=== PATIENT | female | born 1960 ===

== ENCOUNTER 2017-03-27 09:38 | Emergency (ER) | payer MEDICARE, OTHER ==
[2017-03-27 09:43] VITALS: O2SAT 97; BMI 31.3
[2017-03-27] MEDS ORDERED: oxyCODONE 5 mg Immediate Release Tab PO STA (10:56)
[2017-03-27] MEDS ORDERED: oxyCODONE 5 mg Immediate Release Tab ONE (11:08)
[2017-03-27] MEDS ORDERED: Bacitracin 500 Units/gm Oint Foilpak UD ONE (11:16)
--- NOTE | 2017-03-27 12:34 | RAD ---
PROCEDURE: Radiographs of the Right Shoulder HISTORY: r/o fx COMPARISON: No prior. FINDINGS: BONES: No definitive evidence of acute displaced fracture nor dislocation. If symptoms persist or occult fracture suspected clinically, recommend followup CT scan or MRI. . JOINTS: Mild degenerative changes both acromioclavicular and glenohumeral joints. . SOFT TISSUES: Normal. OTHER FINDINGS: None. IMPRESSION: No definitive evidence of acute displaced fracture nor dislocation. If symptoms persist or occult fracture suspected clinically, recommend followup CT scan or MRI Mild degenerative changes both acromioclavicular and glenohumeral joints. .
--- NOTE | 2017-03-27 12:36 | RAD ---
PROCEDURE: Right elbow dated 03/27/2017 HISTORY: r/o fx COMPARISON: Comparison made with concurrent radiographs of the right forearm. TECHNIQUE: Frontal and lateral views obtained. FINDINGS: BONES: No fracture or destructive lesion. JOINT SPACES: Mild degenerative changes with what appears represent spurring along the medial aspect of the coronoid process OTHER FINDINGS: No posterior nor significant anterior joint effusion identified. IMPRESSION: No evidence of acute displaced fracture nor dislocation. Mild DJD.
--- NOTE | 2017-03-27 12:36 | C.PDOC ---
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 Patient states she was holding her grand daughter in her left hand and broke her fall with outstretch right hand. Patient reports pain to the bilateral knees, right wrist and right shoulder. Denies LOC, head injury, symptoms prior to the fall, back pain, weakness or numbness. 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) Past Medical History Reviewed: Historical Data, Nursing Documentation, Vital Signs Vital Signs: Last Vital Signs Temp 98.7 F 03/27/17 13:47 Pulse 61 03/27/17 13:47 Resp 20 03/27/17 13:47 BP 103/61 03/27/17 13:47 Pulse Ox 97 03/27/17 16:03 - Medical History PMH: Arthritis, Asthma, CAD, Colonic Polyps (6 YRS AGO), COPD, Depression, Emphysema, Gall Bladder Disease (s/p Cholecystectomy 1998), HTN, Hypercholesterolemia, Hyperthyroidism, Hypothyroidism, Osteoporosis, Pancreatitis Surgical History: Back Surgery (cervical), Cholecystectomy (1998) - [facility] Procedures DORSAL & DORSOLUMBAR FUSION OF POSTERIOR COL/TECHNIQUE (04/04/15) ENDOSC POLYPECTOMY OF LG INTEST (01/05/15) ESOPHAGOGASTRODUODENOSCOPY [EGD] W/CLOSED BIOPSY (07/17/14) EXCISION INTERVERT DISC (02/22/14) EXCISION OF DUODENUM, ENDO, DIAGN (03/10/16) EXCISION OF STOMACH, ENDO, DIAGN (03/10/16) FLUOROSCOPY OF BILE DUCTS USING OTHER CONTRAST (03/10/16) FUSION/REFUS OF 2-3 VERTEBRAE (04/04/15) GAIT TRAINING/FUNCTIONAL AMBULATION TREATMENT (11/19/15) HOME MANAGEMENT TREATMENT (11/19/15) INSERTION OF INFUSION DEV INTO SUP VENA CAVA, PERC APPROACH (03/10/16) INSERTION OF INTERBODY SPINAL FUSION DEVICE (02/22/14) INSPECTION OF HEPATOBILIARY DUCT, ENDO (03/10/16) LEFT HEART CARDIAC CATH (02/14/14) LT HEART ANGIOCARDIOGRAM (02/14/14) NEBULIZER THERAPY (04/06/15) OCCUPATIONAL THERAPY (04/06/15) OTH CERVICAL FUSION OF ANTERIOR COLUMN, ANTERIOR TECHNIQUE (02/22/14) PHYSICAL THERAPY NEC (04/06/15) RECREATIONAL THERAPY (04/06/15) RELEASE LUMBAR VERTEBRA, OPEN APPROACH (11/14/15) REMOVAL OF INFUSION DEV FROM GREAT VESSEL, LUMP INSPECTOR APPROACH (03/10/16) ULTRASONOGRAPHY OF SUPERIOR VENA CAVA, GUIDANCE (03/10/16) Family History: States: No Known Family Hx - Social History Hx Alcohol Use: No Hx Substance Use: No - Immunization History Hx Tetanus Toxoid Vaccination: No Hx Influenza Vaccination: No Hx Pneumococcal Vaccination: No Review Of Systems Except As Marked, All Systems Reviewed And Found Negative. Musculoskeletal: Positive for: Shoulder Pain (Right Shoulder.), Arm Pain (Right Arm. ), Other ((+) Bilateral knee pain. Right wrist pain. ). Negative for: Back Pain Neurological: Negative for: Weakness, Numbness Physical Exam - Physical Exam Appears: Well, Non-toxic, In Acute Distress (Moderate distress secondary to pain. ) Skin: Warm, Dry, No Rash, Other (Right Arm - No lacerations. No abrasions. Bilateral Knees - Abrasions to the anterior aspect. ) Head: Atraumatic, Normacephalic, No Swelling, No Abrasion, No Laceration Neck: Normal, Normal ROM, Supple Chest: Symmetrical, No Tenderness Cardiovascular: Rhythm Regular, No Murmur Respiratory: Normal Breath Sounds, No Rales, No Rhonchi, No Stridor, No Wheezing Extremity: Tenderness (Diffuse tenderness to the right arm.), Capillary Refill ( <2 ), No Deformity Pulses: Left Radial: Normal, Right Radial: Normal, Left Dorsalis Pedis: Normal, Right Dorsalis Pedis: Normal Neurological/Psych: Oriented x3, Normal Speech, Normal Motor ED Course And Treatment O2 Sat by Pulse Oximetry: 97 - Other Rad X-Ray - Right Shoulder X-Ray: Viewed By Me, Read By Radiologist Interpretation: PROCEDURE: Radiographs of the Right Shoulder. HISTORY: r/o fx. COMPARISON: No prior. FINDINGS: BONES: No definitive evidence of acute displaced fracture nor dislocation. If symptoms persist or occult fracture suspected clinically, recommend followup CT scan or MRI. . JOINTS: Mild degenerative changes both acromioclavicular and glenohumeral joints. . SOFT TISSUES: Normal. OTHER FINDINGS: None. IMPRESSION: No definitive evidence of acute displaced fracture nor dislocation. If symptoms persist or occult fracture suspected clinically, recommend followup CT scan or MRI. Mild degenerative changes both acromioclavicular and glenohumeral joints. X-Ray - Right Forearm X-Ray: Viewed By Me, Read By Radiologist Interpretation: ADDENDUM: Typographical error in the procedure section of the report of which reads as follows: "Right elbow dated 03/27/2017.". This should read as follows: Right forearm dated 03/27/2017." . [ Addendum Report Added by Gavino Wilson MD at 03/27/2017 12:42:08 ]. PROCEDURE: Right elbow dated 03/27/2017. HISTORY: r/o fx. COMPARISON: Comparison made with concurrent radiographs of the right forearm. TECHNIQUE: Frontal and lateral views obtained. FINDINGS: BONES: No fracture or destructive lesion. JOINT SPACES: Mild degenerative changes with what appears represent spurring along the medial aspect of the coronoid process. OTHER FINDINGS: No posterior nor significant anterior joint effusion identified. IMPRESSION: No evidence of acute displaced fracture nor dislocation. Mild DJD. X-Ray - Right Elbow X-Ray: Viewed By Me, Read By Radiologist Interpretation: PROCEDURE: Right elbow dated 03/27/2017. HISTORY: r/o fx. COMPARISON: Correlation made with concurrent radiographs of the right elbow. FINDINGS: BONES: Normal. No fracture. JOINTS: Mild DJD with small osteophyte seen projecting along the medial aspect of the olecranon process. SOFT TISSUES: Normal. JOINT EFFUSION: No posterior nor significant anterior joint effusion. OTHER FINDINGS: None. IMPRESSION: No acute fractures. Mild DJD. X-Ray - Bilateral Knees X-Ray: Viewed By Me, Read By Radiologist Interpretation: PROCEDURE: Bilateral knees. AP lateral and tunnel views of the knees performed. HISTORY: Dated 03/27/2017 rule out fracture. COMPARISON : No prior. FINDINGS: Current study reveals no evidence of acute displaced fracture nor dislocation. The osseous structures appear intact. Joint spaces are relatively preserved. . There appears to be a small small bilateral suprapatellar joint effusions right slightly larger than left. . If symptoms persist or occult fracture suspected clinically recommend repeat radiographs in 5-10 days as most fractures should become radiographically evident in this timeframe. Impression: No fracture. There appears be small suprapatellar joint effusions right slightly larger than left . If symptoms persist or occult fracture suspected clinically recommend followup CT scan. Medical Decision Making Medical Decision Making: PLAN: * X-Ray - Bilateral Knees, Right Elbow, Right Forearm, Right Shoulder, Right Wrist * Flexeril PO * Motrin PO * Percocet PO * Tetanus IM Disposition - Disposition Referrals: [facility] Kemi Ge, [Non-Staff] - Disposition: HOME/ ROUTINE Disposition Time: 13:30 Condition: IMPROVED Additional Instructions: Thank you for letting us take care of you today. Your provider was Dr. Freeman. You were treated for multiple contusions. The emergency medical care you received today was directed at your acute symptoms. If you were prescribed any medication, please fill it and take as directed. It may take several days for your symptoms to resolve. Return to the Emergency Department if your symptoms worsen, do not improve, or if you have any other problems. Please contact your doctor or call one of the physicians/clinics you have been referred to that are listed on the Patient Visit Information form that is included in your discharge packet. Bring any paperwork you were given at discharge with you along with any medications you are taking to your follow up visit. Our treatment cannot replace ongoing medical care by a primary care provider (PCP) outside of the emergency department. Thank you for allowing the [facility] team to be part of your care today. Follow up with your doctor in 3-4 days for re-evaluation. Keep your abrasions clean and dry at all times. Prescriptions: Cyclobenzaprine [Cyclobenzaprine HCl] 10 mg PO Q8 PRN #20 tab PRN Reason: Muscle Spasm Ibuprofen [Motrin] 600 mg PO Q6 PRN #20 tab PRN Reason: Pain, Moderate (4-7) Instructions: Acute Wound Care (ED) Forms: Gen Discharge Inst Khmer Print Language: BANGLADESHI - Clinical Impression Clinical Impression: Contusion, Arm pain - Scribe Statement The provider has reviewed the documentation as recorded by the Shayna Carrasco Provider Attestation: All medical record entries made by the Ellenibernestine were at my direction and personally dictated by me. I have reviewed the chart and agree that the record accurately reflects my personal performance of the history, physical exam, medical decision making, and the department course for this patient. I have also personally directed, reviewed, and agree with the discharge instructions and disposition.
--- NOTE | 2017-03-27 12:41 | RAD ---
PROCEDURE: Right elbow dated 03/27/2017. HISTORY: r/o fx COMPARISON: Correlation made with concurrent radiographs of the right elbow FINDINGS: BONES: Normal. No fracture. JOINTS: Mild DJD with small osteophyte seen projecting along the medial aspect of the olecranon process SOFT TISSUES: Normal. JOINT EFFUSION: No posterior nor significant anterior joint effusion. OTHER FINDINGS: None. IMPRESSION: No acute fractures. Mild DJD.
[2017-03-27 13:47] VITALS: BP 103/61; PULSE 61; RESP 20; TEMP 98.7
--- NOTE | 2017-03-27 14:01 | RAD ---
PROCEDURE: Bilateral knees AP lateral and tunnel views of the knees performed. HISTORY: Dated 03/27/2017 rule out fracture. COMPARISON: No prior FINDINGS: Current study reveals no evidence of acute displaced fracture nor dislocation. The osseous structures appear intact. Joint spaces are relatively preserved. . There appears to be a small small bilateral suprapatellar joint effusions right slightly larger than left. . If symptoms persist or occult fracture suspected clinically recommend repeat radiographs in 5-10 days as most fractures should become radiographically evident in this timeframe. Impression: No fracture. There appears be small suprapatellar joint effusions right slightly larger than left . If symptoms persist or occult fracture suspected clinically recommend followup CT scan.
--- NOTE | 2017-03-27 14:45 | RAD ---
PROCEDURE: Right wrist dated 03/27/2017 HISTORY: r/o fx COMPARISON: None. FINDINGS: BONES: No evidence of acute displaced fracture nor dislocation. . The osseous structures appear grossly intact. No obvious cortical destructive changes. If symptoms persist or occult fracture suspected clinically, consider repeat radiographs in 5-10 days as most fractures should become radiographically evident in this timeframe. Alternatively, consider followup CT scan or MRI. JOINTS: Normal. No dislocation. SOFT TISSUES: Normal. OTHER FINDINGS: None. IMPRESSION: No evidence of acute displaced fracture nor dislocation. If symptoms persist or occult fracture suspected clinically recommend repeat radiographs in 5-10 days as most fractures should become radiographically evident in this timeframe. Alternatively, consider followup CT scan or MRI.
== END 2017-03-27 14:03 | disposition home or self-care (01) ==
LOC: C.ER 09:38
DX: T14.8 Other injury of unspecified body region (principal); S80.212A Abrasion, left knee, initial encounter; S80.211A Abrasion, right knee, initial encounter; W01.0XXA Fall on same level from slipping, tripping and stumbling without subsequent striking against object, initial encounter; M79.601 Pain in right arm

== ENCOUNTER 2017-06-17 16:30 | Emergency (ER) | payer MEDICARE ==
[2017-06-17 16:30] VITALS: BMI 31.3
[2017-06-17 16:35] VITALS: BP 112/69; PULSE 64; RESP 18; TEMP 97.9; O2SAT 98
--- NOTE | 2017-06-17 17:30 | C.PDOC ---
History Of Present Illness 57 year old female who presents to the ER with a complaint of a laceration to the left 3rd digit after she cut herself with a knife while slicing meat. Patient denies weakness or numbness of the finger. Time Seen by Provider: 06/17/17 16:49 Chief Complaint (Nursing): Abnormal Skin Integrity History Per: Patient History/Exam Limitations: no limitations Onset/Duration Of Symptoms: Hrs Current Symptoms Are (Timing): Still Present Location Of Injury: Left: Hand Quality Of Symptoms: Other (Laceration) Recent travel outside of the [place]: No Past Medical History Reviewed: Historical Data, Nursing Documentation, Vital Signs Vital Signs: Last Vital Signs Temp 97.9 F 06/17/17 16:34 Pulse 64 06/17/17 16:34 Resp 18 06/17/17 16:34 BP 112/69 06/17/17 16:34 Pulse Ox 98 06/17/17 17:44 - Medical History PMH: Arthritis, Asthma, CAD, Colonic Polyps (6 YRS AGO), COPD, Depression, Emphysema, Gall Bladder Disease (s/p Cholecystectomy 1998), HTN, Hypercholesterolemia, Hyperthyroidism, Hypothyroidism, Osteoporosis, Pancreatitis Surgical History: Back Surgery (cervical), Cholecystectomy (1998) - [facility] Procedures DORSAL & DORSOLUMBAR FUSION OF POSTERIOR COL/TECHNIQUE (04/04/15) ENDOSC POLYPECTOMY OF LG INTEST (01/05/15) ESOPHAGOGASTRODUODENOSCOPY [EGD] W/CLOSED BIOPSY (07/17/14) EXCISION INTERVERT DISC (02/22/14) EXCISION OF DUODENUM, ENDO, DIAGN (03/10/16) EXCISION OF STOMACH, ENDO, DIAGN (03/10/16) FLUOROSCOPY OF BILE DUCTS USING OTHER CONTRAST (03/10/16) FUSION/REFUS OF 2-3 VERTEBRAE (04/04/15) GAIT TRAINING/FUNCTIONAL AMBULATION TREATMENT (11/19/15) HOME MANAGEMENT TREATMENT (11/19/15) INSERTION OF INFUSION DEV INTO SUP VENA CAVA, PERC APPROACH (03/10/16) INSERTION OF INTERBODY SPINAL FUSION DEVICE (02/22/14) INSPECTION OF HEPATOBILIARY DUCT, ENDO (03/10/16) LEFT HEART CARDIAC CATH (02/14/14) LT HEART ANGIOCARDIOGRAM (02/14/14) NEBULIZER THERAPY (04/06/15) OCCUPATIONAL THERAPY (06/12/15) OTH CERVICAL FUSION OF ANTERIOR COLUMN, ANTERIOR TECHNIQUE (02/22/14) PHYSICAL THERAPY NEC (04/06/15) RECREATIONAL THERAPY (04/06/15) RELEASE LUMBAR VERTEBRA, OPEN APPROACH (11/14/15) REMOVAL OF INFUSION DEV FROM GREAT VESSEL, BULK PLANT AGENT APPROACH (03/10/16) ULTRASONOGRAPHY OF SUPERIOR VENA CAVA, GUIDANCE (03/10/16) Family History: States: No Known Family Hx - Social History Hx Alcohol Use: No Hx Substance Use: No - Immunization History Hx Tetanus Toxoid Vaccination: No Hx Influenza Vaccination: No Hx Pneumococcal Vaccination: No Review Of Systems Musculoskeletal: Positive for: Hand Pain Skin: Positive for: Other (Laceration) Neurological: Negative for: Weakness, Numbness Physical Exam - Physical Exam Appears: Non-toxic Skin: Warm, Dry Head: Atraumatic, Normacephalic Extremity: Normal ROM (x4), Capillary Refill (Good), Other (To distal phalanx of left 3rd digit close to nail) Pulses: Left Radial: Normal, Right Radial: Normal Neurological/Psych: Oriented x3, Normal Speech, Normal Cognition ED Course And Treatment O2 Sat by Pulse Oximetry: 98 Progress Note: Due to size of laceration and location, sutures will not be place , will use dermabond, steristrip, and dress. Laceration - Laceration Repair Left Hand 3rd Digit Wound Length (In cm): 1 Description Of Wound: Linear Wound Cleansed With: Betadine, Sterile Saline Wound Examination: Irrigated With Saline Wound Closure: Steri Strips, Skin Glue (Dermabond) Wound Complexity: Simple Disposition - Disposition Referrals: Carol Wong MD [Staff Provider] - Disposition: HOME/ ROUTINE Disposition Time: 17:29 Condition: STABLE Additional Instructions: Follow up with PMD within 2-3 days for wound check. Return to ED if feel worse. Instructions: Laceration Without Closure (ED) Forms: [employer] ([place] Citizen) - Clinical Impression Clinical Impression: Finger laceration - Scribe Statement The provider has reviewed the documentation as recorded by the Scribe Castillo Avila All medical record entries made by the Scribe were at my direction and personally dictated by me. I have reviewed the chart and agree that the record accurately reflects my personal performance of the history, physical exam, medical decision making, and the department course for this patient. I have also personally directed, reviewed, and agree with the discharge instructions and disposition.
== END 2017-06-17 17:37 | disposition home or self-care (01) ==
LOC: C.ER 16:30
DX: S61.213A Laceration without foreign body of left middle finger without damage to nail, initial encounter (principal); W26.0XXA Contact with knife, initial encounter; Y93.G1 Activity, food preparation and clean up; Y92.000 Kitchen of unspecified non-institutional (private) residence as the place of occurrence of the external cause

== ENCOUNTER → 2017-08-12 | Day surgery (SDC) | payer MEDICARE ==
--- NOTE | 2017-08-12 11:07 | CP.SDSHP ---
Same Day Surgery H & P - History Proposed Procedure: US guided FNA of right thyroid nodule Pre-Op Diagnosis: right thyroid nodule - Allergies Allergies: Allergies No Known Allergies Allergy (Verified 06/17/17 16:34) - Physical Exam Mental Status: Alert & Oriented x3 Neuro: WNL Heart: WNL Lungs: WNL - Impression Impression: Pt with a 2.6 cm right thyroid nodule. Plan US guided FNA of right thyroid nodule Pt. Evaluated Today:Candidate for Anesthesia & Procedure: No Short Stay Discharge - Short Stay Discharge Admitting Diagnosis/Reason for Visit: THYROID NODULE
--- NOTE | 2017-08-12 11:08 | PCM.SURG1 ---
Surgeon's Initial Post Op Note - Surgeon's Notes Surgeon: Jeovany Sinclair MD Staff Weapons Officer: NONE Type of Anesthesia: Local Pre-Operative Diagnosis: Right thyroid nodule Operative Findings: 2.6 cm solid right thyroid nodule Post-Operative Diagnosis: Right thyroid nodule Operation Performed: US guided FNA Specimen/Specimens Removed: 25 g FNA X 4 Estimated Blood Loss: EBL {In ML}: 1 Blood Products Given: N/A Drains Used: No Drains Post-Op Condition: Fair Date of Surgery/Procedure: 08/12/17 Time of Surgery/Procedure: 11:05
--- NOTE | 2017-08-12 13:43 | US ---
PROCEDURE: Date of Procedure: 08/12/2017 PROCEDURE: 1. Ultrasound guided FNA of right thyroid nodule, CPT 70359 2. Ultrasound guidance for FNA, 57392 Medications: 3cc 1% Lidocaine HISTORY: Enlarged right thyroid nodule. TECHNIQUE: Following informed consent and procedure time-out, a limited ultrasound patient's neck confirmed the presence of a 2.5 cm complex right thyroid nodule which is predominantly solid. After the patient's neck was prepped and draped in the usual sterile fashion, the skin was anesthetized with 1% lidocaine. Ultrasound-guided fine needle aspiration was then performed of the dominant right thyroid nodule. A total of 4 passes were made into the nodule with 25 gauge needle under ultrasound guidance. The FNA specimen was sent for routine pathology. Post biopsy ultrasound showed no hematoma. IMPRESSION: Ultrasound-guided FNA of the dominant right thyroid nodule.
== END | disposition home or self-care (01) ==
LOC: C.SPRAD 08:58
PROVIDERS: ATTEND Radiology Vascular & Interventional Radiology
DX: E04.2 Nontoxic multinodular goiter (principal)

== ENCOUNTER 2017-09-10 08:27 | Inpatient (IN) | payer MEDICARE ==
[2017-09-02 09:41] VITALS: BMI 30.2
[2017-09-10] MEDS ORDERED: Midazolam 2 MG/2 ML VIAL ONE (10:34)
[2017-09-10] MEDS ORDERED: Rocuronium 10 mg/ml (10 ml) ONE (10:35)
[2017-09-10] MEDS ORDERED: Succinylcholine Chloride 20 mg/ml Syr (5 ml) IV ONE (10:35)
[2017-09-10] MEDS ORDERED: Propofol 10 mg/ml Inj (20 ML) ONE (10:35)
[2017-09-10] MEDS ORDERED: Lidocaine Hydrochloride 5 ML INJ ONE (10:35)
[2017-09-10] MEDS ORDERED: Lidocaine 2% w Epi 1:100,000 Inj IJ ONE (10:39)
[2017-09-10] MEDS ORDERED: ceFAZolin 1 gm FROZEN Premix 1 GM/50 ML ML IVPB ONE (10:40)
[2017-09-10] MEDS ORDERED: Lactated Ringer's 1,000 ML IV ONE ×2 (10:49→14:30)
[2017-09-10] MEDS ORDERED: Neostigmine Methylsulfate 3mg/3ml Syringe IV ONE (12:30)
--- NOTE | 2017-09-10 12:59 | PCM.SURG1 ---
Surgeon's Initial Post Op Note - Surgeon's Notes Surgeon: Dr. Peña Business Analyst Ecommerce: Dr. Kumar PGY-3, Alireza [facility] Type of Anesthesia: General Endo Pre-Operative Diagnosis: Enlarging benign follicular (adenomatoid) nodule Operative Findings: Recurrent laryngeal nerve identified using intraoperative nerve monitoring Post-Operative Diagnosis: Enlarging benign follicular (adenomatoid) nodule Operation Performed: Right thyroid lobectomy with intraoperative nerve monitoring Specimen/Specimens Removed: Right thyroid and isthmus Estimated Blood Loss: EBL {In ML}: 30 Blood Products Given: N/A Drains Used: [place] Post-Op Condition: Good Date of Surgery/Procedure: 09/10/17 Time of Surgery/Procedure: 12:59
[2017-09-10] MEDS ORDERED: Albuterol-Ipratrop 20 mcg/actuation (4 g) IH PRN (13:07)
[2017-09-10] MEDS ORDERED: Albuterol 0.083% Inhal Sol (2.5 mg/3 mL) UD INH STA (13:50)
[2017-09-10] MEDS: HYDROmorphone 0.5 mg/0.5 ml ISec IVP PRN ×3 (14:07→15:58)
[2017-09-10] MEDS ORDERED: Albuterol 0.083% Inhal Sol (2.5 mg/3 mL) UD INH ONE (14:15)
[2017-09-10] MEDS ORDERED: HYDROmorphone 0.5 mg/0.5 ml ISec ONE (16:01)
--- NOTE | 2017-09-10 19:00 | CP.PCM.CON ---
History of Present Illness - History of Present Illness History of Present Illness: CC: s/p partial rt thyroidectomy HPI: 57 F HTN,COPD,chronic backpain, hypothyroidism,high cholesterol, s/p neck and lumbar spine surgery on chronic pain treatment admitted with post thyroidectomy for observation Now having pain over the operative site. no cough no bleeding dressing clear having liquid diet no cough no chest pain PMH: as noted above surgery: spinal surgery thryoidectomy breast biopsy allergy:phentermine Social: ex smoker no etoh no drug family: esrd, HTN lung cancer in the family ros: neck pain no chest pain back pain noted leg cramps noted had angiogram in the past normal back surgery Exm: Temp Pulse Resp BP Pulse Ox 97.7 F 82 20 126/71 96 09/10/17 17:42 09/10/17 17:42 09/10/17 17:42 09/10/17 17:42 09/10/17 17:42 chest good air entry neck dressing dry regular hs abd soft no edema no labs a/p: 57 F HTN,COPD,chronic backpain, hypothyroidism,high cholesterol, s/p neck and lumbar spine surgery on chronic pain treatment admitted with post thyroidectomy s/p thyroidectomy for observation 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 vitals check tsh kirsty in am possible d/c in am Past Patient History - Tetanus Immunizations Tetanus Immunization: Unknown - Past Medical History & Family History Past Medical History?: Yes - Past Social History Smoking Status: Never Smoked - CARDIAC Hx Cardiac Disorders: Yes (CAD) Hx Angina: Yes Hx Heart Attack: No Hx Hypercholesterolemia: Yes Hx Hypertension: Yes Hx Peripheral Vascular Disease: Yes - PULMONARY Hx Respiratory Disorders: Yes Hx Asthma: Yes Hx Chronic Obstructive Pulmonary Disease (COPD): Yes Hx Emphysema: Yes - NEUROLOGICAL Hx Neurological Disorder: No HX Cerebrovascular Accident: No Other/Comment: Peripheral Neuropathy, LLE radiculopathy and paresthesia. - HEENT Hx HEENT Problems: No - RENAL Hx Chronic Kidney Disease: No Hx Renal Failure: No - ENDOCRINE/METABOLIC Hx Endocrine Disorders: Yes Hx Hypothyroidism: Yes Other/Comment: HX: THYROID NODULES - HEMATOLOGICAL/ONCOLOGICAL Hx Blood Disorders: Yes Hx AIDS: No Hx Anemia: Yes Hx Blood Transfusions: Yes Hx Blood Transfusion Reaction: No - INTEGUMENTARY Hx Dermatological Problems: No - MUSCULOSKELETAL/RHEUMATOLOGICAL Hx Falls: No - GASTROINTESTINAL Hx Gastrointestinal Disorders: Yes Hx Fatty Liver Disease: Yes Hx Gall Bladder Disease: Yes Hx Gastroesophageal Reflux: Yes Hx Pancreatitis: Yes - GENITOURINARY/GYNECOLOGICAL Hx Genitourinary Disorders: No Hx Urinary Tract Infection: Yes (not at present) - PSYCHIATRIC Hx Psychophysiologic Disorder: No Hx Depression: Yes Hx Substance Use: No - SURGICAL HISTORY Hx Surgeries: Yes Hx Cardiac Catheterization: Yes (11/12/15) Hx Cholecystectomy: Yes (1998) Hx Herniorrhaphy: Yes (1999) Hx Musculoskeletal Surgery: Yes Other/Comment: Spinal Sx, Midback 2014 and Lower back 2016 Sx - ANESTHESIA Hx Anesthesia: Yes Hx Anesthesia Reactions: No Hx Malignant Hyperthermia: No Has any member of the family had a problem w/ anesthesia?: No Meds Allergies/Adverse Reactions: Allergies Allergy/AdvReac Type Severity Reaction Status Date / Time phentermine Allergy Intermediate SHORTNESS Uncoded 09/10/17 09:36 OF BREATH - Medications Medications: Current Medications Albuterol/Ipratropium (Combivent Respimat) 1 puff IH RQ4 PRN PRN Reason: Shortness of Breath Alprazolam (Xanax) 0.5 mg PO HS [facility] Carvedilol (Coreg) 10 mg PO Q12 [facility] Gabapentin (Neurontin) 600 mg PO TID [facility] Last Admin: 09/10/17 17:59 Dose: 600 mg Home Med (Alendronate Sodium [Fosamax]) 70 mg PO QWK [facility] Montelukast Sodium (Singulair) 10 mg PO HS [facility] Morphine Sulfate (Morphine) 4 mg IVP Q4 PRN PRN Reason: Pain, moderate (4-7) Last Admin: 09/10/17 17:54 Dose: 4 mg Ondansetron HCl (Zofran Inj) 4 mg IVP Q4 PRN PRN Reason: Nausea/Vomiting Pantoprazole Sodium (Protonix Ec Tab) 40 mg PO DAILY [facility] Rosuvastatin Calcium (Crestor) 10 mg PO HS [facility] Fluticasone/Salmeterol (Advair Diskus 500/50) 1 puff INH RQ12 [facility] Results - Vital Signs Recent Vital Signs: Last Vital Signs Temp 97.7 F 09/10/17 17:42 Pulse 82 09/10/17 17:42 Resp 20 09/10/17 17:42 BP 126/71 09/10/17 17:42 Pulse Ox 96 09/10/17 17:42
--- NOTE | 2017-09-11 00:56 | OP ---
PROCEDURE DATE: 09/10/2017 PREOPERATIVE DIAGNOSIS: Right thyroid nodule with follicular cells. PROCEDURE CARRIED OUT: Right thyroid lobectomy. SURGEON: Zelalem Peña Jr., MD CLIENT SERVICES ACCOUNT MANAGER: Dr. Kumar and Dr. Lobaot. INDICATIONS: The patient is a 57-year-old woman with history of previously an anterior approach to her neck, who presents with a thyroid nodule, which has increased in size, doubled in size. She has mild compressive symptoms, although the lesion is also very small, and she has follicular cells on FNA. OPERATIVE FINDINGS: Nerve was carefully identified using the NIM system, which was reliably used during the procedure. At the end of the procedure, the blood loss was 30 mL. DESCRIPTION OF PROCEDURE: The patient was given general anesthesia and intravenous antibiotics. Neck was extended and a standard thyroid incision was made. The left side was exposed by manual dissection, the right side was fully exposed. There was a separate nodule in the right upper portion. Thyroid artery was ligated, the inferior one was ligated, the nerve was identified and the thyroid lobe was removed including the area over the thyroid and isthmus. After this has been done, the wound was then closed. After hemostasis was obtained, it was excellent. Blood loss was 30 mL. The operation carried out was right thyroid lobectomy and isthmusectomy. Pathology is pending. Zelalem Peña Jr., MD cc: MD Carol Posadas MD
[2017-09-11 07:39] LABS: BASO % 0.3 % (0.0-2.0); LYMPH # 1.1 K/uL (1.0-4.3); MEAN CELL VOLUME 87.2 fL (81.0-99.0); MEAN CORPUSCULAR HEMOGLOBIN 30.2 pg (27.0-31.0); MEAN CORPUSCULAR HGB CONC 34.6 g/dL (33.0-37.0); MEAN PLATELET VOLUME 9.3 fL (7.2-11.7); MONO # 0.5 K/uL (0.0-0.8); MONO % 3.4 % (0.0-10.0); PLATELET COUNT 219 K/uL (130-400); RED CELL DISTRIBUTION WIDTH 12.7 % (11.5-14.5)
[2017-09-11 07:43] LABS: WHITE BLOOD COUNT 13.9 K/uL (4.8-10.8)
[2017-09-11] MEDS ORDERED: Fluticasone-Salmeterol 500-50mcg Diskus INH SCH (08:00)
[2017-09-11 08:07] LABS: ALB/GLOB RATIO 1.1 (1.0-2.1); ALKALINE PHOSPHATASE 76 U/L (38-126); ALT/SGPT 35 U/L (9-52); AST/SGOT 30 U/L (14-36); BILIRUBIN,TOTAL 0.5 mg/dL (0.2-1.3); BLOOD UREA NITROGEN 16 mg/dL (7-17); CALCIUM 8.3 mg/dl (8.6-10.4); CARBON DIOXIDE 23 mmol/L (22-30); CHLORIDE 101 mmol/L (98-107); GFR AFRICAN-AMERICAN > 60; GLUCOSE,RANDOM 117 mg/dL (65-105); POTASSIUM 4.2 mmol/L (3.6-5.2); SODIUM 134 mmol/L (132-148); TOTAL PROTEIN 6.7 g/dL (6.3-8.3)
[2017-09-11 08:18] LABS: THYROID STIMULATING HORMONE 0.72 mIU/L (0.46-4.68)
[2017-09-11 09:27] LABS: TOTAL CELLS COUNTED 100
[2017-09-11 09:28] LABS: NEUTROPHIL 80 % (50-75)
[2017-09-11] MEDS ORDERED: Enoxaparin 40 mg Syringe SC SCH (10:00)
[2017-09-11] MEDS ORDERED: Pantoprazole 40 mg EC Tab PO SCH (10:00)
[2017-09-11 16:27] VITALS: BP 103/57; PULSE 64; RESP 20; TEMP 98; O2SAT 96
[2017-09-11] MEDS ORDERED: Morphine 4 MG/ML VIAL IVP PRN (16:30)
--- NOTE | 2017-09-11 17:13 | CP.PCM.DIS ---
Provider - Provider Date of Admission: 09/10/17 13:02 Attending physician: Zelalem Peña Jr, MD Consults: Dr. Wong Time Spent in preparation of Discharge (in minutes): 30 Hospital Course - Lab Results Lab Results: Most Recent Lab Values WBC 13.9 K/uL (4.8-10.8) H D 09/11/17 07:23 RBC 4.01 Mil/uL (3.80-5.20) 09/11/17 07:23 Hgb 12.1 g/dL (11.0-16.0) 09/11/17 07:23 Hct 35.0 % (34.0-47.0) 09/11/17 07:23 MCV 87.2 fL (81.0-99.0) 09/11/17 07:23 MCH 30.2 pg (27.0-31.0) 09/11/17 07:23 MCHC 34.6 g/dL (33.0-37.0) 09/11/17 07:23 RDW 12.7 % (11.5-14.5) 09/11/17 07:23 Plt Count 219 K/uL (130-400) 09/11/17 07:23 MPV 9.3 fL (7.2-11.7) 09/11/17 07:23 Neut % (Auto) 88.3 % (50.0-75.0) H 09/11/17 07:23 Lymph % (Auto) 8.0 % (20.0-40.0) L 09/11/17 07:23 [place] % (Auto) 3.4 % (0.0-10.0) 09/11/17 07:23 Eos % (Auto) 0.0 % (0.0-4.0) 09/11/17 07:23 Baso % (Auto) 0.3 % (0.0-2.0) 09/11/17 07:23 Neut # 12.2 K/uL (1.8-7.0) H 09/11/17 07:23 Lymph # 1.1 K/uL (1.0-4.3) 09/11/17 07:23 [place] # 0.5 K/uL (0.0-0.8) 09/11/17 07:23 Eos # 0.0 K/uL (0.0-0.7) 09/11/17 07:23 Baso # 0.0 K/uL (0.0-0.2) 09/11/17 07:23 Neutrophils % (Manual) 80 % (50-75) H 09/11/17 07:23 Band Neutrophils % 4 % (0-2) H 09/11/17 07:23 Lymphocytes % (Manual) 15 % (20-40) L 09/11/17 07:23 Monocytes % (Manual) 1 % (0-10) 09/11/17 07:23 Platelet Estimate Normal (NORMAL) 09/11/17 07:23 RBC Morphology Normal 09/11/17 07:23 Sodium 134 mmol/L (132-148) 09/11/17 07:23 Potassium 4.2 mmol/L (3.6-5.2) 09/11/17 07:23 Chloride 101 mmol/L (98-107) 09/11/17 07:23 Carbon Dioxide 23 mmol/L (22-30) 09/11/17 07:23 Anion Gap 15 (10-20) 09/11/17 07:23 BUN 16 mg/dL (7-17) 09/11/17 07:23 Creatinine 0.8 mg/dL (0.7-1.2) 09/11/17 07:23 Est GFR ( Amer) > 60 09/11/17 07:23 Est GFR (Non-Af Amer) > 60 09/11/17 07:23 Random Glucose 117 mg/dL (65-105) H 09/11/17 07:23 Calcium 8.3 mg/dl (8.6-10.4) L 09/11/17 07:23 Total Bilirubin 0.5 mg/dL (0.2-1.3) 09/11/17 07:23 AST 30 U/L (14-36) 09/11/17 07:23 ALT 35 U/L (9-52) 09/11/17 07:23 Alkaline Phosphatase 76 U/L (38-126) 09/11/17 07:23 Total Protein 6.7 g/dL (6.3-8.3) 09/11/17 07:23 Albumin 3.5 g/dL (3.5-5.0) 09/11/17 07:23 Globulin 3.2 gm/dL (2.2-3.9) 09/11/17 07:23 Albumin/Globulin Ratio 1.1 (1.0-2.1) 09/11/17 07:23 TSH 3rd Generation 0.72 mIU/L (0.46-4.68) 09/11/17 07:23 - Hospital Course Hospital Course: 57yo F with PMHx of HTN, COPD, chronic back pain, hypothyroidism, high cholesterol, s/p neck and lumbar spine surgery with FNA showing benign follicular (adenomatoid) nodule on the right lobe of the thyroid. She presented to same day surgery on 09/10/17 for right thyroid lobectomy with intraoperative nerve monitoring. A evgeny drain was left. The next day, the drain was removed and patient was tolerating diet, using IS and cleared for discharge home to follow up with Dr. Peña in his office. Discharge Exam - Head Exam Head Exam: ATRAUMATIC, NORMAL INSPECTION - Eye Exam Eye Exam: EOMI, Normal appearance - Neck Exam Additional comments: Neck dressing clean dry and intact with evgeny drain - removed - Respiratory Exam Respiratory Exam: NORMAL BREATHING PATTERN. absent: Respiratory Distress - Cardiovascular Exam Cardiovascular Exam: +S1, +S2 - GI/Abdominal Exam GI & Abdominal Exam: absent: Distended, Firm, Guarding - Neurological Exam Neurological exam: Alert, CN II-XII Intact, Oriented x3 - Psychiatric Exam Psychiatric exam: Normal Affect, Normal Mood - Skin Skin Exam: Dry, Normal Color, Warm Discharge Plan - Follow Up Plan Condition: GOOD Disposition: HOME/ ROUTINE Instructions: Partial Thyroidectomy (DC) Additional Instructions: Follow up with Dr. Peña in his office in 1-2 weeks, call to make appointment Referrals: Zelalem Peña Jr., MD [Staff Provider] -
[2017-09-17] MEDS ORDERED: ALENDRONATE SODIUM 70 MG PO SCH (10:00)
== END 2017-09-11 19:29 | disposition home or self-care (01) | DRG 627 ==
LOC: C.SDS 08:27 → C.9S 13:02 → C.6T 15:43
PROVIDERS: ADMIT Surgery Vascular Surgery; ATTEND Surgery Vascular Surgery
PROC: 0GTH0ZZ Resection of Right Thyroid Gland Lobe, Open Approach (ICD-10-PCS; principal; 2017-09-10 11:00)
DX: E04.1 Nontoxic single thyroid nodule (principal); I10 Essential (primary) hypertension; J44.9 Chronic obstructive pulmonary disease, unspecified; G89.29 Other chronic pain; M54.9 Dorsalgia, unspecified; E78.00 Pure hypercholesterolemia, unspecified; Z87.891 Personal history of nicotine dependence; Z80.1 Family history of malignant neoplasm of trachea, bronchus and lung

== ENCOUNTER 2017-12-17 16:49 | Inpatient (IN) | payer MEDICARE ==
[2017-12-17 16:49] VITALS: BMI 30.2
[2017-12-17] MEDS ORDERED: Oxycodone/Acetaminophen 5/325 mg Tab PO STA (18:16)
--- NOTE | 2017-12-17 18:19 | C.PDOC ---
History Of Present Illness <Alyssia Hein - Last Filed: 12/17/17 18:58> <Roberta Garcia - Last Filed: 12/17/17 20:02> 57 year old female presents to the ER with a complaint of chest pain since yesterday, associated with some SOB. Patient saw her at Dr. Wong's office today and was sent to the ER for evaluation. Patient has a Hx of cardiac cath in 2016 with 60% occlusion at the LAD. Denies nausea or vomiting. Patient is also complaining of lower back pain which is chronic, she is requesting a dose of her pain medication that she takes at home. (Alyssia Hein) History Per: Patient History/Exam Limitations: no limitations Onset/Duration Of Symptoms: Days Current Symptoms Are (Timing): Still Present Associated Symptoms: denies: Nausea, Dyspnea, Diaphoresis, Syncope Modifying Factors: None Exacerbating Factors: None Alleviating Factors: None Recent travel outside of the [place]: No <Alyssia Hein - Last Filed: 12/17/17 18:58> <Roberta Garcia - Last Filed: 12/17/17 20:02> Time Seen by Provider: 12/17/17 17:47 Chief Complaint (Nursing): Chest Pain Past Medical History Reviewed: Historical Data, Nursing Documentation, Vital Signs - Medical History PMH: Anemia, Arthritis, Asthma, CAD, Colonic Polyps, COPD, Depression, Emphysema , Gall Bladder Disease, HTN, Hypercholesterolemia, Hypothyroidism, Osteoporosis , Pancreatitis Surgical History: Back Surgery (cervical), Cholecystectomy (1998) Family History: States: Unknown Family Hx - Social History Hx Alcohol Use: No Hx Substance Use: No - Immunization History Hx Tetanus Toxoid Vaccination: No Hx Influenza Vaccination: No Hx Pneumococcal Vaccination: No <Alyssia Hein - Last Filed: 12/17/17 18:58> Vital Signs: Last Vital Signs Temp 98.3 F 12/17/17 16:57 Pulse 66 12/17/17 16:57 Resp 20 12/17/17 16:57 BP 138/71 12/17/17 16:57 Pulse Ox 99 12/17/17 18:59 - [facility] Procedures DORSAL & DORSOLUMBAR FUSION OF POSTERIOR COL/TECHNIQUE (04/04/15) ENDOSC POLYPECTOMY OF LG INTEST (03/13/15) ESOPHAGOGASTRODUODENOSCOPY [EGD] W/CLOSED BIOPSY (07/17/14) EXCISION INTERVERT DISC (02/22/14) EXCISION OF DUODENUM, ENDO, DIAGN (03/10/16) EXCISION OF STOMACH, ENDO, DIAGN (03/10/16) FLUOROSCOPY OF BILE DUCTS USING OTHER CONTRAST (03/10/16) FUSION/REFUS OF 2-3 VERTEBRAE (04/04/15) GAIT TRAINING/FUNCTIONAL AMBULATION TREATMENT (11/19/15) HOME MANAGEMENT TREATMENT (11/19/15) INSERTION OF INFUSION DEV INTO SUP VENA CAVA, PERC APPROACH (03/10/16) INSERTION OF INTERBODY SPINAL FUSION DEVICE (02/22/14) INSPECTION OF HEPATOBILIARY DUCT, ENDO (03/10/16) LEFT HEART CARDIAC CATH (02/14/14) LT HEART ANGIOCARDIOGRAM (02/14/14) NEBULIZER THERAPY (04/06/15) OCCUPATIONAL THERAPY (04/06/15) OTH CERVICAL FUSION OF ANTERIOR COLUMN, ANTERIOR TECHNIQUE (02/22/14) PHYSICAL THERAPY NEC (04/06/15) RECREATIONAL THERAPY (04/06/15) RELEASE LUMBAR VERTEBRA, OPEN APPROACH (11/14/15) REMOVAL OF INFUSION DEV FROM GREAT VESSEL, TOWER CLEANER APPROACH (03/10/16) RESECTION OF RIGHT THYROID GLAND LOBE, OPEN APPROACH (09/10/17) ULTRASONOGRAPHY OF SUPERIOR VENA CAVA, GUIDANCE (03/10/16) Review Of Systems Constitutional: Negative for: Fever, Chills Cardiovascular: Positive for: Chest Pain Respiratory: Positive for: Shortness of Breath Gastrointestinal: Negative for: Nausea, Vomiting <Alyssia Hein - Last Filed: 12/17/17 18:58> Physical Exam - Physical Exam Appears: Non-toxic Skin: Normal Color, Warm, Dry Head: Atraumatic, Normacephalic Eye(s): bilateral: Normal Inspection Oral Mucosa: Moist Neck: Normal, Supple Chest: Symmetrical, No Tenderness Cardiovascular: Rhythm Regular Respiratory: Normal Breath Sounds, No Rales, No Rhonchi, No Wheezing Gastrointestinal/Abdominal: Soft, No Tenderness Extremity: Normal ROM (x4) Neurological/Psych: Oriented x3, Normal Speech <Alyssia Hein - Last Filed: 12/17/17 18:58> ED Course And Treatment ECG: Interpreted By Me, Viewed By Me ECG Rhythm: Sinus Rhythm Interpretation Of ECG: Diffuse ST/T wave abnormalites. Rate From EC O2 Sat by Pulse Oximetry: 99 (room air) Pulse Ox Interpretation: Normal Progress Note: EKG, blood work, CXR, and urinalysis ordered. Aspirin and percocet administered. <Alyssia Hein - Last Filed: 12/17/17 18:58> - Laboratory Results Result Diagrams: 12/17/17 18:52 12/17/17 18:52 <Roberta Garcia - Last Filed: 12/17/17 20:02> Disposition - Disposition Disposition Time: 18:59 <Alyssia Hein - Last Filed: 12/17/17 18:58> Discussed With DrTasha: Carol Wong Comment: accepted the pt on his service and took over the care at 8PM Doctor Will See Patient In The: Hospital Counseled Patient/Family Regarding: Studies Performed, Diagnosis - POA Present On Arrival: Poor Glycemic Control <Roberta Garcia - Last Filed: 12/17/17 20:02> - Disposition Disposition: HOSPITALIZED Condition: FAIR Forms: Saperion (Sami) - Clinical Impression Clinical Impression: Chest pain - PA / WARD HELPER / Resident Statement MD/DO has reviewed & agrees with the documentation as recorded. - Scribe Statement The provider has reviewed the documentation as recorded by the Scribe <Alyssia Hein - Last Filed: 12/17/17 18:58> <Roberta Garcia - Last Filed: 12/17/17 20:02> - Scribe Statement Castillo Avila All medical record entries made by the Scribe were at my direction and personally dictated by me. I have reviewed the chart and agree that the record accurately reflects my personal performance of the history, physical exam, medical decision making, and the department course for this patient. I have also personally directed, reviewed, and agree with the discharge instructions and disposition. (Alyssia Hein) Physician Patient Turnover Patient Signed Over To: Roberta Garcia Handoff Comments: pending labs and dispo <Alyssia Hein - Last Filed: 12/17/17 18:58> Decision To Admit <Alyssia Hein - Last Filed: 12/17/17 18:58> - Pt Status Changed To: Hospital Disposition Of: Inpatient - Admit Certification Admit to Inpatient:: After my assessment, the patient will require hospitalization for at least two midnights. This is because of the severity of symptoms shown, intensity of services needed, and/or the medical risk in this patient being treated as an outpatient. - InPatient: Physician Admission Certification: I certify that this patient requires 2 or more midnights of care for the following reason:: After my assessment, the patient will require hospitalization for at least two midnights. This is because of the severity of symptoms shown, intensity of services needed, and/or the medical risk in this patient being treated as an outpatient. - . Bed Request Type: Telemetry Admitting Physician: Carol Wong <Roberta Garcia - Last Filed: 12/17/17 20:02> - . Patient Diagnosis: Chest pain
[2017-12-17] MEDS ORDERED: Oxycodone/Acetaminophen 5/325 mg Tab ONE (18:40)
[2017-12-17 19:00] LABS: BASO # 0.1 K/uL (0.0-0.2); BASO % 0.6 % (0.0-2.0); EOS # 0.1 K/uL (0.0-0.7); EOS % 0.7 % (0.0-4.0); HEMOGLOBIN 13.5 g/dL (11.0-16.0); LYMPH # 3.2 K/uL (1.0-4.3); LYMPH % 35.7 % (20.0-40.0); MEAN CELL VOLUME 89.4 fL (81.0-99.0); MEAN CORPUSCULAR HEMOGLOBIN 30.8 pg (27.0-31.0); MEAN CORPUSCULAR HGB CONC 34.4 g/dL (33.0-37.0); MEAN PLATELET VOLUME 8.7 fL (7.2-11.7); MONO # 0.5 K/uL (0.0-0.8); MONO % 5.1 % (0.0-10.0); NEUT # 5.1 K/uL (1.8-7.0); NEUT % 57.9 % (50.0-75.0); NRBC % 0.1 % (0.0-2.0); RBC 4.39 Mil/uL (3.80-5.20); RED CELL DISTRIBUTION WIDTH 12.6 % (11.5-14.5); WHITE BLOOD COUNT 8.9 K/uL (4.8-10.8)
--- NOTE | 2017-12-17 19:03 | RAD ---
HISTORY: CP COMPARISON: Chest x-ray performed 07/20/17 TECHNIQUE: Chest, one view. FINDINGS: Examination limited by habitus. LUNGS: No focal consolidation. Please note that chest x-ray has limited sensitivity for the detection of pulmonary masses. PLEURA: No significant pleural effusion identified. No definite pneumothorax. CARDIOVASCULAR: Heart size appears top normal. OSSEOUS STRUCTURES: Partially imaged cervical fusion hardware. VISUALIZED UPPER ABDOMEN: Right upper quadrant surgical clips. OTHER FINDINGS: None. IMPRESSION: No focal consolidation, significant pleural effusion, or definite pneumothorax identified.
[2017-12-17 19:08] LABS: PROTHROMBIN TIME 11.1 SECONDS (9.7-12.2)
[2017-12-17 19:09] LABS: ALB/GLOB RATIO 1.3 (1.0-2.1); ALBUMIN 4.3 g/dL (3.5-5.0); ALT/SGPT 24 U/L (9-52); AST/SGOT 28 U/L (14-36); BLOOD UREA NITROGEN 18 mg/dL (7-17); CALCIUM 9.9 mg/dl (8.6-10.4); GFR AFRICAN-AMERICAN > 60; GFR NON-AFRICAN AMERICAN 51
[2017-12-17 19:18] LABS: SQUAMOUS EPITHIAL < 1 /hpf (0-5); URINE BACTERIA RARE (<OCC); URINE BILIRUBIN NEGATIVE (NEGATIVE); URINE BLOOD 1+ (NEGATIVE); URINE CLARITY Clear (Clear); URINE COLOR Yellow (YELLOW); URINE GLUCOSE (UA) NORMAL (Normal); URINE LEUKOCYTE ESTERASE NEG Leu/uL (Negative); URINE NITRATE NEGATIVE (NEGATIVE); URINE PROTEIN NEGATIVE (NEGATIVE)
[2017-12-17 19:21] LABS: CK-MB 0.75 ng/mL (0.0-3.38)
--- NOTE | 2017-12-17 21:36 | CP.PCM.HP ---
History of Present Illness - History of Present Illness History of Present Illness: Chief contents: Chest pain History of present illness: 57-year-old female with history of hypertension, COPD, cervical spondylosis, lumbar disc disease, status post surgical intervention for both the cervical, lumbar disc. Patient recently had a thyroidectomy. Currently on multiple chronic pain medication because of the ongoing pain. Patient quit smoking couple of years ago, she also underwent a coronary angiogram, showing evidence of nonobstructive coronaries 2 years ago. Patient came to the office today, complaining of retrosternal chest pain, radiating to the left side of the chest, and also left arm associated with numbness. The pain is also radiating to the left side of the jaw. Patient started noticing pain yesterday, slowly got worse, and the pain increasingly worsening recently. She also has some palpitation, and sweating. Chest pain associated with no nausea or dizziness. She denies any diarrhea, but constipation noted. Past medical history: Hypertension, osteoarthritis, osteoporosis, COPD, cervical, lumbar disc disease , status post surgery, thyroidectomy. Allergies: No known drug allergies Personal history: Patient used to smoke in the past many years ago. She quit 2 years ago. No alcohol history. Surgical history: Cervical spinal surgery, lumbar spinal surgery, cholecystectomy, partial thyroidectomy. Family history: Mother had hypertension and diabetes coronary artery disease and coronary artery bypass grafting Siblings sister had chronic kidney disease and brother of AIDS Review of system: Patient having mild headache, denies any sinus symptoms. Combining of cough, difficulty in swallowing sometimes. Patient is currently having chest pain, radiating to the left upper extremity. Constipation noted Chronic pain medications Vital signs reviewed No neck vein distention noted Chest good air entry bilaterally, no wheezing or rales noted CVS regular heart sound, no murmur noted Abdomen soft, nontender. Extremities no pedal edema PATIENT FINANCIAL SERVICES COORDINATOR alert awake oriented -3, no functional neurological deficit Patient's current labs reviewed in Troponin is negative. EKG, chest x-ray pending Assessment and recommendation: 57-year-old female with multiple medical history including COPD, hypertension, cervical spinal disease, and a lumbar spinal disease, hypothyroidism, thyroid disease, status post a thyroidectomy. Patient admitted now with acute chest pain, and associated with radiating to the left upper extremities. Patient also has a nonobstructive coronary disease, may need further workup. Chest pain cardiac likely Will get a cardiology evaluation. Close monitoring. Bronchodilators. DVT and GI prophylaxis. And will follow the patient Present on Admission - Present on Admission Any Indicators Present on Admission: No History of DVT/PE: No History of Uncontrolled Diabetes: No Urinary Catheter: No Decubitus Ulcer Present: No Past Patient History - Tetanus Immunizations Tetanus Immunization: Unknown - Past Medical History & Family History Past Medical History?: Yes - Past Social History Smoking Status: Never Smoked - CARDIAC Hx Hypercholesterolemia: Yes Hx Hypertension: Yes - PULMONARY Hx Asthma: Yes Hx Chronic Obstructive Pulmonary Disease (COPD): Yes Hx Emphysema: Yes - NEUROLOGICAL Hx Neurological Disorder: No HX Cerebrovascular Accident: No Other/Comment: Peripheral Neuropathy, LLE radiculopathy and paresthesia. - HEENT Hx HEENT Problems: No - RENAL Hx Chronic Kidney Disease: No - ENDOCRINE/METABOLIC Hx Hypothyroidism: Yes - HEMATOLOGICAL/ONCOLOGICAL Hx Anemia: Yes - INTEGUMENTARY Hx Dermatological Problems: No - MUSCULOSKELETAL/RHEUMATOLOGICAL Hx Arthritis: Yes Hx Osteoporosis: Yes - GASTROINTESTINAL Hx Gall Bladder Disease: Yes Hx Pancreatitis: Yes - GENITOURINARY/GYNECOLOGICAL Hx Genitourinary Disorders: No Hx Urinary Tract Infection: Yes (not at present) - PSYCHIATRIC Hx Depression: Yes Hx Substance Use: No - SURGICAL HISTORY Hx Cholecystectomy: Yes (1998) - ANESTHESIA Hx Anesthesia: Yes Hx Anesthesia Reactions: No Hx Malignant Hyperthermia: No Meds Allergies/Adverse Reactions: Allergies Allergy/AdvReac Type Severity Reaction Status Date / Time phentermine Allergy Intermediate SHORTNESS Uncoded 09/10/17 09:36 OF BREATH Results - Vital Signs Recent Vital Signs: Last Vital Signs Temp 98.3 F 12/17/17 16:57 Pulse 61 12/17/17 21:08 Resp 16 12/17/17 21:08 BP 158/79 H 12/17/17 21:08 Pulse Ox 100 12/17/17 21:08 - Labs Result Diagrams: 12/17/17 18:52 12/17/17 18:52 Labs: Laboratory Results - last 24 hr 12/17/17 12/17/17 12/17/17 18:52 18:52 18:52 WBC 8.9 RBC 4.39 Hgb 13.5 Hct 39.2 MCV 89.4 D MCH 30.8 MCHC 34.4 RDW 12.6 Plt Count 267 MPV 8.7 Neut % (Auto) 57.9 Lymph % (Auto) 35.7 [place] % (Auto) 5.1 Eos % (Auto) 0.7 Baso % (Auto) 0.6 Neut # (Auto) 5.1 Lymph # (Auto) 3.2 [place] # (Auto) 0.5 Eos # (Auto) 0.1 Baso # (Auto) 0.1 PT 11.1 INR 1.0 APTT 35 H Sodium Potassium Chloride Carbon Dioxide Anion Gap BUN Creatinine Est GFR ( Amer) Est GFR (Non-Af Amer) Random Glucose Calcium Total Bilirubin AST ALT Alkaline Phosphatase Total Creatine Kinase CK-MB (Mass) Troponin I Total Protein Albumin Globulin Albumin/Globulin Ratio Urine Color Yellow Urine Clarity Clear Urine pH 6.0 Ur Specific [place] 1.017 Urine Protein Negative Urine Glucose (UA) Normal Urine Ketones Negative Urine Blood 1+ H Urine Nitrate Negative Urine Bilirubin Negative Urine Urobilinogen 4.0 H Ur Leukocyte Esterase Neg Urine WBC (Auto) < 1 Urine RBC (Auto) 8 H Ur Squamous Epith Cells < 1 Urine Bacteria Rare 12/17/17 18:52 WBC RBC Hgb Hct MCV MCH MCHC RDW Plt Count MPV Neut % (Auto) Lymph % (Auto) [place] % (Auto) Eos % (Auto) Baso % (Auto) Neut # (Auto) Lymph # (Auto) [place] # (Auto) Eos # (Auto) Baso # (Auto) PT INR APTT Sodium 139 Potassium 4.1 Chloride 98 Carbon Dioxide 28 Anion Gap 16 BUN 18 H Creatinine 1.1 Est GFR ( Amer) > 60 Est GFR (Non-Af Amer) 51 Random Glucose 111 H Calcium 9.9 Total Bilirubin 0.3 AST 28 ALT 24 Alkaline Phosphatase 101 Total Creatine Kinase 180 H CK-MB (Mass) 0.75 Troponin I < 0.0120 Total Protein 7.6 Albumin 4.3 Globulin 3.3 Albumin/Globulin Ratio 1.3 Urine Color Urine Clarity Urine pH Ur Specific [place] Urine Protein Urine Glucose (UA) Urine Ketones Urine Blood Urine Nitrate Urine Bilirubin Urine Urobilinogen Ur Leukocyte Esterase Urine WBC (Auto) Urine RBC (Auto) Ur Squamous Epith Cells Urine Bacteria
[2017-12-17] MEDS ORDERED: Morphine 4 MG/ML VIAL ONE (22:35)
[2017-12-18] MEDS ORDERED: Oxycodone/Acetaminophen 5/325 mg Tab ONE ×3 (00:23→12:25)
[2017-12-18] MEDS: Oxycodone/Acetaminophen 5/325 mg Tab PO PRN ×4 (00:32→18:43)
[2017-12-18] MEDS ORDERED: Albuterol-Ipratrop 3 mg / 0.5 (3 ml) UD ONE (01:37)
[2017-12-18 04:59] LABS: CK-MB 0.65 ng/mL (0.0-3.38)
[2017-12-18] MEDS: Fluticasone-Salmeterol 250-50mcg Diskus INH SCH ×2 (08:49→20:19)
[2017-12-18] MEDS: Pantoprazole 40 mg EC Tab PO SCH (10:35)
[2017-12-18] MEDS: Cilostazol 50 mg Tab UD PO SCH ×2 (10:35→18:06)
[2017-12-18] MEDS: Enoxaparin 40 mg Syringe SC SCH (10:37)
[2017-12-18] MEDS: Ranolazine 500 mg Extended Release Tablets PO SCH ×2 (10:38→18:41)
--- NOTE | 2017-12-18 13:33 | CP.PCM.PN ---
Subjective - Date & Time of Evaluation Date of Evaluation: 12/18/17 Time of Evaluation: 13:33 - Subjective Subjective: The patient still continues to have pain over the left side of the chest, pain over the left side of the arm also in the left jaw. Morning cardiac enzymes are negative. Generalized body pain also noted, including the left leg pain. Poor appetite. No nausea and no vomiting. On examination: HEENT PERRLA, neck supple No thyromegaly was noted and no cervical adenopathy noted Chest bilateral good air entry, no wheezing or rales noted CVS regular heart sound, no murmur Abdomen soft and no organomegaly Extremities no pedal edema, no leg swelling, pedal pulses are good. PROVIDER CONTRACTING CONSULTANT alert awake oriented x3 no functional neurological deficit. Patient's current labs reviewed. Cardiac enzymes are negative, EKG showing no evidence of ST-T changes. Assessment and recommendation: 57-year-old female with multiple medical history including COPD, hypertension, cervical spinal disease, and a lumbar spinal disease, hypothyroidism, thyroid disease, status post a thyroidectomy. Cardiology evaluation is pending. Currently having ongoing chest pain, nonspecific, less likely cardiac in origin , will continue the current treatment. Will monitor the patient. The further cardiology to be evaluating, and if needed workup can be done as per the cardiology. Objective - Vital Signs/Intake and Output Vital Signs (last 24 hours): Temp Pulse Resp BP Pulse Ox 98.6 F 56 L 16 129/75 98 12/18/17 12:29 12/18/17 12:29 12/18/17 12:29 12/18/17 12:29 12/18/17 12:29 - Medications Medications: Current Medications Albuterol/Ipratropium (Duoneb 3 Mg/0.5 Mg (3 Ml) Ud) 3 ml INH RQ6 PRN PRN Reason: Cough Alprazolam (Xanax) 0.5 mg PO HS [facility] Last Admin: 12/17/17 22:36 Dose: 0.5 mg Aspirin (Aspirin Chewable) 81 mg PO DAILY [facility] Last Admin: 12/18/17 10:36 Dose: 81 mg Carvedilol (Coreg) 6.25 mg PO Q12 [facility] Last Admin: 12/18/17 10:35 Dose: 6.25 mg Cilostazol (Pletal) 50 mg PO BID [facility] Last Admin: 12/18/17 10:35 Dose: 50 mg Enoxaparin Sodium (Lovenox) 40 mg SC DAILY [facility] Last Admin: 12/18/17 10:37 Dose: 40 mg Gabapentin (Neurontin) 600 mg PO TID [facility] Last Admin: 12/18/17 10:35 Dose: 600 mg Montelukast Sodium (Singulair) 10 mg PO HS [facility] Oxycodone/Acetaminophen (Percocet 5/325 Mg Tab) 2 tab PO Q6H PRN PRN Reason: Pain, moderate (4-7) Stop: 12/20/17 21:26 Last Admin: 12/18/17 12:24 Dose: 2 tab Pantoprazole Sodium (Protonix Ec Tab) 40 mg PO DAILY [facility] Last Admin: 12/18/17 10:35 Dose: 40 mg Ranolazine (Ranexa) 500 mg PO BID [facility] Last Admin: 12/18/17 10:38 Dose: 500 mg Rosuvastatin Calcium (Crestor) 10 mg PO HS [facility] Last Admin: 12/17/17 22:36 Dose: 10 mg Fluticasone/Salmeterol (Advair Diskus 250/50) 1 puff INH RQ12 [facility] Last Admin: 12/18/17 08:49 Dose: 1 puff - Labs Labs: 12/17/17 18:52 12/17/17 18:52 PT 11.1 SECONDS (9.7-12.2) 12/17/17 18:52 INR 1.0 12/17/17 18:52 APTT 35 SECONDS (21-34) H 12/17/17 18:52
--- NOTE | 2017-12-18 13:45 | CARD ---
APPROVED REPORT EKG Measurement Heart [id number] 140P37 [id number] <Conclusion> Normal sinus rhythm Nonspecific ST and T wave abnormality Abnormal ECG
--- NOTE | 2017-12-18 20:13 | CP.PCM.CON ---
History of Present Illness - History of Present Illness History of Present Illness: 57 F with hx of non obstructive CAD admitted for chest pain PIOTR x 2 negative Hx of Normal EF Chest pain is exertional and recent onset Review Of Systems Except As Marked, All Systems Reviewed And Found Negative. Cardiovascular: Positive for: Chest Pain Respiratory: Positive for: Cough, SOB with Excertion Physical Exam - Physical Exam Appears: Non-toxic, No Acute Distress Skin: Normal Color, Warm, Dry Head: Atraumatic, Normacephalic Eye(s): bilateral: Normal Inspection, PERRL, EOMI Oral Mucosa: Moist Throat: Normal, No Erythema, No Exudate, No Drooling Neck: Normal, Normal ROM Chest: Symmetrical, No Tenderness Cardiovascular: Rhythm Regular, No Edema, No Murmur Respiratory: Normal Breath Sounds, No Rales, No Rhonchi, No Wheezing Gastrointestinal/Abdominal: Normal Exam, Soft, No Tenderness, No Distention, No Guarding, No Rebound Extremity: Normal ROM, No Tenderness, No Deformity, No Swelling Neurological/Psych: Oriented x3, Normal Speech, Normal Cognition Past Patient History - Tetanus Immunizations Tetanus Immunization: Unknown - Past Medical History & Family History Past Medical History?: Yes - Past Social History Smoking Status: Former Smoker - CARDIAC Hx Hypercholesterolemia: Yes Hx Hypertension: Yes - PULMONARY Hx Asthma: Yes Hx Chronic Obstructive Pulmonary Disease (COPD): Yes Hx Emphysema: Yes - NEUROLOGICAL Hx Neurological Disorder: Yes HX Cerebrovascular Accident: No Other/Comment: Peripheral Neuropathy, LLE radiculopathy and paresthesia. - HEENT Hx HEENT Problems: No - RENAL Hx Chronic Kidney Disease: No - ENDOCRINE/METABOLIC Hx Hypothyroidism: Yes - HEMATOLOGICAL/ONCOLOGICAL Hx Anemia: Yes - INTEGUMENTARY Hx Dermatological Problems: No - MUSCULOSKELETAL/RHEUMATOLOGICAL Hx Falls: No Hx Osteoarthritis: Yes Hx Osteoporosis: Yes - GASTROINTESTINAL Hx Gall Bladder Disease: Yes Hx Pancreatitis: Yes - GENITOURINARY/GYNECOLOGICAL Hx Genitourinary Disorders: Yes Hx Urinary Tract Infection: Yes (not at present) - PSYCHIATRIC Hx Substance Use: No - SURGICAL HISTORY Hx Angiogram: Yes (coronary) Hx Cholecystectomy: Yes (1998) Hx Thyroidectomy: Yes Other/Comment: cervical spinal sx; lumbar spinal sx - ANESTHESIA Hx Anesthesia: Yes Hx Anesthesia Reactions: No Hx Malignant Hyperthermia: No Meds Allergies/Adverse Reactions: Allergies Allergy/AdvReac Type Severity Reaction Status Date / Time phentermine Allergy Intermediate SHORTNESS Uncoded 09/10/17 09:36 OF BREATH - Medications Medications: Current Medications Albuterol/Ipratropium (Duoneb 3 Mg/0.5 Mg (3 Ml) Ud) 3 ml INH RQ6 PRN PRN Reason: Cough Alprazolam (Xanax) 0.5 mg PO HS [facility] Last Admin: 12/17/17 22:36 Dose: 0.5 mg Aspirin (Aspirin Chewable) 81 mg PO DAILY [facility] Last Admin: 12/18/17 10:36 Dose: 81 mg Carvedilol (Coreg) 6.25 mg PO Q12 [facility] Last Admin: 12/18/17 10:35 Dose: 6.25 mg Cilostazol (Pletal) 50 mg PO BID [facility] Last Admin: 12/18/17 18:06 Dose: 50 mg Cyclobenzaprine HCl (Flexeril) 5 mg PO TID [facility] Last Admin: 12/18/17 18:42 Dose: 5 mg Enoxaparin Sodium (Lovenox) 40 mg SC DAILY [facility] Last Admin: 12/18/17 10:37 Dose: 40 mg Gabapentin (Neurontin) 600 mg PO TID [facility] Last Admin: 12/18/17 18:05 Dose: 600 mg Montelukast Sodium (Singulair) 10 mg PO HS [facility] Oxycodone/Acetaminophen (Percocet 5/325 Mg Tab) 2 tab PO Q6H PRN PRN Reason: Pain, moderate (4-7) Stop: 12/20/17 21:26 Last Admin: 12/18/17 18:43 Dose: 2 tab Pantoprazole Sodium (Protonix Ec Tab) 40 mg PO DAILY [facility] Last Admin: 12/18/17 10:35 Dose: 40 mg Ranolazine (Ranexa) 500 mg PO BID [facility] Last Admin: 12/18/17 18:41 Dose: 500 mg Rosuvastatin Calcium (Crestor) 10 mg PO HS [facility] Last Admin: 12/17/17 22:36 Dose: 10 mg Fluticasone/Salmeterol (Advair Diskus 250/50) 1 puff INH RQ12 [facility] Last Admin: 12/18/17 08:49 Dose: 1 puff Results - Vital Signs Recent Vital Signs: Last Vital Signs Temp 97.9 F 12/18/17 15:30 Pulse 58 L 12/18/17 15:30 Resp 20 12/18/17 15:30 BP 111/69 12/18/17 15:30 Pulse Ox 95 12/18/17 15:30 - Labs Result Diagrams: 12/17/17 18:52 12/17/17 18:52 Labs: Laboratory Results - last 24 hr 12/18/17 04:24 Total Creatine Kinase 115 CK-MB (Mass) 0.65 Troponin I < 0.0120 Assessment & Plan - Assessment and Plan (Free Text) Assessment: (1) Chest pain Assessment & Plan: S/P cardiac Cath: Non obstructive coronaries 2014 (50% LAD and 60% RCA) Likely needs repeat cath Status: Acute (3) Gait difficulty Status: Acute (4) History of laminectomy Status: Acute (5) Hyperlipidemia Assessment & Plan: Medical mgt Status: Acute (6) Hypertension Assessment & Plan: Controlled Status: Acute
[2017-12-18] MEDS: Albuterol-Ipratrop 3 mg / 0.5 (3 ml) UD INH PRN (20:20)
[2017-12-19] MEDS: Oxycodone/Acetaminophen 5/325 mg Tab PO PRN ×2 (08:01→16:39)
[2017-12-19] MEDS ORDERED: Nitroglycerin 2% Ointment Foilpak UD TOP PRN (08:48)
[2017-12-19] MEDS: Pantoprazole 40 mg EC Tab PO SCH (09:13)
[2017-12-19] MEDS: Cilostazol 50 mg Tab UD PO SCH ×2 (09:14→17:37)
[2017-12-19] MEDS: Enoxaparin 40 mg Syringe SC SCH (09:16)
--- NOTE | 2017-12-19 09:35 | CP.PCM.PN ---
Subjective - Date & Time of Evaluation Date of Evaluation: 12/19/17 Time of Evaluation: 09:34 - Subjective Subjective: Patient still continues to have the chest pain over the left inframammary area, radiating to the left upper extremity. denies any nausea vomiting. But some shortness of breath noted, and is no palpitation. Also she has a bilateral lower extremity discomfort pain, and numbness. On examination: Vital signs reviewed No neck vein distention noted Chest good air entry bilaterally, no wheezing or rales noted CVS regular heart sound, no murmur noted Abdomen soft, nontender. 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 Yesterday cardiac enzymes are negative, no changes in the monitoring. Awaiting cardiology follow-up Assessment and recommendation: 57-year-old female with multiple medical problems including COPD, hypertension, cervical, lumbar spinal disease, status post surgical intervention, hypothyroidism, thyroidectomy. Patient also has a nonobstructive coronary disease. Underlying spasm cannot be ruled out. Will add nitroglycerin as needed. Will monitor. Cardiology follow-up. We'll follow the patient Objective - Vital Signs/Intake and Output Vital Signs (last 24 hours): Temp Pulse Resp BP Pulse Ox 98.0 F 61 18 92/56 L 97 12/19/17 07:00 12/19/17 08:18 12/19/17 07:00 12/19/17 07:00 12/19/17 07:00 Intake and Output: 12/19/17 12/19/17 06:59 18:59 Intake Total 350 Balance 350 - Medications Medications: Current Medications Albuterol/Ipratropium (Duoneb 3 Mg/0.5 Mg (3 Ml) Ud) 3 ml INH RQ6 PRN PRN Reason: Cough Last Admin: 12/18/17 20:20 Dose: 3 ml Alprazolam (Xanax) 0.5 mg PO HS [facility] Last Admin: 12/18/17 22:20 Dose: 0.5 mg Aspirin (Aspirin Chewable) 81 mg PO DAILY [facility] Last Admin: 12/19/17 09:14 Dose: 81 mg Carvedilol (Coreg) 6.25 mg PO Q12 [facility] Last Admin: 12/19/17 09:13 Dose: 6.25 mg Cilostazol (Pletal) 50 mg PO BID [facility] Last Admin: 12/19/17 09:14 Dose: 50 mg Cyclobenzaprine HCl (Flexeril) 5 mg PO TID [facility] Last Admin: 12/19/17 09:14 Dose: 5 mg Enoxaparin Sodium (Lovenox) 40 mg SC DAILY [facility] Last Admin: 12/19/17 09:16 Dose: 40 mg Gabapentin (Neurontin) 600 mg PO TID [facility] Last Admin: 12/19/17 09:13 Dose: 600 mg Montelukast Sodium (Singulair) 10 mg PO [facility] Last Admin: 12/18/17 22:19 Dose: 10 mg Nitroglycerin (Nitro-Bid 2% Oint) 1 ea TOP Q6 PRN PRN Reason: chest pain Last Admin: 12/19/17 09:15 Dose: 1 ea Oxycodone/Acetaminophen (Percocet 5/325 Mg Tab) 2 tab PO Q6H PRN PRN Reason: Pain, moderate (4-7) Stop: 12/20/17 21:26 Last Admin: 12/19/17 08:01 Dose: 2 tab Pantoprazole Sodium (Protonix Ec Tab) 40 mg PO DAILY [facility] Last Admin: 12/19/17 09:13 Dose: 40 mg Ranolazine (Ranexa) 500 mg PO BID [facility] Last Admin: 12/18/17 18:41 Dose: 500 mg Rosuvastatin Calcium (Crestor) 10 mg PO [facility] Last Admin: 12/18/17 22:20 Dose: 10 mg Fluticasone/Salmeterol (Advair Diskus 250/50) 1 puff INH RQ12 [facility] Last Admin: 12/18/17 20:19 Dose: 1 puff - Labs Labs: 12/17/17 18:52 12/17/17 18:52 PT 11.1 SECONDS (9.7-12.2) 12/17/17 18:52 INR 1.0 12/17/17 18:52 APTT 35 SECONDS (21-34) H 12/17/17 18:52
[2017-12-19] MEDS: Albuterol-Ipratrop 3 mg / 0.5 (3 ml) UD INH PRN ×2 (09:39→19:47)
[2017-12-19] MEDS: Fluticasone-Salmeterol 250-50mcg Diskus INH SCH ×2 (09:39→19:47)
[2017-12-19] MEDS: Ranolazine 500 mg Extended Release Tablets PO SCH ×2 (11:34→17:37)
--- NOTE | 2017-12-19 20:15 | CARD ---
APPROVED REPORT EKG Measurement Heart [id number] FL 144P37 [id number] <Conclusion> Sinus bradycardia Cannot rule out Inferior infarct, age undetermined T wave abnormality, consider anterior ischemia Abnormal ECG
[2017-12-20] MEDS: Oxycodone/Acetaminophen 5/325 mg Tab PO PRN ×4 (02:26→22:23)
[2017-12-20] MEDS: Albuterol-Ipratrop 3 mg / 0.5 (3 ml) UD INH PRN ×2 (07:30→20:06)
[2017-12-20] MEDS: Fluticasone-Salmeterol 250-50mcg Diskus INH SCH ×2 (07:30→20:06)
[2017-12-20] MEDS: Pantoprazole 40 mg EC Tab PO SCH (09:10)
[2017-12-20] MEDS: Enoxaparin 40 mg Syringe SC SCH (09:11)
[2017-12-20] MEDS: Ranolazine 500 mg Extended Release Tablets PO SCH ×2 (09:11→18:13)
[2017-12-20] MEDS: Cilostazol 50 mg Tab UD PO SCH ×2 (09:12→18:14)
--- NOTE | 2017-12-20 10:50 | CP.PCM.PN ---
Subjective - Date & Time of Evaluation Date of Evaluation: 12/19/17 Time of Evaluation: 19:35 - Subjective Subjective: Patient seen and evaluated Exertional chest discomfort Review Of Systems Except As Marked, All Systems Reviewed And Found Negative. Cardiovascular: Positive for: Chest Pain Respiratory: Positive for: Cough, SOB with Excertion Physical Exam - Physical Exam Appears: Non-toxic, No Acute Distress Skin: Normal Color, Warm, Dry Head: Atraumatic, Normacephalic Eye(s): bilateral: Normal Inspection, PERRL, EOMI Oral Mucosa: Moist Throat: Normal, No Erythema, No Exudate, No Drooling Neck: Normal, Normal ROM Chest: Symmetrical, No Tenderness Cardiovascular: Rhythm Regular, No Edema, No Murmur Respiratory: Normal Breath Sounds, No Rales, No Rhonchi, No Wheezing Gastrointestinal/Abdominal: Normal Exam, Soft, No Tenderness, No Distention, No Guarding, No Rebound Extremity: Normal ROM, No Tenderness, No Deformity, No Swelling Neurological/Psych: Oriented x3, Normal Speech, Normal Cognition Objective - Vital Signs/Intake and Output Vital Signs (last 24 hours): Temp Pulse Resp BP Pulse Ox 97.9 F 76 20 96/63 L 98 12/19/17 23:05 12/19/17 23:05 12/19/17 23:05 12/19/17 23:05 12/19/17 23:05 - Medications Medications: Current Medications Albuterol/Ipratropium (Duoneb 3 Mg/0.5 Mg (3 Ml) Ud) 3 ml INH RQ6 PRN PRN Reason: Cough Last Admin: 12/19/17 19:47 Dose: 3 ml Alprazolam (Xanax) 0.5 mg PO HS [facility] Last Admin: 12/19/17 21:20 Dose: 0.5 mg Aspirin (Aspirin Chewable) 81 mg PO DAILY [facility] Last Admin: 12/20/17 09:10 Dose: 81 mg Carvedilol (Coreg) 6.25 mg PO Q12 [facility] Last Admin: 12/20/17 09:10 Dose: 6.25 mg Cilostazol (Pletal) 50 mg PO BID [facility] Last Admin: 12/20/17 09:12 Dose: 50 mg Cyclobenzaprine HCl (Flexeril) 5 mg PO TID [facility] Last Admin: 12/20/17 09:12 Dose: 5 mg Enoxaparin Sodium (Lovenox) 40 mg SC DAILY [facility] Last Admin: 12/20/17 09:11 Dose: 40 mg Gabapentin (Neurontin) 600 mg PO TID [facility] Last Admin: 12/20/17 09:10 Dose: 600 mg Montelukast Sodium (Singulair) 10 mg PO HS [facility] Last Admin: 12/19/17 21:20 Dose: 10 mg Nitroglycerin (Nitro-Bid 2% Oint) 1 ea TOP Q6 PRN PRN Reason: chest pain Last Admin: 12/19/17 09:15 Dose: 1 ea Oxycodone/Acetaminophen (Percocet 5/325 Mg Tab) 2 tab PO Q6H PRN PRN Reason: Pain, moderate (4-7) Stop: 12/20/17 21:26 Last Admin: 12/20/17 09:10 Dose: 2 tab Pantoprazole Sodium (Protonix Ec Tab) 40 mg PO DAILY [facility] Last Admin: 12/20/17 09:10 Dose: 40 mg Ranolazine (Ranexa) 500 mg PO BID [facility] Last Admin: 12/20/17 09:11 Dose: 500 mg Rosuvastatin Calcium (Crestor) 10 mg PO HS [facility] Last Admin: 12/19/17 21:20 Dose: 10 mg Fluticasone/Salmeterol (Advair Diskus 250/50) 1 puff INH RQ12 [facility] Last Admin: 12/19/17 19:47 Dose: 1 puff - Labs Labs: 12/17/17 18:52 12/17/17 18:52 PT 11.1 SECONDS (9.7-12.2) 12/17/17 18:52 INR 1.0 12/17/17 18:52 APTT 35 SECONDS (21-34) H 12/17/17 18:52 Assessment and Plan - Assessment and Plan (Free Text) Assessment: (1) Chest pain Assessment & Plan: S/P cardiac Cath: Non obstructive coronaries 2015 (50% LAD and 60% RCA) Likely needs repeat cath. Cath Thursday Status: Acute (3) Gait difficulty Status: Acute (4) History of laminectomy Status: Acute (5) Hyperlipidemia Assessment & Plan: Medical mgt Status: Acute (6) Hypertension Assessment & Plan: Controlled Status: Acute
[2017-12-20] MEDS: Sodium Chloride 0.9% 1,000 ML IV SCH (12:04)
--- NOTE | 2017-12-20 13:02 | CP.PCM.PN ---
Subjective - Date & Time of Evaluation Date of Evaluation: 12/20/17 Time of Evaluation: 13:01 - Subjective Subjective: The patient today feeling slightly better than yesterday, the pain is still persistently noted, but improving with the nitroglycerin. Currently she is having increasing pain over the left side of the facial area, I suggested to have a CT of the head to rule out any bleeding. Minimal shortness of breath noted, using oxygen, less cough noted, no wheezing Vital signs reviewed No neck vein distention noted Chest good air entry bilaterally, no wheezing or rales noted CVS regular heart sound, no murmur noted Abdomen soft, nontender. 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 Planning to have the possible angiogram tomorrow Assessment and recommendation: 57 female with a history of COPD hypertension cervical, lumbar spinal disease, status post surgery, hypothyroidism, status post thyroidectomy, and also a severe ongoing pain. chest pain, coronary artery disease, for angiogram tomorrow we'll get a CT of the head and will follow-up the patient. Continue the nitroglycerin as needed for chest pain Objective - Vital Signs/Intake and Output Vital Signs (last 24 hours): Temp Pulse Resp BP Pulse Ox 97.9 F 76 20 96/63 L 98 12/19/17 23:05 12/19/17 23:05 12/19/17 23:05 12/19/17 23:05 12/19/17 23:05 - Medications Medications: Current Medications Albuterol/Ipratropium (Duoneb 3 Mg/0.5 Mg (3 Ml) Ud) 3 ml INH RQ6 PRN PRN Reason: Cough Last Admin: 12/20/17 07:30 Dose: 3 ml Alprazolam (Xanax) 0.5 mg PO HS [facility] Last Admin: 12/19/17 21:20 Dose: 0.5 mg Aspirin (Aspirin Chewable) 81 mg PO DAILY [facility] Last Admin: 12/20/17 09:10 Dose: 81 mg Carvedilol (Coreg) 6.25 mg PO Q12 [facility] Last Admin: 12/20/17 09:10 Dose: 6.25 mg Cilostazol (Pletal) 50 mg PO BID [facility] Last Admin: 12/20/17 09:12 Dose: 50 mg Cyclobenzaprine HCl (Flexeril) 5 mg PO TID [facility] Last Admin: 12/20/17 09:12 Dose: 5 mg Enoxaparin Sodium (Lovenox) 40 mg SC DAILY [facility] Last Admin: 12/20/17 09:11 Dose: 40 mg Gabapentin (Neurontin) 600 mg PO TID [facility] Last Admin: 12/20/17 09:10 Dose: 600 mg Sodium Chloride (Sodium Chloride 0.9%) 1,000 mls @ 70 mls/hr IV .[id number] [facility] Stop: 12/21/17 23:59 Last Admin: 12/20/17 12:04 Dose: 70 mls/hr Montelukast Sodium (Singulair) 10 mg PO [facility] Last Admin: 12/19/17 21:20 Dose: 10 mg Nitroglycerin (Nitro-Bid 2% Oint) 1 ea TOP Q6 PRN PRN Reason: chest pain Last Admin: 12/19/17 09:15 Dose: 1 ea Oxycodone/Acetaminophen (Percocet 5/325 Mg Tab) 2 tab PO Q6H PRN PRN Reason: Pain, moderate (4-7) Stop: 12/20/17 21:26 Last Admin: 12/20/17 09:10 Dose: 2 tab Pantoprazole Sodium (Protonix Ec Tab) 40 mg PO DAILY [facility] Last Admin: 12/20/17 09:10 Dose: 40 mg Ranolazine (Ranexa) 500 mg PO BID [facility] Last Admin: 12/20/17 09:11 Dose: 500 mg Rosuvastatin Calcium (Crestor) 10 mg PO HS [facility] Last Admin: 12/19/17 21:20 Dose: 10 mg Fluticasone/Salmeterol (Advair Diskus 250/50) 1 puff INH RQ12 [facility] Last Admin: 12/20/17 07:30 Dose: 1 puff - Labs Labs: 12/17/17 18:52 12/17/17 18:52 PT 11.1 SECONDS (9.7-12.2) 12/17/17 18:52 INR 1.0 12/17/17 18:52 APTT 35 SECONDS (21-34) H 12/17/17 18:52
--- NOTE | 2017-12-20 14:11 | CT ---
PROCEDURE: CT HEAD WITHOUT CONTRAST. HISTORY: headache,possible bleeding COMPARISON: None available. TECHNIQUE: Axial computed tomography images were obtained through the head/brain without intravenous contrast. Radiation dose: Total exam DLP = 921 mGy-cm. This CT exam was performed using one or more of the following dose reduction techniques: Automated exposure control, adjustment of the mA and/or kV according to patient size, and/or use of iterative reconstruction technique. FINDINGS: HEMORRHAGE: No intracranial hemorrhage. BRAIN: No mass effect or edema. Scattered focal lucencies in the subcortical and periventricular white matter suggestive for chronic microvascular ischemic change. VENTRICLES: Unremarkable. No hydrocephalus. CALVARIUM: Unremarkable. PARANASAL SINUSES: Unremarkable as visualized. No significant inflammatory changes. MASTOID AIR CELLS: Unremarkable as visualized. No inflammatory changes. OTHER FINDINGS: None. IMPRESSION: No acute intracranial abnormality. Mild chronic microvascular ischemic changes. If focal neurologic deficit persists, consider MRI.
--- NOTE | 2017-12-20 16:19 | CP.PCM.PN ---
Subjective - Date & Time of Evaluation Date of Evaluation: 12/20/17 Time of Evaluation: 13:50 - Subjective Subjective: Patient with exertional chest pain Hx of Non occlusive CAD (2014) Cardiac cath tomorrow at 3pm NPO after breakfast Objective - Vital Signs/Intake and Output Vital Signs (last 24 hours): Temp Pulse Resp BP Pulse Ox 97.9 F 68 20 96/63 L 98 12/19/17 23:05 12/20/17 08:00 12/19/17 23:05 12/19/17 23:05 12/19/17 23:05 - Medications Medications: Current Medications Albuterol/Ipratropium (Duoneb 3 Mg/0.5 Mg (3 Ml) Ud) 3 ml INH RQ6 PRN PRN Reason: Cough Last Admin: 12/20/17 07:30 Dose: 3 ml Alprazolam (Xanax) 0.5 mg PO HS [facility] Last Admin: 12/19/17 21:20 Dose: 0.5 mg Aspirin (Aspirin Chewable) 81 mg PO DAILY [facility] Last Admin: 12/20/17 09:10 Dose: 81 mg Carvedilol (Coreg) 6.25 mg PO Q12 [facility] Last Admin: 12/20/17 09:10 Dose: 6.25 mg Cilostazol (Pletal) 50 mg PO BID [facility] Last Admin: 12/20/17 09:12 Dose: 50 mg Cyclobenzaprine HCl (Flexeril) 5 mg PO TID [facility] Last Admin: 12/20/17 14:00 Dose: 5 mg Enoxaparin Sodium (Lovenox) 40 mg SC DAILY [facility] Last Admin: 12/20/17 09:11 Dose: 40 mg Gabapentin (Neurontin) 600 mg PO TID [facility] Last Admin: 12/20/17 14:00 Dose: 600 mg Sodium Chloride (Sodium Chloride 0.9%) 1,000 mls @ 70 mls/hr IV .[id number] [facility] Stop: 12/21/17 23:59 Last Admin: 12/20/17 12:04 Dose: 70 mls/hr Montelukast Sodium (Singulair) 10 mg PO HS [facility] Last Admin: 12/19/17 21:20 Dose: 10 mg Nitroglycerin (Nitro-Bid 2% Oint) 1 ea TOP Q6 PRN PRN Reason: chest pain Last Admin: 12/19/17 09:15 Dose: 1 ea Oxycodone/Acetaminophen (Percocet 5/325 Mg Tab) 2 tab PO Q6H PRN PRN Reason: Pain, moderate (4-7) Stop: 12/20/17 21:26 Last Admin: 12/20/17 15:24 Dose: 2 tab Pantoprazole Sodium (Protonix Ec Tab) 40 mg PO DAILY [facility] Last Admin: 12/20/17 09:10 Dose: 40 mg Ranolazine (Ranexa) 500 mg PO BID [facility] Last Admin: 12/20/17 09:11 Dose: 500 mg Rosuvastatin Calcium (Crestor) 10 mg PO HS [facility] Last Admin: 12/19/17 21:20 Dose: 10 mg Fluticasone/Salmeterol (Advair Diskus 250/50) 1 puff INH RQ12 [facility] Last Admin: 12/20/17 07:30 Dose: 1 puff - Labs Labs: 12/17/17 18:52 12/17/17 18:52 PT 11.1 SECONDS (9.7-12.2) 12/17/17 18:52 INR 1.0 12/17/17 18:52 APTT 35 SECONDS (21-34) H 12/17/17 18:52
[2017-12-21] MEDS: Sodium Chloride 0.9% 1,000 ML IV SCH ×3 (02:00→18:04)
[2017-12-21] MEDS: Oxycodone/Acetaminophen 5/325 mg Tab PO PRN ×3 (06:08→20:50)
[2017-12-21] MEDS: Albuterol-Ipratrop 3 mg / 0.5 (3 ml) UD INH PRN ×2 (07:23→19:30)
[2017-12-21] MEDS: Fluticasone-Salmeterol 250-50mcg Diskus INH SCH ×2 (08:18→19:30)
[2017-12-21] MEDS: Enoxaparin 40 mg Syringe SC SCH (09:39)
[2017-12-21] MEDS: Cilostazol 50 mg Tab UD PO SCH ×2 (10:07→18:02)
[2017-12-21] MEDS: Ranolazine 500 mg Extended Release Tablets PO SCH ×2 (10:07→18:02)
[2017-12-21] MEDS: Pantoprazole 40 mg EC Tab PO SCH (10:08)
--- NOTE | 2017-12-21 14:28 | CP.PCM.PN ---
Subjective - Date & Time of Evaluation Date of Evaluation: 12/21/17 Time of Evaluation: 14:28 - Subjective Subjective: Patient's vital signs stable. Still having chest tightness and pain. Scheduled to have angiogram today. Will follow the patient after the angiogram. Most likely an atypical chest pain, unclear at this time. Given the coronary artery disease underlying spasm cannot be ruled out. Continue the nitroglycerin. Blood pressure control. Will follow the patient Objective - Vital Signs/Intake and Output Vital Signs (last 24 hours): Temp Pulse Resp BP Pulse Ox 98 F 69 18 100/58 L 99 12/21/17 08:29 12/21/17 08:29 12/21/17 08:29 12/21/17 08:29 12/21/17 08:29 Intake and Output: 12/21/17 12/21/17 06:59 18:59 Intake Total 910 Balance 910 - Medications Medications: Current Medications Albuterol/Ipratropium (Duoneb 3 Mg/0.5 Mg (3 Ml) Ud) 3 ml INH RQ6 PRN PRN Reason: Cough Last Admin: 12/21/17 07:23 Dose: 3 ml Alprazolam (Xanax) 0.5 mg PO HS [facility] Last Admin: 12/20/17 21:45 Dose: 0.5 mg Aspirin (Aspirin Chewable) 81 mg PO DAILY [facility] Last Admin: 12/21/17 10:07 Dose: 81 mg Carvedilol (Coreg) 6.25 mg PO Q12 [facility] Last Admin: 12/21/17 09:40 Dose: Not Given Cilostazol (Pletal) 50 mg PO BID [facility] Last Admin: 12/21/17 10:07 Dose: 50 mg Cyclobenzaprine HCl (Flexeril) 5 mg PO TID [facility] Last Admin: 12/21/17 13:52 Dose: 5 mg Enoxaparin Sodium (Lovenox) 40 mg SC DAILY [facility] Last Admin: 12/21/17 09:39 Dose: Not Given Gabapentin (Neurontin) 600 mg PO TID [facility] Last Admin: 12/21/17 13:52 Dose: 600 mg Sodium Chloride (Sodium Chloride 0.9%) 1,000 mls @ 70 mls/hr IV .[id number] [facility] Stop: 12/21/17 23:59 Last Admin: 12/21/17 04:05 Dose: 70 mls/hr Montelukast Sodium (Singulair) 10 mg PO HS [facility] Last Admin: 12/20/17 21:45 Dose: 10 mg Nitroglycerin (Nitro-Bid 2% Oint) 1 ea TOP Q6 PRN PRN Reason: chest pain Last Admin: 12/19/17 09:15 Dose: 1 ea Oxycodone/Acetaminophen (Percocet 5/325 Mg Tab) 2 tab PO Q6H PRN PRN Reason: Pain, severe (8-10) Stop: 12/23/17 22:16 Last Admin: 12/21/17 13:52 Dose: 2 tab Pantoprazole Sodium (Protonix Ec Tab) 40 mg PO DAILY [facility] Last Admin: 12/21/17 10:08 Dose: 40 mg Ranolazine (Ranexa) 500 mg PO BID [facility] Last Admin: 12/21/17 10:07 Dose: 500 mg Rosuvastatin Calcium (Crestor) 10 mg PO HS [facility] Last Admin: 12/20/17 21:45 Dose: 10 mg Fluticasone/Salmeterol (Advair Diskus 250/50) 1 puff INH RQ12 [facility] Last Admin: 12/21/17 08:18 Dose: 1 puff - Labs Labs: 12/17/17 18:52 12/17/17 18:52 PT 11.1 SECONDS (9.7-12.2) 12/17/17 18:52 INR 1.0 12/17/17 18:52 APTT 35 SECONDS (21-34) H 12/17/17 18:52
--- NOTE | 2017-12-21 23:13 | CP.PCM.PN ---
Subjective - Date & Time of Evaluation Date of Evaluation: 12/21/17 Time of Evaluation: 20:10 - Subjective Subjective: Patient for Cath tomorrow t 3pm Objective - Vital Signs/Intake and Output Vital Signs (last 24 hours): Temp Pulse Resp BP Pulse Ox 98.1 F 75 20 122/68 100 12/21/17 22:04 12/21/17 22:04 12/21/17 22:04 12/21/17 22:04 12/21/17 22:04 Intake and Output: 12/21/17 12/22/17 18:59 06:59 Intake Total 750 Balance 750 - Medications Medications: Current Medications Albuterol/Ipratropium (Duoneb 3 Mg/0.5 Mg (3 Ml) Ud) 3 ml INH RQ6 PRN PRN Reason: Cough Last Admin: 12/21/17 19:30 Dose: 3 ml Alprazolam (Xanax) 0.5 mg PO [facility] Last Admin: 12/21/17 21:51 Dose: 0.5 mg Aspirin (Aspirin Chewable) 81 mg PO DAILY [facility] Last Admin: 12/21/17 10:07 Dose: 81 mg Carvedilol (Coreg) 6.25 mg PO Q12 [facility] Last Admin: 12/21/17 21:53 Dose: 6.25 mg Cilostazol (Pletal) 50 mg PO BID [facility] Last Admin: 12/21/17 18:02 Dose: 50 mg Cyclobenzaprine HCl (Flexeril) 5 mg PO TID [facility] Last Admin: 12/21/17 18:02 Dose: 5 mg Enoxaparin Sodium (Lovenox) 40 mg SC DAILY [facility] Last Admin: 12/21/17 09:39 Dose: Not Given Gabapentin (Neurontin) 600 mg PO TID [facility] Last Admin: 12/21/17 18:03 Dose: 600 mg Sodium Chloride (Sodium Chloride 0.9%) 1,000 mls @ 70 mls/hr IV .[id number] [facility] Stop: 12/21/17 23:59 Last Admin: 12/21/17 18:04 Dose: 70 mls/hr Montelukast Sodium (Singulair) 10 mg PO [facility] Last Admin: 12/21/17 21:52 Dose: 10 mg Nitroglycerin (Nitro-Bid 2% Oint) 1 ea TOP Q6 PRN PRN Reason: chest pain Last Admin: 12/19/17 09:15 Dose: 1 ea Oxycodone/Acetaminophen (Percocet 5/325 Mg Tab) 2 tab PO Q6H PRN PRN Reason: Pain, severe (8-10) Stop: 12/23/17 22:16 Last Admin: 12/21/17 20:50 Dose: 2 tab Pantoprazole Sodium (Protonix Ec Tab) 40 mg PO DAILY [facility] Last Admin: 12/21/17 10:08 Dose: 40 mg Ranolazine (Ranexa) 500 mg PO BID [facility] Last Admin: 12/21/17 18:02 Dose: 500 mg Rosuvastatin Calcium (Crestor) 10 mg PO HS [facility] Last Admin: 12/21/17 21:51 Dose: 10 mg Fluticasone/Salmeterol (Advair Diskus 250/50) 1 puff INH RQ12 [facility] Last Admin: 12/21/17 19:30 Dose: 1 puff - Labs Labs: 12/17/17 18:52 12/17/17 18:52 PT 11.1 SECONDS (9.7-12.2) 12/17/17 18:52 INR 1.0 12/17/17 18:52 APTT 35 SECONDS (21-34) H 12/17/17 18:52
[2017-12-22] MEDS: Oxycodone/Acetaminophen 5/325 mg Tab PO PRN ×3 (05:25→21:33)
[2017-12-22] MEDS: Fluticasone-Salmeterol 250-50mcg Diskus INH SCH ×2 (07:22→19:55)
[2017-12-22] MEDS: Albuterol-Ipratrop 3 mg / 0.5 (3 ml) UD INH PRN ×3 (07:23→19:55)
[2017-12-22] MEDS: Cilostazol 50 mg Tab UD PO SCH ×2 (09:11→18:38)
[2017-12-22] MEDS: Ranolazine 500 mg Extended Release Tablets PO SCH ×2 (09:11→18:38)
[2017-12-22] MEDS: Pantoprazole 40 mg EC Tab PO SCH (09:11)
[2017-12-22] MEDS: Enoxaparin 40 mg Syringe SC SCH (09:13)
--- NOTE | 2017-12-22 13:40 | VASCLAB ---
STUDY DESCRIPTION: HISTORY: Claudication, PAD PRIORS: None. TECHNIQUE: Pulse volume recording waveforms and segmental pressures of bilateral lower extremities at multiple levels were obtained. Ankle Brachial Indices (ABIs) were calculated. Report prepared by DOMINGO Schroeder, RVT RIGHT LOWER EXTREMITY: * Brachial artery: Pressure - 120 mmHg. * High thigh: Pressure - mmHg: Ratio - : PVR waveform - * Low thigh: Pressure - 128 mmHg: Ratio - 1.07 PVR waveform: Pulsatile * Calf: Pressure - 149 mmHg: Ratio - 1.24 PVR waveform: Pulsatile * Posterior tibial Artery: Pressure - 145 mmHg: Ratio - 1.21 PVR waveform: Pulsatile * Dorsalis pedis Artery: Pressure - 136 mmHg: Ratio - 1.13 PVR waveform: Pulsatile * Great toe: Pressure - 105 mmHg: Ratio - 0.88 PVR waveform: Pulsatile Ankle brachial index (RODOLFO): 1.21 LEFT LOWER EXTREMITY: * Brachial artery: Pressure - 104 mmHg. * High thigh: Pressure - mmHg: Ratio - : PVR waveform - * Low thigh: Pressure - 125 mmHg: Ratio - 1.04 PVR waveform: Pulsatile * Calf: Pressure - 156 mmHg: Ratio - 1.30 PVR waveform: Pulsatile * Posterior tibial Artery: Pressure - 154 mmHg: Ratio - 1.28 PVR waveform: Pulsatile * Dorsalis pedis Artery: Pressure - 147 mmHg: Ratio - 1.23 PVR waveform: Pulsatile * Great toe: Pressure - 104 mmHg: Ratio - 0.87 PVR waveform: Pulsatile Ankle brachial index (RODOLFO): 1.28 OTHER FINDINGS: Right: Left: IMPRESSION: Right: There was no evidence of hemodynamically significant arterial insufficiency in the right lower extremity. Left: The ankle pressure index of the left lower extremity is non-diagnostic due to possible arterial wall calcifications.
[2017-12-22] MEDS ORDERED: Lidocaine 2% Inj (20ml) ONE (17:14)
[2017-12-22] MEDS ORDERED: Midazolam 2 MG/2 ML VIAL ONE (17:15)
--- NOTE | 2017-12-22 17:51 | CP.PCM.PN ---
Subjective - Date & Time of Evaluation Date of Evaluation: 12/22/17 Time of Evaluation: 17:50 - Subjective Subjective: Patient s/p cath Non Obstructive coronaries Normal EF Medical management OOB to amulate after 9.30 pm tonight D/c Home in am Objective - Vital Signs/Intake and Output Vital Signs (last 24 hours): Temp Pulse Resp BP Pulse Ox 97.9 F 70 20 163/61 H 99 12/22/17 08:28 12/22/17 11:39 12/22/17 08:28 12/22/17 08:28 12/22/17 08:28 Intake and Output: 12/22/17 12/22/17 06:59 18:59 Intake Total 910 950 Balance 910 950 - Medications Medications: Current Medications Albuterol/Ipratropium (Duoneb 3 Mg/0.5 Mg (3 Ml) Ud) 3 ml INH RQ6 PRN PRN Reason: Cough Last Admin: 12/22/17 14:40 Dose: 3 ml Alprazolam (Xanax) 0.5 mg PO HS [facility] Last Admin: 12/21/17 21:51 Dose: 0.5 mg Aspirin (Aspirin Chewable) 81 mg PO DAILY [facility] Last Admin: 12/22/17 09:11 Dose: 81 mg Carvedilol (Coreg) 6.25 mg PO Q12 [facility] Last Admin: 12/22/17 09:11 Dose: 6.25 mg Cilostazol (Pletal) 50 mg PO BID [facility] Last Admin: 12/22/17 09:11 Dose: 50 mg Cyclobenzaprine HCl (Flexeril) 5 mg PO TID [facility] Last Admin: 12/22/17 13:04 Dose: 5 mg Enoxaparin Sodium (Lovenox) 40 mg SC DAILY [facility] Last Admin: 12/22/17 09:13 Dose: Not Given Gabapentin (Neurontin) 600 mg PO TID [facility] Last Admin: 12/22/17 13:04 Dose: 600 mg Montelukast Sodium (Singulair) 10 mg PO HS [facility] Last Admin: 12/21/17 21:52 Dose: 10 mg Nitroglycerin (Nitro-Bid 2% Oint) 1 ea TOP Q6 PRN PRN Reason: chest pain Last Admin: 12/19/17 09:15 Dose: 1 ea Oxycodone/Acetaminophen (Percocet 5/325 Mg Tab) 2 tab PO Q6H PRN PRN Reason: Pain, severe (8-10) Stop: 12/23/17 22:16 Last Admin: 12/22/17 13:04 Dose: 2 tab Pantoprazole Sodium (Protonix Ec Tab) 40 mg PO DAILY [facility] Last Admin: 12/22/17 09:11 Dose: 40 mg Ranolazine (Ranexa) 500 mg PO BID [facility] Last Admin: 12/22/17 09:11 Dose: 500 mg Rosuvastatin Calcium (Crestor) 10 mg PO HS [facility] Last Admin: 12/21/17 21:51 Dose: 10 mg Fluticasone/Salmeterol (Advair Diskus 250/50) 1 puff INH RQ12 [facility] Last Admin: 12/22/17 07:22 Dose: 1 puff - Labs Labs: 12/17/17 18:52 12/17/17 18:52 PT 11.1 SECONDS (9.7-12.2) 12/17/17 18:52 INR 1.0 12/17/17 18:52 APTT 35 SECONDS (21-34) H 12/17/17 18:52
[2017-12-22] MEDS: Sodium Chloride 0.9% 500 ML IV SCH (18:05)
--- NOTE | 2017-12-22 21:03 | CP.PCM.PN ---
Subjective - Date & Time of Evaluation Date of Evaluation: 12/22/17 Time of Evaluation: 21:01 - Subjective Subjective: Patient underwent angiogram today. Nonobstructive coronary disease noted, ejection fraction is normal. Patient per cardiology cleared for discharge tomorrow. Patient is currently complaining of increasing constipation. On multiple pain medications. Some shortness of breath and exertional dyspnea noted. Vital signs reviewed No neck vein distention noted Chest good air entry bilaterally, no wheezing or rales noted CVS regular heart sound, no murmur noted Abdomen soft, nontender. 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 Nonspecific. Clinically stable. Treatment for constipation. Objective - Vital Signs/Intake and Output Vital Signs (last 24 hours): Temp Pulse Resp BP Pulse Ox 97.5 F L 65 18 137/80 100 12/22/17 18:37 12/22/17 18:37 12/22/17 18:37 12/22/17 18:37 12/22/17 18:37 Intake and Output: 12/22/17 12/23/17 18:59 06:59 Intake Total 950 Balance 950 - Medications Medications: Current Medications Albuterol/Ipratropium (Duoneb 3 Mg/0.5 Mg (3 Ml) Ud) 3 ml INH RQ6 PRN PRN Reason: Cough Last Admin: 12/22/17 19:55 Dose: 3 ml Alprazolam (Xanax) 0.5 mg PO HS [facility] Last Admin: 12/21/17 21:51 Dose: 0.5 mg Aspirin (Aspirin Chewable) 81 mg PO DAILY [facility] Last Admin: 12/22/17 09:11 Dose: 81 mg Carvedilol (Coreg) 6.25 mg PO Q12 [facility] Last Admin: 12/22/17 09:11 Dose: 6.25 mg Cilostazol (Pletal) 50 mg PO BID [facility] Last Admin: 12/22/17 18:38 Dose: 50 mg Cyclobenzaprine HCl (Flexeril) 5 mg PO TID [facility] Last Admin: 12/22/17 18:38 Dose: 5 mg Enoxaparin Sodium (Lovenox) 40 mg SC DAILY [facility] Last Admin: 12/22/17 09:13 Dose: Not Given Gabapentin (Neurontin) 600 mg PO TID [facility] Last Admin: 12/22/17 18:38 Dose: 600 mg Sodium Chloride (Sodium Chloride 0.9%) 500 mls @ 70 mls/hr IV .Q7H9M [facility] Stop: 12/23/17 07:30 Montelukast Sodium (Singulair) 10 mg PO HS [facility] Last Admin: 12/21/17 21:52 Dose: 10 mg Oxycodone/Acetaminophen (Percocet 5/325 Mg Tab) 2 tab PO Q6H PRN PRN Reason: Pain, severe (8-10) Stop: 12/23/17 22:16 Last Admin: 12/22/17 13:04 Dose: 2 tab Pantoprazole Sodium (Protonix Ec Tab) 40 mg PO DAILY [facility] Last Admin: 12/22/17 09:11 Dose: 40 mg Ranolazine (Ranexa) 500 mg PO BID [facility] Last Admin: 12/22/17 18:38 Dose: 500 mg Rosuvastatin Calcium (Crestor) 10 mg PO HS [facility] Last Admin: 12/21/17 21:51 Dose: 10 mg Fluticasone/Salmeterol (Advair Diskus 250/50) 1 puff INH RQ12 [facility] Last Admin: 12/22/17 19:55 Dose: 1 puff - Labs Labs: 12/17/17 18:52 12/17/17 18:52 PT 11.1 SECONDS (9.7-12.2) 12/17/17 18:52 INR 1.0 12/17/17 18:52 APTT 35 SECONDS (21-34) H 12/17/17 18:52
[2017-12-22] MEDS ORDERED: POLYETHYLENE GLYCOL 3350 17 GM/Dose PACKET PO SCH (22:00)
[2017-12-23] MEDS: Sodium Chloride 0.9% 500 ML IV SCH (01:19)
[2017-12-23 01:35] VITALS: RESP 20
[2017-12-23] MEDS: Oxycodone/Acetaminophen 5/325 mg Tab PO PRN ×2 (05:26→13:17)
[2017-12-23] MEDS: Fluticasone-Salmeterol 250-50mcg Diskus INH SCH (07:23)
[2017-12-23] MEDS: Albuterol-Ipratrop 3 mg / 0.5 (3 ml) UD INH PRN ×2 (07:23→13:08)
[2017-12-23] MEDS: Pantoprazole 40 mg EC Tab PO SCH (09:15)
[2017-12-23] MEDS: Cilostazol 50 mg Tab UD PO SCH ×2 (09:15→17:29)
[2017-12-23] MEDS: Ranolazine 500 mg Extended Release Tablets PO SCH ×2 (09:15→17:29)
[2017-12-23] MEDS: Enoxaparin 40 mg Syringe SC SCH (09:15)
[2017-12-23 16:12] VITALS: BP 108/64; PULSE 74; TEMP 98.3; O2SAT 96
--- NOTE | 2017-12-23 17:23 | CP.PCM.PN ---
Subjective - Date & Time of Evaluation Date of Evaluation: 12/23/17 Time of Evaluation: 15:00 Objective - Vital Signs/Intake and Output Vital Signs (last 24 hours): Temp Pulse Resp BP Pulse Ox 98.3 F 74 20 108/64 96 12/23/17 15:11 12/23/17 15:11 12/23/17 15:11 12/23/17 15:11 12/23/17 15:11 Intake and Output: 12/23/17 12/23/17 06:59 18:59 Intake Total 720 Balance 720 - Medications Medications: Current Medications Albuterol/Ipratropium (Duoneb 3 Mg/0.5 Mg (3 Ml) Ud) 3 ml INH RQ6 PRN PRN Reason: Cough Last Admin: 12/23/17 13:08 Dose: 3 ml Alprazolam (Xanax) 0.5 mg PO HS [facility] Last Admin: 12/22/17 21:32 Dose: 0.5 mg Aspirin (Aspirin Chewable) 81 mg PO DAILY [facility] Last Admin: 12/23/17 09:15 Dose: 81 mg Carvedilol (Coreg) 6.25 mg PO Q12 [facility] Last Admin: 12/23/17 09:15 Dose: 6.25 mg Cilostazol (Pletal) 50 mg PO BID [facility] Last Admin: 12/23/17 09:15 Dose: 50 mg Cyclobenzaprine HCl (Flexeril) 5 mg PO TID [facility] Last Admin: 12/23/17 13:16 Dose: 5 mg Enoxaparin Sodium (Lovenox) 40 mg SC DAILY [facility] Last Admin: 12/23/17 09:15 Dose: 40 mg Gabapentin (Neurontin) 600 mg PO TID [facility] Last Admin: 12/23/17 13:15 Dose: 600 mg Montelukast Sodium (Singulair) 10 mg PO HS [facility] Last Admin: 12/22/17 21:32 Dose: 10 mg Oxycodone/Acetaminophen (Percocet 5/325 Mg Tab) 2 tab PO Q6H PRN PRN Reason: Pain, severe (8-10) Stop: 12/23/17 22:16 Last Admin: 12/23/17 13:17 Dose: 2 tab Pantoprazole Sodium (Protonix Ec Tab) 40 mg PO DAILY [facility] Last Admin: 12/23/17 09:15 Dose: 40 mg Polyethylene Glycol (Miralax) 17 gm PO HS [facility] Last Admin: 12/22/17 21:34 Dose: 17 gm Ranolazine (Ranexa) 500 mg PO BID [facility] Last Admin: 12/23/17 09:15 Dose: 500 mg Rosuvastatin Calcium (Crestor) 10 mg PO HS [facility] Last Admin: 12/22/17 21:32 Dose: 10 mg Fluticasone/Salmeterol (Advair Diskus 250/50) 1 puff INH RQ12 [facility] Last Admin: 12/23/17 07:23 Dose: 1 puff - Labs Labs: 12/17/17 18:52 12/17/17 18:52 PT 11.1 SECONDS (9.7-12.2) 12/17/17 18:52 INR 1.0 12/17/17 18:52 APTT 35 SECONDS (21-34) H 12/17/17 18:52
--- NOTE | 2017-12-23 20:49 | CP.PCM.DIS ---
Provider - Provider Date of Admission: 12/17/17 20:00 Attending physician: Carol Wong MD Time Spent in preparation of Discharge (in minutes): 45 Hospital Course - Lab Results Lab Results: Most Recent Lab Values WBC 8.9 K/uL (4.8-10.8) 12/17/17 18:52 RBC 4.39 Mil/uL (3.80-5.20) 12/17/17 18:52 Hgb 13.5 g/dL (11.0-16.0) 12/17/17 18:52 Hct 39.2 % (34.0-47.0) 12/17/17 18:52 MCV 89.4 fL (81.0-99.0) D 12/17/17 18:52 MCH 30.8 pg (27.0-31.0) 12/17/17 18:52 MCHC 34.4 g/dL (33.0-37.0) 12/17/17 18:52 RDW 12.6 % (11.5-14.5) 12/17/17 18:52 Plt Count 267 K/uL (130-400) 12/17/17 18:52 MPV 8.7 fL (7.2-11.7) 12/17/17 18:52 Neut % (Auto) 57.9 % (50.0-75.0) 12/17/17 18:52 Lymph % (Auto) 35.7 % (20.0-40.0) 12/17/17 18:52 [place] % (Auto) 5.1 % (0.0-10.0) 12/17/17 18:52 Eos % (Auto) 0.7 % (0.0-4.0) 12/17/17 18:52 Baso % (Auto) 0.6 % (0.0-2.0) 12/17/17 18:52 Neut # (Auto) 5.1 K/uL (1.8-7.0) 12/17/17 18:52 Lymph # (Auto) 3.2 K/uL (1.0-4.3) 12/17/17 18:52 [place] # (Auto) 0.5 K/uL (0.0-0.8) 12/17/17 18:52 Eos # (Auto) 0.1 K/uL (0.0-0.7) 12/17/17 18:52 Baso # (Auto) 0.1 K/uL (0.0-0.2) 12/17/17 18:52 PT 11.1 SECONDS (9.7-12.2) 12/17/17 18:52 INR 1.0 12/17/17 18:52 APTT 35 SECONDS (21-34) H 12/17/17 18:52 Sodium 139 mmol/L (132-148) 12/17/17 18:52 Potassium 4.1 mmol/L (3.6-5.2) 12/17/17 18:52 Chloride 98 mmol/L (98-107) 12/17/17 18:52 Carbon Dioxide 28 mmol/L (22-30) 12/17/17 18:52 Anion Gap 16 (10-20) 12/17/17 18:52 BUN 18 mg/dL (7-17) H 12/17/17 18:52 Creatinine 1.1 mg/dL (0.7-1.2) 12/17/17 18:52 Est GFR ( Amer) > 60 12/17/17 18:52 Est GFR (Non-Af Amer) 51 12/17/17 18:52 Random Glucose 111 mg/dL (65-105) H 12/17/17 18:52 Calcium 9.9 mg/dl (8.6-10.4) 12/17/17 18:52 Total Bilirubin 0.3 mg/dL (0.2-1.3) 12/17/17 18:52 AST 28 U/L (14-36) 12/17/17 18:52 ALT 24 U/L (9-52) 12/17/17 18:52 Alkaline Phosphatase 101 U/L (38-126) 12/17/17 18:52 Total Creatine Kinase 115 U/L (30-135) 12/18/17 04:24 CK-MB (Mass) 0.65 ng/mL (0.0-3.38) 12/18/17 04:24 Troponin I < 0.0120 ng/mL (0.00-0.120) 12/18/17 04:24 Total Protein 7.6 g/dL (6.3-8.3) 12/17/17 18:52 Albumin 4.3 g/dL (3.5-5.0) 12/17/17 18:52 Globulin 3.3 gm/dL (2.2-3.9) 12/17/17 18:52 Albumin/Globulin Ratio 1.3 (1.0-2.1) 12/17/17 18:52 Urine Color Yellow (YELLOW) 12/17/17 18:52 Urine Clarity Clear (Clear) 12/17/17 18:52 Urine pH 6.0 (5.0-8.0) 12/17/17 18:52 Ur Specific [place] 1.017 (1.003-1.030) 12/17/17 18:52 Urine Protein Negative mg/dL (NEGATIVE) 12/17/17 18:52 Urine Glucose (UA) Normal mg/dL (Normal) 12/17/17 18:52 Urine Ketones Negative mg/dL (NEGATIVE) 12/17/17 18:52 Urine Blood 1+ (NEGATIVE) H 12/17/17 18:52 Urine Nitrate Negative (NEGATIVE) 12/17/17 18:52 Urine Bilirubin Negative (NEGATIVE) 12/17/17 18:52 Urine Urobilinogen 4.0 mg/dL (0.2-1.0) H 12/17/17 18:52 Ur Leukocyte Esterase Neg [place]/uL (Negative) 12/17/17 18:52 Urine WBC (Auto) < 1 /hpf (0-5) 12/17/17 18:52 Urine RBC (Auto) 8 /hpf (0-3) H 12/17/17 18:52 Ur Squamous Epith Cells < 1 /hpf (0-5) 12/17/17 18:52 Urine Bacteria Rare (<OCC) 12/17/17 18:52 - Hospital Course Hospital Course: Chief contents: Chest pain History of present illness: 57-year-old female with history of hypertension, COPD, cervical spondylosis, lumbar disc disease, status post surgical intervention for both the cervical, lumbar disc. Patient recently had a thyroidectomy. Currently on multiple chronic pain medication because of the ongoing pain. Patient quit smoking couple of years ago, she also underwent a coronary angiogram, showing evidence of nonobstructive coronaries 2 years ago. Patient came to the office today, complaining of retrosternal chest pain, radiating to the left side of the chest, and also left arm associated with numbness. The pain is also radiating to the left side of the jaw. Patient started noticing pain yesterday, slowly got worse, and the pain increasingly worsening recently. She also has some palpitation, and sweating. Chest pain associated with no nausea or dizziness. She denies any diarrhea, but constipation noted. Past medical history: Hypertension, osteoarthritis, osteoporosis, COPD, cervical, lumbar disc disease , status post surgery, thyroidectomy. Allergies: No known drug allergies Personal history: Patient used to smoke in the past many years ago. She quit 2 years ago. No alcohol history. Surgical history: Cervical spinal surgery, lumbar spinal surgery, cholecystectomy, partial thyroidectomy. Family history: Mother had hypertension and diabetes coronary artery disease and coronary artery bypass grafting Siblings sister had chronic kidney disease and brother of AIDS Review of system: Patient having mild headache, denies any sinus symptoms. Combining of cough, difficulty in swallowing sometimes. Patient is currently having chest pain, radiating to the left upper extremity. Constipation noted Chronic pain medications Vital signs reviewed No neck vein distention noted Chest good air entry bilaterally, no wheezing or rales noted CVS regular heart sound, no murmur noted Abdomen soft, nontender. 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 EKG, chest x-ray pending Assessment and recommendation: 57-year-old female with multiple medical history including COPD, hypertension, cervical spinal disease, and a lumbar spinal disease, hypothyroidism, thyroid disease, status post a thyroidectomy. Patient admitted now with acute chest pain, and associated with radiating to the left upper extremities. Patient also has a nonobstructive coronary disease, may need further workup. Chest pain cardiac likely Will get a cardiology evaluation. Close monitoring. Bronchodilators. DVT and GI prophylaxis. And will follow the patient Course in the Hospital: Initial cardiac enzymes are negative. Cardiology evaluation was called. Patient underwent angiogram, showing evidence of normal ejection fraction, nonobstructive coronary disease, no worsening noted compared to 2014. Patient is currently clinically stable. Patient is having increasing constipation. She can be discharged home today, she will follow-up as an outpatient. Medications to be continued including aspirin, antiplatelets, and anticholesterol meds and ranexa Discharge Plan - Discharge Medications Prescriptions: Fluticasone/Salmeterol 250/50 [Advair Diskus 250/50] 1 puff INH RQ12 #1 puff Aspirin [Aspirin Chewable] 81 mg PO DAILY #30 chew Carvedilol [Coreg] 6.25 mg PO Q12 #60 tab Cyclobenzaprine [Cyclobenzaprine HCl] 10 mg PO TID #21 tab Cilostazol [Pletal] 50 mg PO BID #30 tab Ranolazine [Ranexa] 500 mg PO BID #30 ter - Follow Up Plan Condition: FAIR Disposition: HOME/ ROUTINE Instructions: Ranolazine, Heart Healthy Diet, Chest Pain (DC), Coronary Heart Disease (DC), Aspirin, Carvedilol, Cilostazol, Cyclobenzaprine, Fluticasone and Salmeterol Additional Instructions: Please f/u with Dr. Wong office 1in 1 week Please continue medication as per med. rec. PLEASE PICK YOUR MEDICATION FROM [facility] Referrals: Carol Wong MD [Staff Provider] -
--- NOTE | 2017-12-28 07:11 | CARDCATH ---
PROCEDURE DATE: 12/22/2017 PROCEDURES: 1. Left heart catheterization. 2. Coronary angiogram. 3. Radiological supervision and radiological interpretation of the left heart cardiac catheterization coronary angiogram. CLINICAL INDICATIONS: 1. Unstable angina. 2. Hypertension. 3. Hyperlipidemia. 4. Coronary artery disease. REFERRING PHYSICIAN: Dr. Carol Wong. PERFORMING PHYSICIAN: Dr. Quinn Moreno. DESCRIPTION OF PROCEDURE: After informed consent, the patient was prepped and draped in the usual sterile fashion. A 2% lidocaine was given in the right hand for local anesthesia. Using micropuncture technique, 6-German sheath was introduced into right common femoral artery. A 6-German JL4 diagnostic catheter engaged into left main coronary artery. Contrast injected and left coronary angiogram was performed. A 6-German JR4 diagnostic catheter engaged into the right coronary artery. Contrast injected and right coronary angiogram was performed. The JR4 6 catheter crossed into the left ventricle across the aortic valve. LV end-diastolic pressure measured. Contrast injected and LV angiography was performed. The catheter was pulled back across the aortic valve into the aorta. Gradient across the aortic valve was measured. The patient tolerated the procedure well. FINDINGS: 1. Left main coronary artery is patent. 2. Proximal and mid LAD is patent, distal LAD has a diffuse 50% narrowing. Diagonal branches are patent. 3. Left circumflex and obtuse marginal branches are patent. 4. Right coronary artery is dominant. Mid right coronary artery has a 50% nonobstructive stenosis. 5. LV ejection fraction is approximately 60%. No wall motion abnormalities noted. EDP is 18. No gradient across the aortic valve. IMPRESSION: 1. Nonobstructive coronaries. 2. Normal LV systolic function.. PLAN: Recommend medical management. Quinn Moreno MD
== END 2017-12-23 18:27 | disposition home or self-care (01) | DRG 287 ==
LOC: C.ER 16:49 → C.9E 20:00 → C.6T 12-18 14:44
PROVIDERS: ADMIT Internal Medicine; ATTEND Internal Medicine
PROC: B2111ZZ Fluoroscopy of Multiple Coronary Arteries using Low Osmolar Contrast (ICD-10-PCS; 2017-12-22)
PROC: 4A023N7 Measurement of Cardiac Sampling and Pressure, Left Heart, Percutaneous Approach (ICD-10-PCS; principal; 2017-12-22 15:00)
DX: I25.110 Atherosclerotic heart disease of native coronary artery with unstable angina pectoris (principal); G62.9 Polyneuropathy, unspecified; J43.9 Emphysema, unspecified; E78.5 Hyperlipidemia, unspecified; I10 Essential (primary) hypertension; G89.29 Other chronic pain; M54.5 Low back pain; Z86.010 Personal history of colon polyps; M81.0 Age-related osteoporosis without current pathological fracture; E78.00 Pure hypercholesterolemia, unspecified; E89.0 Postprocedural hypothyroidism; M19.90 Unspecified osteoarthritis, unspecified site; F32.9 Major depressive disorder, single episode, unspecified; D64.9 Anemia, unspecified; Z87.891 Personal history of nicotine dependence; K59.00 Constipation, unspecified; Z82.49 Family history of ischemic heart disease and other diseases of the circulatory system; M54.10 Radiculopathy, site unspecified; Z88.8 Allergy status to other drugs, medicaments and biological substances

== ENCOUNTER 2018-07-15 15:23 | Observation (INO) | payer MEDICARE, MEDICAID ==
[2018-07-15 15:45] VITALS: BMI 30.1
[2018-07-15] MEDS ORDERED: Sodium Chloride 0.9% 500 ML IV ONE (15:50)
[2018-07-15] MEDS ORDERED: Sodium Chloride 0.9% 1,000 ML ONE (15:57)
--- NOTE | 2018-07-15 16:03 | C.PDOC ---
History Of Present Illness Patient is a 58 y/o F presenting with 2 day history of epigastric pain, vomiting and diarrhea. Reports that she saw her PMD today who sent her to the ED for further evaluation. Denies dysuria, flank pain, vaginal bleeding, chest pain or shortness of breath. Denies hx of abdominal surgeries Time Seen by Provider: 07/15/18 15:49 Chief Complaint (Nursing): Abdominal Pain Past Medical History Vital Signs: Last Vital Signs Temp 98.8 F 07/15/18 15:46 Pulse 63 07/15/18 15:46 Resp 18 07/15/18 15:46 BP 105/68 07/15/18 15:46 Pulse Ox 99 07/15/18 18:41 - Medical History PMH: Anemia, Arthritis, Asthma, CAD, Colonic Polyps, COPD, Depression, Emphysema , Gall Bladder Disease, HTN, Hypercholesterolemia, Hypothyroidism, Osteoporosis , Pancreatitis Denies: Chronic Kidney Disease Surgical History: Back Surgery (cervical), Cholecystectomy (1998) - [facility] Procedures DORSAL & DORSOLUMBAR FUSION OF POSTERIOR COL/TECHNIQUE (04/04/15) ENDOSC POLYPECTOMY OF LG INTEST (01/05/15) ESOPHAGOGASTRODUODENOSCOPY [EGD] W/CLOSED BIOPSY (07/17/14) EXCISION INTERVERT DISC (02/22/14) EXCISION OF DUODENUM, ENDO, DIAGN (03/10/16) EXCISION OF STOMACH, ENDO, DIAGN (03/10/16) FLUOROSCOPY OF BILE DUCTS USING OTHER CONTRAST (03/10/16) FLUOROSCOPY OF MULT COR ART USING L OSM CONTRAST (12/17/17) FUSION/REFUS OF 2-3 VERTEBRAE (04/04/15) GAIT TRAINING/FUNCTIONAL AMBULATION TREATMENT (11/19/15) HOME MANAGEMENT TREATMENT (11/19/15) INSERTION OF INFUSION DEV INTO SUP VENA CAVA, PERC APPROACH (03/10/16) INSERTION OF INTERBODY SPINAL FUSION DEVICE (02/22/14) INSPECTION OF HEPATOBILIARY DUCT, ENDO (03/10/16) LEFT HEART CARDIAC CATH (02/14/14) LT HEART ANGIOCARDIOGRAM (02/14/14) MEASURE OF CARDIAC SAMPL & PRESSURE, L HEART, PERC APPROACH (12/17/17) NEBULIZER THERAPY (04/06/15) OCCUPATIONAL THERAPY (04/06/15) OTH CERVICAL FUSION OF ANTERIOR COLUMN, ANTERIOR TECHNIQUE (02/22/14) PHYSICAL THERAPY NEC (04/06/15) RECREATIONAL THERAPY (04/06/15) RELEASE LUMBAR VERTEBRA, OPEN APPROACH (11/14/15) REMOVAL OF INFUSION DEV FROM GREAT VESSEL, ROPE LAYING MACHINE OPERATOR APPROACH (03/10/16) ULTRASONOGRAPHY OF SUPERIOR VENA CAVA, GUIDANCE (03/10/16) Family History: States: Unknown Family Hx - Social History Hx Alcohol Use: No Hx Substance Use: No - Immunization History Hx Tetanus Toxoid Vaccination: No Hx Influenza Vaccination: No Hx Pneumococcal Vaccination: No Review Of Systems Constitutional: Negative for: Fever, Chills Cardiovascular: Negative for: Chest Pain, Palpitations, Orthopnea, Edema, Light Headedness Respiratory: Negative for: Cough, Shortness of Breath, SOB with Excertion, Wheezing Gastrointestinal: Positive for: Nausea, Vomiting, Abdominal Pain, Diarrhea. Negative for: Constipation Genitourinary: Negative for: Dysuria, Frequency, Hematuria, Vaginal Discharge, Vaginal Bleeding, Pelvic Pain Musculoskeletal: Negative for: Neck Pain Skin: Negative for: Rash Psych: Negative for: Anxiety, Depression Physical Exam - Physical Exam Appears: Well, Non-toxic, No Acute Distress Skin: Normal Color, Warm, Dry Head: Atraumatic, Normacephalic Eye(s): bilateral: Normal Inspection, PERRL, EOMI Neck: Normal ROM Chest: Symmetrical Cardiovascular: Rhythm Regular Respiratory: Normal Breath Sounds, No Rales, No Rhonchi, No Wheezing Gastrointestinal/Abdominal: Soft, Tenderness (RLQ, epigastric) Back: Normal Inspection, No CVA Tenderness Extremity: Normal ROM Neurological/Psych: Oriented x3, Normal Cranial Nerves, Normal Motor, Normal Sensation Gait: Steady ED Course And Treatment - Laboratory Results Result Diagrams: 07/15/18 16:05 07/15/18 16:05 O2 Sat by Pulse Oximetry: 99 Medical Decision Making Medical Decision Making: EKG shows sinus bradycardia at 57bpm with non-specific st changes. Cath from 12/27/17 shows nonobstructive CAD 6:49PM CT shows Diverticulosis without CT evidence of acute diverticulitis. Cholecystectomy. Labs reviewed and grossly normal. Patient reporting intractable pain and vomiting. Dr. Thompson accepts. Disposition - Disposition Disposition: HOSPITALIZED Disposition Time: 18:40 Condition: FAIR Forms: [facility] ([place]) - Clinical Impression Clinical Impression: Gastroenteritis, Hematuria
[2018-07-15 16:12] LABS: BASO % 0.2 % (0.0-2.0); EOS % 0.1 % (0.0-4.0); HEMOGLOBIN 13.7 g/dL (11.0-16.0); LYMPH # 1.5 K/uL (1.0-4.3); LYMPH % 28.5 % (20.0-40.0); MEAN CELL VOLUME 90.4 fL (81.0-99.0); MEAN CORPUSCULAR HEMOGLOBIN 30.2 pg (27.0-31.0); MEAN CORPUSCULAR HGB CONC 33.5 g/dL (33.0-37.0); MEAN PLATELET VOLUME 8.7 fL (7.2-11.7); MONO # 0.3 K/uL (0.0-0.8); MONO % 6.1 % (0.0-10.0); NEUT # 3.5 K/uL (1.8-7.0); NEUT % 65.1 % (50.0-75.0); RBC 4.53 Mil/uL (3.80-5.20); RED CELL DISTRIBUTION WIDTH 12.4 % (11.5-14.5); WHITE BLOOD COUNT 5.4 K/uL (4.8-10.8)
[2018-07-15 16:23] LABS: ALB/GLOB RATIO 1.6 (1.0-2.1); ALBUMIN 4.5 g/dL (3.5-5.0); ALT/SGPT 65 U/L (9-52); AST/SGOT 46 U/L (14-36); BLOOD UREA NITROGEN 18 mg/dL (7-17); GFR NON-AFRICAN AMERICAN > 60; LIPASE 53 U/L (23-300)
[2018-07-15] MEDS ORDERED: Iohexol 300 100 ML IJ ONE (16:33)
[2018-07-15] MEDS ORDERED: Alum-Mag Hydrox-Simethicone Susp (30 mL) PO STA (17:12)
--- NOTE | 2018-07-15 17:21 | CT ---
Date of service: 07/15/2018 PROCEDURE: CT Abdomen and Pelvis with contrast HISTORY: abd pain COMPARISON: CT abdomen and pelvis performed 03/09/16. TECHNIQUE: Contrast dose: 100 mL Omnipaque 350 Radiation dose: Total exam DLP = 506.97 mGy-cm. This CT exam was performed using one or more of the following dose reduction techniques: Automated exposure control, adjustment of the mA and/or kV according to patient size, and/or use of iterative reconstruction technique. FINDINGS: LOWER THORAX: No visible consolidation, pleural effusion, or pneumothorax. LIVER: Unremarkable. GALLBLADDER AND BILE DUCTS: Cholecystectomy. PANCREAS: Unremarkable. SPLEEN: Unremarkable. ADRENALS: Unremarkable. KIDNEYS AND URETERS: The kidneys enhance symmetrically. No hydronephrosis or obstructing calculus identified. VASCULATURE: No aortic aneurysm. BOWEL: Stomach is nondistended. Lack of oral contrast limits evaluation for bowel pathology. Bowel loops appear within normal limits of caliber without evidence of obstruction. Diverticulosis without CT evidence of acute diverticulitis. APPENDIX: The appendix appears within normal limits of caliber. No secondary signs of acute appendicitis. PERITONEUM: No significant free fluid. No definite free air. LYMPH NODES: No bulky adenopathy identified. BLADDER: Unremarkable. REPRODUCTIVE: The uterus is present. BONES: No acute osseous abnormality is detected. OTHER FINDINGS: None. IMPRESSION: Diverticulosis without CT evidence of acute diverticulitis. Cholecystectomy.
[2018-07-15] MEDS ORDERED: Alum-Mag Hydrox-Simethicone Susp (30 mL) ONE (17:30)
[2018-07-15 18:25] LABS: SQUAMOUS EPITHIAL 3 /hpf (0-5); URINE BILIRUBIN NEGATIVE (NEGATIVE); URINE BLOOD 1+ (NEGATIVE); URINE CLARITY Clear (Clear); URINE COLOR Yellow (YELLOW); URINE GLUCOSE (UA) NORMAL (Normal); URINE LEUKOCYTE ESTERASE NEG Leu/uL (Negative); URINE PROTEIN NEGATIVE (NEGATIVE); URINE UROBILINOGEN NORMAL mg/dL (0.2-1.0)
[2018-07-15] MEDS ORDERED: Albuterol-Ipratrop 20 mcg/actuation (4 g) IH PRN (20:46)
[2018-07-15] MEDS ORDERED: Dextrose 5%/0.9% NS 1,000 ML IV ONE (20:49)
--- NOTE | 2018-07-15 20:51 | CP.PCM.HP ---
History of Present Illness - History of Present Illness History of Present Illness: Chief complaint: Abdominal pain, diarrhea History of present illness: 58-year-old female with history of hypertension, COPD, cervical spondylosis, lumbar disc disease, status post surgical intervention for both the cervical, lumbar disc. Patient recently had a thyroidectomy. Currently on multiple chronic pain medication because of the ongoing pain. Patient quit smoking couple of years ago, she also underwent a coronary angio gram, showing evidence of nonobstructive coronaries 2 years ago. Patient was recently hospitalized with the chest pain. Patient was not feeling well. Came to the office. At the time she was having increasing weakness tiredness. fatigue and abdominal pain nausea and vomiting. Not able to eat anything by mouth, hypotension noted, so I advised the patient to go to the emergency room Past medical history: Hypertension, osteoarthritis, osteoporosis, COPD, cervical, lumbar disc disease, status post surgery, thyroidectomy. Allergies: No known drug allergies Personal history: Patient used to smoke in the past many years ago. She quit 2 years ago. No alcohol history. Surgical history: Cervical spinal surgery, lumbar spinal surgery, cholecystectomy, partial thyroidectomy. Family history: Mother had hypertension and diabetes coronary artery disease and coronary artery bypass grafting Siblings sister had chronic kidney disease and brother of AIDS Review of system: Patient now admitted with ongoing abdominal pain. Episodes of nausea on and off noted No chest pain. But poor intake, poor appetite noted. She also had a some weight loss recently. On examination: Vital signs stable. Chest good air entry Regular heart sound noted Abdomen diffuse tenderness present. Bowel movements present. No pedal edema noted [employer] alert awake oriented -3, no functional neurological deficit Patient's labs reviewed in Labs nonspecific CT scan of the abdomen diverticulosis noted Assessment and recommendation: 58-year-old female with multiple medical history including COPD, hypertension, cervical spinal disease, and lumbar spinal disease, hypothyroidism, thyroid disease, status post a thyroidectomy. Patient now admitted with ongoing abdominal pain, Subdural related to acute dehydration and acute diarrhea. Colitis cannot be ruled out. Advised her for inpatient treatment. IV fluid. Nothing by mouth. GI evaluation. DVT GI prophylaxis and will follow the patient Present on Admission - Present on Admission Any Indicators Present on Admission: No History of DVT/PE: No History of Uncontrolled Diabetes: No Urinary Catheter: No Decubitus Ulcer Present: No Past Patient History - Tetanus Immunizations Tetanus Immunization: Unknown - Past Medical History & Family History Past Medical History?: Yes - Past Social History Smoking Status: Former Smoker - CARDIAC Hx Hypercholesterolemia: Yes Hx Hypertension: Yes - PULMONARY Hx Asthma: Yes Hx Chronic Obstructive Pulmonary Disease (COPD): Yes Hx Emphysema: Yes - NEUROLOGICAL Hx Neurological Disorder: Yes HX Cerebrovascular Accident: No Other/Comment: Peripheral Neuropathy, LLE radiculopathy and paresthesia. - HEENT Hx HEENT Problems: No - RENAL Hx Chronic Kidney Disease: No - ENDOCRINE/METABOLIC Hx Hypothyroidism: Yes - HEMATOLOGICAL/ONCOLOGICAL Hx Anemia: Yes - INTEGUMENTARY Hx Dermatological Problems: No - MUSCULOSKELETAL/RHEUMATOLOGICAL Hx Arthritis: Yes Hx Osteoporosis: Yes - GASTROINTESTINAL Hx Gall Bladder Disease: Yes Hx Pancreatitis: Yes - GENITOURINARY/GYNECOLOGICAL Hx Genitourinary Disorders: Yes Hx Urinary Tract Infection: Yes (not at present) - PSYCHIATRIC Hx Depression: Yes Hx Substance Use: No - SURGICAL HISTORY Hx Cholecystectomy: Yes (1998) - ANESTHESIA Hx Anesthesia: Yes Hx Anesthesia Reactions: No Hx Malignant Hyperthermia: No Meds Allergies/Adverse Reactions: Allergies Allergy/AdvReac Type Severity Reaction Status Date / Time No Known Allergies Allergy Verified 09/18/18 19:20 Results - Vital Signs Recent Vital Signs: Last Vital Signs Temp 98.8 F 07/15/18 15:46 Pulse 56 L 07/15/18 19:01 Resp 16 07/15/18 19:01 BP 108/67 07/15/18 19:01 Pulse Ox 97 07/15/18 19:01 - Labs Result Diagrams: 07/15/18 16:05 07/15/18 16:05 Labs: Laboratory Results - last 24 hr 07/15/18 07/15/18 07/15/18 16:05 16:05 18:13 WBC 5.4 RBC 4.53 Hgb 13.7 Hct 40.9 MCV 90.4 MCH 30.2 MCHC 33.5 RDW 12.4 Plt Count 218 MPV 8.7 Neut % (Auto) 65.1 Lymph % (Auto) 28.5 [place] % (Auto) 6.1 Eos % (Auto) 0.1 Baso % (Auto) 0.2 Neut # (Auto) 3.5 Lymph # (Auto) 1.5 [place] # (Auto) 0.3 Eos # (Auto) 0.0 Baso # (Auto) 0.0 Sodium 141 Potassium 4.2 Chloride 103 Carbon Dioxide 26 Anion Gap 16 BUN 18 H Creatinine 0.9 Est GFR ( Amer) > 60 Est GFR (Non-Af Amer) > 60 Random Glucose 112 H Calcium 9.0 Phosphorus 3.0 Magnesium 2.2 Total Bilirubin 0.7 AST 46 H D ALT 65 H D Alkaline Phosphatase 103 Troponin I < 0.0120 Total Protein 7.3 Albumin 4.5 Globulin 2.8 Albumin/Globulin Ratio 1.6 Lipase 53 Urine Color Yellow Urine Clarity Clear Urine pH 6.0 Ur Specific [place] 1.005 Urine Protein Negative Urine Glucose (UA) Normal Urine Ketones Negative Urine Blood 1+ H Urine Nitrate Negative Urine Bilirubin Negative Urine Urobilinogen Normal Ur Leukocyte Esterase Neg Urine WBC (Auto) 1 Urine RBC (Auto) 3 Ur Squamous Epith Cells 3
[2018-07-15 22:03] VITALS: RESP 20
[2018-07-15] MEDS: Oxycodone/Acetaminophen 5/325 mg Tab PO PRN (22:31)
[2018-07-16] MEDS: Oxycodone/Acetaminophen 5/325 mg Tab PO PRN ×3 (06:25→18:49)
[2018-07-16] MEDS ORDERED: Pantoprazole 40 mg EC Tab PO SCH (10:00)
[2018-07-16] MEDS: Cilostazol 50 mg Tab UD PO SCH ×2 (10:01→17:57)
[2018-07-16] MEDS: Ranolazine 500 mg Extended Release Tablets PO SCH ×2 (10:01→17:56)
[2018-07-16] MEDS: Fluticasone-Salmeterol 500-50mcg Diskus INH SCH (11:18)
--- NOTE | 2018-07-16 17:04 | CP.PCM.CON ---
History of Present Illness - History of Present Illness History of Present Illness: CC: abdominal pain HPI: GI consult requested on this 58 yr old woman admitted yesterday for abdominal pain. Patient developed nausea, vomiting, diarrhea, generalized abdominal pain accompanied by chills, malaise, and myalgias after eating at a [employer] restaurant 3 nights ago. her brother developed similar symptoms but to a milder degree and duration. She denies blood in stool. Today patient notes some improvement. Review of Systems - Constitutional Constitutional: As Per HPI - EENT Eyes: absent: Change in Vision - Cardiovascular Cardiovascular: absent: Chest Pain - Respiratory Respiratory: absent: Dyspnea - Gastrointestinal Gastrointestinal: As Per HPI - Integumentary Integumentary: absent: Jaundice - Neurological Neurological: Dizziness - Psychiatric Psychiatric: Anxiety Past Patient History - Tetanus Immunizations Tetanus Immunization: Unknown - Past Medical History & Family History Past Medical History?: Yes - Past Social History Smoking Status: Former Smoker - CARDIAC Hx Hypercholesterolemia: Yes Hx Hypertension: Yes - PULMONARY Hx Asthma: Yes Hx Chronic Obstructive Pulmonary Disease (COPD): Yes Hx Emphysema: Yes - NEUROLOGICAL Hx Neurological Disorder: Yes HX Cerebrovascular Accident: No Other/Comment: Peripheral Neuropathy, LLE radiculopathy and paresthesia. - HEENT Hx HEENT Problems: No - RENAL Hx Chronic Kidney Disease: No - ENDOCRINE/METABOLIC Hx Hypothyroidism: Yes - HEMATOLOGICAL/ONCOLOGICAL Hx Anemia: Yes - INTEGUMENTARY Hx Dermatological Problems: No - MUSCULOSKELETAL/RHEUMATOLOGICAL Hx Arthritis: Yes Hx Osteoporosis: Yes - GASTROINTESTINAL Hx Gall Bladder Disease: Yes Hx Pancreatitis: Yes - GENITOURINARY/GYNECOLOGICAL Hx Genitourinary Disorders: Yes Hx Urinary Tract Infection: Yes (not at present) - PSYCHIATRIC Hx Depression: Yes Hx Substance Use: No - SURGICAL HISTORY Hx Cholecystectomy: Yes (1998) - ANESTHESIA Hx Anesthesia: Yes Hx Anesthesia Reactions: No Hx Malignant Hyperthermia: No Meds Allergies/Adverse Reactions: Allergies Allergy/AdvReac Type Severity Reaction Status Date / Time No Known Allergies Allergy Unverified 07/15/18 15:45 - Medications Medications: Current Medications Albuterol/Ipratropium (Combivent Respimat) 1 puff IH RQ4 PRN PRN Reason: Shortness of Breath Alprazolam (Xanax) 0.[address] [facility] Last Admin: 07/15/18 22:17 Dose: 0.5 mg Aspirin (Aspirin Chewable) 81 mg PO DAILY [facility] Last Admin: 07/16/18 10:02 Dose: 81 mg Carvedilol (Coreg) 6.25 mg PO Q12 [facility] Last Admin: 07/16/18 10:03 Dose: Not Given Cilostazol (Pletal) 50 mg PO BID [facility] Last Admin: 07/16/18 10:01 Dose: 50 mg Cyclobenzaprine HCl (Flexeril) 10 mg PO TID [facility] Last Admin: 07/16/18 13:01 Dose: 10 mg Montelukast Sodium (Singulair) [address] [facility] Last Admin: 07/15/18 22:16 Dose: 10 mg Oxycodone/Acetaminophen (Percocet 5/325 Mg Tab) 1 tab PO Q6 PRN PRN Reason: Pain, moderate (4-7) Last Admin: 07/16/18 12:54 Dose: 1 tab Ranolazine (Ranexa) 500 mg PO BID [facility] Last Admin: 07/16/18 10:01 Dose: 500 mg Rosuvastatin Calcium (Crestor) [address] [facility] Last Admin: 07/15/18 22:16 Dose: 10 mg Fluticasone/Salmeterol (Advair Diskus 500/50) 1 puff INH RQD [facility] Last Admin: 07/16/18 11:18 Dose: Not Given Physical Exam - Constitutional Appears: Well - Head Exam Head Exam: ATRAUMATIC, NORMOCEPHALIC - Eye Exam Eye Exam: absent: Scleral icterus - ENT Exam ENT Exam: Normal Exam - Neck Exam Neck exam: Positive for: Normal Inspection. Negative for: Meningismus - Respiratory Exam Respiratory Exam: NORMAL BREATHING PATTERN - Cardiovascular Exam Cardiovascular Exam: REGULAR RHYTHM - GI/Abdominal Exam GI & Abdominal Exam: Soft, Tenderness. absent: Distended, Guarding, Mass, Organomegaly, Rebound - Rectal Exam Rectal Exam: Deferred - Extremities Exam Extremities exam: Positive for: normal inspection - Back Exam Back exam: NORMAL INSPECTION - Neurological Exam Neurological exam: Alert, Oriented x3 - Psychiatric Exam Psychiatric exam: Normal Mood - Skin Skin Exam: Normal Color Results - Vital Signs Recent Vital Signs: Last Vital Signs Temp 98.6 F 07/16/18 15:00 Pulse 56 L 07/16/18 15:00 Resp 20 07/16/18 15:00 BP 91/55 L 07/16/18 15:00 Pulse Ox 96 09/21/18 15:00 - Labs Result Diagrams: 07/15/18 16:05 07/15/18 16:05 Labs: Laboratory Results - last 24 hr 07/15/18 18:13 Urine Color Yellow Urine Clarity Clear Urine pH 6.0 Ur Specific [place] 1.005 Urine Protein Negative Urine Glucose (UA) Normal Urine Ketones Negative Urine Blood 1+ H Urine Nitrate Negative Urine Bilirubin Negative Urine Urobilinogen Normal Ur Leukocyte Esterase Neg Urine WBC (Auto) 1 Urine RBC (Auto) 3 Ur Squamous Epith Cells 3 Assessment & Plan (1) Gastroenteritis Assessment and Plan: Acute gastroenteritis, clinically improving Rec: Hydration, supportive care. Will monitor Status: Acute - Date & Time Date: 07/16/18 Time: 17:06
[2018-07-17] MEDS: Oxycodone/Acetaminophen 5/325 mg Tab PO PRN ×3 (01:15→14:05)
[2018-07-17] MEDS: Fluticasone-Salmeterol 500-50mcg Diskus INH SCH (07:50)
[2018-07-17 08:55] VITALS: PULSE 60
[2018-07-17] MEDS: Cilostazol 50 mg Tab UD PO SCH (09:15)
[2018-07-17] MEDS: Ranolazine 500 mg Extended Release Tablets PO SCH (09:15)
--- NOTE | 2018-07-17 11:30 | CP.PCM.PN ---
Subjective - Date & Time of Evaluation Date of Evaluation: 07/17/18 Time of Evaluation: 11:27 - Subjective Subjective: COVERING DR LOREDO/JAY No pain, diarrhea, nausea or vomiting Tolerating a solid diet Objective - Vital Signs/Intake and Output Vital Signs (last 24 hours): Temp Pulse Resp BP Pulse Ox 98.5 F 60 20 109/62 98 07/17/18 08:54 07/17/18 08:54 07/17/18 08:54 07/17/18 08:54 07/17/18 08:54 Intake and Output: 07/17/18 07/17/18 06:59 18:59 Intake Total 1700 Output Total 500 Balance 1200 - Medications Medications: Current Medications Albuterol/Ipratropium (Combivent Respimat) 1 puff IH RQ4 PRN PRN Reason: Shortness of Breath Alprazolam (Xanax) 0.5 mg PO [facility] Last Admin: 07/16/18 23:40 Dose: Not Given Aspirin (Aspirin Chewable) 81 mg PO DAILY [facility] Last Admin: 07/17/18 09:15 Dose: 81 mg Carvedilol (Coreg) 6.25 mg PO Q12 [facility] Last Admin: 07/17/18 09:15 Dose: 6.25 mg Cilostazol (Pletal) 50 mg PO BID [facility] Last Admin: 07/17/18 09:15 Dose: 50 mg Cyclobenzaprine HCl (Flexeril) 10 mg PO TID [facility] Last Admin: 07/17/18 09:16 Dose: 10 mg Montelukast Sodium (Singulair) 10 mg PO [facility] Last Admin: 07/16/18 21:49 Dose: 10 mg Oxycodone/Acetaminophen (Percocet 5/325 Mg Tab) 1 tab PO Q6 PRN PRN Reason: Pain, moderate (4-7) Last Admin: 07/17/18 07:56 Dose: 1 tab Ranolazine (Ranexa) 500 mg PO BID [facility] Last Admin: 07/17/18 09:15 Dose: 500 mg Rosuvastatin Calcium (Crestor) 10 mg PO [facility] Last Admin: 07/16/18 21:49 Dose: 10 mg Fluticasone/Salmeterol (Advair Diskus 500/50) 1 puff INH RQD [facility] Last Admin: 07/17/18 07:50 Dose: Not Given - Labs Labs: 07/15/18 16:05 07/15/18 16:05 - Constitutional Appears: No Acute Distress - Head Exam Head Exam: ATRAUMATIC, NORMOCEPHALIC - Eye Exam Eye Exam: EOMI, PERRL - Respiratory Exam Respiratory Exam: NORMAL BREATHING PATTERN - Cardiovascular Exam Cardiovascular Exam: REGULAR RHYTHM, +S1 - GI/Abdominal Exam GI & Abdominal Exam: Soft, Normal Bowel Sounds. absent: Tenderness Assessment and Plan (1) Acute infective gastroenteritis Assessment & Plan: Clinically stable and tolerating diet. Discharge planning and out patient follow up with Dr Loredo/Jay as needed. Status: Acute (2) Lower abdominal pain Assessment & Plan: as above. Pain has resolved. Status: Acute
--- NOTE | 2018-07-17 14:13 | CP.PCM.PN ---
Subjective - Date & Time of Evaluation Date of Evaluation: 07/17/18 Time of Evaluation: 14:12 - Subjective Subjective: PT CLEARED FOR D/C HOME TODAY. TO F/U WITH DR. LOREDO IN THE OFFICE NEXT WEEK. NO NEW RX TO BE GIVEN. F/U WITH GI OUTPATIENT. NO FURTHER ORDERS. -FOLLOW UP WITH DR. DIALLO IN THE OFFICE WITHIN 7 DAYS---CALL THE OFFICE TO MAKE YOUR APPT. -FOLLOW UP WITH DR. FIGUEROA IN HIS OFFICE WITHIN 10-14 DAYS AND NEEDED---CALL THE OFFICE TO MAKE YOUR APPT. -CONTINUE HOME MEDICATIONS USUAL. -NO NEW PRESCRIPTIONS. -FOR FURTHER CONCERNS OR QUESTIONS, CONTACT DR. DIALLO'S OFFICE. Objective - Vital Signs/Intake and Output Vital Signs (last 24 hours): Temp Pulse Resp BP Pulse Ox 98.5 F 60 20 109/62 98 07/17/18 08:54 07/17/18 08:54 07/17/18 08:54 07/17/18 08:54 07/17/18 08:54 Intake and Output: 07/17/18 07/17/18 06:59 18:59 Intake Total 1700 Output Total 500 Balance 1200 - Medications Medications: Current Medications Albuterol/Ipratropium (Combivent Respimat) 1 puff IH RQ4 PRN PRN Reason: Shortness of Breath Alprazolam (Xanax) 0.5 mg PO HS [facility] Last Admin: 07/16/18 23:40 Dose: Not Given Aspirin (Aspirin Chewable) 81 mg PO DAILY [facility] Last Admin: 07/17/18 09:15 Dose: 81 mg Carvedilol (Coreg) 6.25 mg PO Q12 [facility] Last Admin: 07/17/18 09:15 Dose: 6.25 mg Cilostazol (Pletal) 50 mg PO BID [facility] Last Admin: 07/17/18 09:15 Dose: 50 mg Cyclobenzaprine HCl (Flexeril) 10 mg PO TID [facility] Last Admin: 07/17/18 14:06 Dose: 10 mg Montelukast Sodium (Singulair) 10 mg PO HS [facility] Last Admin: 07/16/18 21:49 Dose: 10 mg Oxycodone/Acetaminophen (Percocet 5/325 Mg Tab) 1 tab PO Q6 PRN PRN Reason: Pain, moderate (4-7) Last Admin: 07/17/18 14:05 Dose: 1 tab Ranolazine (Ranexa) 500 mg PO BID [facility] Last Admin: 07/17/18 09:15 Dose: 500 mg Rosuvastatin Calcium (Crestor) 10 mg PO HS [facility] Last Admin: 07/16/18 21:49 Dose: 10 mg Fluticasone/Salmeterol (Advair Diskus 500/50) 1 puff INH RQD [facility] Last Admin: 07/17/18 07:50 Dose: Not Given - Labs Labs: 07/15/18 16:05 07/15/18 16:05
[2018-07-17 15:59] VITALS: BP 124/69; TEMP 98.1; O2SAT 97
--- NOTE | 2018-07-19 11:36 | CARD ---
APPROVED REPORT Date of service: 07/15/2018 EKG Measurement Heart [id number] <Conclusion> Sinus bradycardia Possible Inferior infarct, age undetermined Abnormal ECG
[2018-07-22] MEDS ORDERED: ALENDRONATE SODIUM 70 MG PO SCH (10:00)
--- NOTE | 2018-09-19 19:32 | PN ---
DATE: 07/16/2018 TIME: 6:30 pm. SUBJECTIVE: The patient is still having minimal abdominal pain. She is able to tolerate the oral feeding today. She has been seen by desizing machine back tender. The patient has no chest pain, but she is having ongoing diffuse abdominal pain and also she is receiving IV fluids. She is feeling otherwise better. PHYSICAL EXAMINATION: VITAL SIGNS: Temperature 98.6, pulse 56, respirations 20, blood pressure 90/55, saturation 96%. LABORATORY DATA: Urinalysis is nonspecific. ASSESSMENT AND PLAN: The patient is a 58-year-old female admitted with acute gastroenteritis and associated with acute abdominal pain and dehydration. Currently improving and we will continue the current treatment and possibly discharge plan tomorrow. Carol Wong MD
--- NOTE | 2018-09-20 07:44 | DS ---
This is a 58-year-old female with a history of multiple medical problems including hypertension, hypercholesterolemia, COPD, history of cervical and lumbar spinal surgery, history of angiogram, nonobstructive coronary disease, admitted to the hospital with a 2-day's history of epigastric pain, vomiting and diarrhea and unable to eat anything by mouth. She was also having episodes of fever and chills. The patient came to the office. At that time, she was having increasing weakness, lethargic and she was also having increasingly low blood pressure. Given the acuteness, I advised the patient to go to the emergency room. In the emergency room, the patient had a CAT scan of the abdomen, which was showing evidence of diverticulosis, but no diverticulitis, enteritis likely. Also, status post cholecystectomy. The patient admitted to the hospital with diagnosis of acute gastroenteritis associated with dehydration; IV fluids started. The patient kept n.p.o. beginning because of the vomiting. Slowly, her condition got better. On the day of discharge, the patient clinically feeling extremely well. Vital signs are stable. She will be discharged home. She will continue the current treatment. No new antibiotic needed at this time. She will follow up as an outpatient. We will follow up the patient. Carol Wong MD
== END 2018-07-17 17:15 | disposition home or self-care (01) ==
LOC: C.ER 15:23 → C.9E 18:38 → UNDOADMIN 18:38 → C.3T 21:00
PROVIDERS: ADMIT Internal Medicine; ATTEND Internal Medicine
DX: K52.9 Noninfective gastroenteritis and colitis, unspecified (principal); E86.0 Dehydration; K57.90 Diverticulosis of intestine, part unspecified, without perforation or abscess without bleeding; E03.9 Hypothyroidism, unspecified; E78.00 Pure hypercholesterolemia, unspecified; J44.9 Chronic obstructive pulmonary disease, unspecified; G62.9 Polyneuropathy, unspecified; M54.10 Radiculopathy, site unspecified; Z87.440 Personal history of urinary (tract) infections; Z87.891 Personal history of nicotine dependence; Z90.49 Acquired absence of other specified parts of digestive tract; I10 Essential (primary) hypertension
CPT/HCPCS: 74177; 80053; 81001; 83690; 83735; 84100; 84484; 85025; 87086; 93005; 96361; 96374; 96375; 96376; 99285; C9113; G0378; J1885; J2270; J2405; J7040; J7042; Q9967

== ENCOUNTER 2018-09-18 19:07 | Inpatient (IN) | payer MEDICARE, MEDICAID ==
[2018-09-18 19:07] VITALS: BMI 30.1
--- NOTE | 2018-09-18 19:50 | C.PDOC ---
History Of Present Illness 58 year old female with PMHx of HTN and gastritis presents to the ED complaining of diarrhea, fever, generalized weakness, dysuria, and abdominal pain after she ate [employer] 6 days ago. Denies any recent travels or recent use of antibiotics. States she spoke with Dr. Wong who told her it will go away in 24 hours but symptoms are still constant. Denies any chills, shortness of breath, chest pain, vomiting, nausea, hematuria, melena, back pain, or any other symptoms. States she took Tylenol and pain medications with no improvement. Time Seen by Provider: 09/18/18 19:50 Chief Complaint (Nursing): Abdominal Pain History/Exam Limitations: no limitations Onset/Duration Of Symptoms: Days (6) Current Symptoms Are (Timing): Still Present Location Of Pain/Discomfort: Epigastric, LUQ, LLQ Radiation Of Pain To:: None Quality Of Discomfort: Sharp Associated Symptoms: Fever, Diarrhea, Urinary Symptoms (dysuria ). denies: Chills, Nausea, Vomiting, Back Pain, Constipation Past Medical History Reviewed: Historical Data, Nursing Documentation, Vital Signs Vital Signs: Last Vital Signs Temp 99.3 F 09/18/18 19:12 Pulse 76 09/18/18 19:12 Resp 18 09/18/18 19:12 BP 152/74 H 09/18/18 19:12 Pulse Ox 100 09/18/18 19:12 - Medical History PMH: Anemia, Arthritis, Asthma, CAD, Colonic Polyps, COPD, Depression, Emphysema, Gall Bladder Disease, HTN, Hypercholesterolemia, Hypothyroidism, Osteoporosis, Pancreatitis Denies: Chronic Kidney Disease Surgical History: Back Surgery (cervical), [facility] Procedures DORSAL & DORSOLUMBAR FUSION OF POSTERIOR COL/TECHNIQUE (04/04/15) ENDOSC POLYPECTOMY OF LG INTEST (01/05/15) ESOPHAGOGASTRODUODENOSCOPY [EGD] W/CLOSED BIOPSY (07/17/14) EXCISION INTERVERT DISC (02/22/14) EXCISION OF DUODENUM, ENDO, DIAGN (03/10/16) EXCISION OF STOMACH, ENDO, DIAGN (03/10/16) FLUOROSCOPY OF BILE DUCTS USING OTHER CONTRAST (03/10/16) FLUOROSCOPY OF MULT COR ART USING L OSM CONTRAST (12/17/17) FUSION/REFUS OF 2-3 VERTEBRAE (04/04/15) GAIT TRAINING/FUNCTIONAL AMBULATION TREATMENT (11/19/15) HOME MANAGEMENT TREATMENT (11/19/15) INSERTION OF INFUSION DEV INTO SUP VENA CAVA, PERC APPROACH (03/10/16) INSERTION OF INTERBODY SPINAL FUSION DEVICE (02/22/14) INSPECTION OF HEPATOBILIARY DUCT, ENDO (03/10/16) LEFT HEART CARDIAC CATH (02/14/14) LT HEART ANGIOCARDIOGRAM (02/14/14) MEASURE OF CARDIAC SAMPL & PRESSURE, L HEART, PERC APPROACH (12/17/17) NEBULIZER THERAPY (04/06/15) OCCUPATIONAL THERAPY (04/06/15) OTH CERVICAL FUSION OF ANTERIOR COLUMN, ANTERIOR TECHNIQUE (02/22/14) PHYSICAL THERAPY NEC (04/06/15) RECREATIONAL THERAPY (04/06/15) RELEASE LUMBAR VERTEBRA, OPEN APPROACH (11/14/15) REMOVAL OF INFUSION DEV FROM GREAT VESSEL, TOLL OPERATOR APPROACH (03/10/16) ULTRASONOGRAPHY OF SUPERIOR VENA CAVA, GUIDANCE (03/10/16) Family History: States: No Known Family Hx - Social History Hx Alcohol Use: No Hx Substance Use: No - Immunization History Hx Tetanus Toxoid Vaccination: No Hx Influenza Vaccination: No Hx Pneumococcal Vaccination: No Review Of Systems Constitutional: Positive for: Fever, Weakness Eyes: Negative for: Pain ENT: Negative for: Ear Pain Cardiovascular: Negative for: Chest Pain Respiratory: Negative for: Cough, Shortness of Breath Gastrointestinal: Positive for: Abdominal Pain, Diarrhea. Negative for: Nausea, Vomiting, Constipation, Melena, Hematochezia, Hematemesis Genitourinary: Positive for: Dysuria. Negative for: Frequency, Hematuria, Vaginal Discharge, Vaginal Bleeding Musculoskeletal: Negative for: Neck Pain, Back Pain Neurological: Negative for: Headache Physical Exam - Physical Exam Appears: Non-toxic, No Acute Distress Skin: Warm, Dry, No Rash Head: Normacephalic Eye(s): bilateral: Normal Inspection Oral Mucosa: Moist Neck: Supple, Other (no menigeal signs) Cardiovascular: Rhythm Regular Respiratory: No Rales, No Rhonchi, No Wheezing Gastrointestinal/Abdominal: Soft, Tenderness (Epigastric, LUQ, LLQ), No Distention, No Guarding, No Rebound Back: No Normal Inspection Extremity: Bilateral: Atraumatic, Normal Color And Temperature, Normal ROM Neurological/Psych: Oriented x3, Normal Speech Gait: Steady ED Course And Treatment - Laboratory Results Result Diagrams: 09/19/18 18:29 09/19/18 18:29 ECG: Interpreted By Me, Viewed By Me ECG Rhythm: Sinus Rhythm ECG Interpretation: No Acute Changes Interpretation Of ECG: No stemi. Rate From EC O2 Sat by Pulse Oximetry: 100 (NA) Pulse Ox Interpretation: Normal Medical Decision Making Medical Decision Making: Plan - CT abd/pel - EKG - Bloodwork - Toradol 15mg IVP - IV fluids - UA - Stool culture [address] abx ordered Paged Dr. Wong pt in [facility] [phone] Wong: to admit to his service abx running, pt in nad, agreeable to plan Disposition - Disposition Disposition: HOSPITALIZED Disposition Time: 22:58 Condition: GOOD - Clinical Impression Clinical Impression: Pancolitis - Scribe Statement The provider has reviewed the documentation as recorded by the Scribe Elham Yoder All medical record entries made by the Scribe were at my direction and personally dictated by me. I have reviewed the chart and agree that the record accurately reflects my personal performance of the history, physical exam, medical decision making, and the department course for this patient. I have also personally directed, reviewed, and agree with the discharge instructions and disposition.
[2018-09-18] MEDS ORDERED: Sodium Chloride 0.9% 1,000 ML IV SCH (20:30)
[2018-09-18 20:38] LABS: BASO % 0.4 % (0.0-2.0); EOS # 0.1 K/uL (0.0-0.7); EOS % 0.6 % (0.0-4.0); HEMOGLOBIN 11.5 g/dL (11.0-16.0); LYMPH # 1.8 K/uL (1.0-4.3); LYMPH % 15.7 % (20.0-40.0); MEAN CELL VOLUME 88.3 fL (81.0-99.0); MEAN CORPUSCULAR HEMOGLOBIN 30.8 pg (27.0-31.0); MEAN CORPUSCULAR HGB CONC 34.9 g/dL (33.0-37.0); MEAN PLATELET VOLUME 9.3 fL (7.2-11.7); MONO # 0.6 K/uL (0.0-0.8); MONO % 5.5 % (0.0-10.0); NEUT # 8.7 K/uL (1.8-7.0); NEUT % 77.8 % (50.0-75.0); RBC 3.74 Mil/uL (3.80-5.20); RED CELL DISTRIBUTION WIDTH 13.3 % (11.5-14.5); WHITE BLOOD COUNT 11.2 K/uL (4.8-10.8)
[2018-09-18 20:50] LABS: ALB/GLOB RATIO 1.2 (1.0-2.1); ALBUMIN 3.9 g/dL (3.5-5.0); ALT/SGPT 23 U/L (9-52); AST/SGOT 25 U/L (14-36); BLOOD UREA NITROGEN 13 mg/dL (7-17); CALCIUM 9.1 mg/dl (8.6-10.4); GFR NON-AFRICAN AMERICAN > 60; LIPASE 185 U/L (23-300)
[2018-09-18] MEDS ORDERED: metroNIDAZOLE IV 500 mg/100 ml 500 MG/100 ML BAG IVPB STA (22:18)
[2018-09-18] MEDS ORDERED: Ciprofloxacin 400mg/200ml D5W 400 MG/200 ML BAG IVPB STA (22:18)
[2018-09-18] MEDS ORDERED: Iohexol 350mgl/ml 50 ML ONE (22:27)
[2018-09-18] MEDS ORDERED: metroNIDAZOLE IV 500 mg/100 ml 500 MG/100 ML BAG ONE (22:32)
[2018-09-18] MEDS ORDERED: Ciprofloxacin 400mg/200ml D5W 400 MG/200 ML BAG IVPB ONE (23:54)
--- NOTE | 2018-09-18 23:57 | CP.PCM.HP ---
History of Present Illness - History of Present Illness History of Present Illness: Chief complaint: Abdominal pain, diarrhea History of present illness: 58-year-old female with history of hypertension, COPD, cervical spondylosis, lumbar disc disease, status post surgical intervention for both the cervical, lumbar disc. Patient recently had a thyroidectomy. Currently on multiple chronic pain medication because of the ongoing pain. Patient quit smoking couple of years ago, she also underwent a coronary angio gram, showing evidence of nonobstructive coronaries 2 years ago. Patient was recently hospitalized with the chest pain. Also recently had an episode of acute abdominal pain, with diarrhea. But this time patient was having symptoms of abdominal pain, bloated sensation, and a recurrent diarrhea for almost one week duration. Patient called me, at the time she was having increasing abdominal pain, I advised the patient if there is no improvement in next 24 hours she needs to go to the emergency room after taking probiotic. Patient recently did not take any antibiotic. Patient was not able to eat well. She was also having severe abdominal discomfort, generalized pain noted, especially in the suprapubic area, after eating anything she goes to the bathroom, mostly liquid stools noted. Patient claims that a few days ago patient ate [employer], from there she started having symptoms.. No recent travel otherwise. No blood in the stools noted. 10 days ago patient presented to the office with acute bronchitis, at the time took antibiotic also. Now having increasing abdominal pain. Intermittent colicky in nature. Associated with a few episodes of watery stools, loss of appetite. Poor intake noted. Past medical history: Hypertension, osteoarthritis, osteoporosis, COPD, cervical, lumbar disc disease, status post surgery, thyroidectomy. Allergies: No known drug allergies Personal history: Patient used to smoke in the past many years ago. She quit 2 years ago. No alcohol history. Surgical history: Cervical spinal surgery, lumbar spinal surgery, cholecystectomy, partial thyroidectomy. Family history: Mother had hypertension and diabetes coronary artery disease and coronary artery bypass grafting Siblings sister had chronic kidney disease and brother of AIDS Review of system: Patient now admitted with ongoing abdominal pain. Frequent episodes of diarrhea. At least a week duration. Episodes of nausea on and off noted No chest pain. But poor intake, poor appetite noted. She also had a some weight loss recently. On examination: Vital signs stable. Chest good air entry Regular heart sound noted Abdomen diffuse tenderness present. Bowel movements present. 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 CT scan of the abdomen showing evidence of diffuse pancolitis. Assessment and recommendation: 58-year-old female with multiple medical history including COPD, hypertension, cervical spinal disease, and lumbar spinal disease, hypothyroidism, thyroid disease, status post a thyroidectomy. Patient now admitted with ongoing abdominal pain, and associated diarrhea most l ikely related to acute colitis. Likely an infectious colitis. Inflammatory colitis cannot be ruled out. Suggested GI evaluation. We'll start the patient on Flagyl, ciprofloxacin for empirical treatment. DVT GI prophylaxis. Pain management. IV fluid. Will keep nothing by mouth. Stool workup ordered. C. difficile colitis cannot be ruled out. Order is placed GI evaluation and will follow the patient Present on Admission - Present on Admission Any Indicators Present on Admission: No History of DVT/PE: No History of Uncontrolled Diabetes: No Urinary Catheter: No Decubitus Ulcer Present: No Past Patient History - Tetanus Immunizations Tetanus Immunization: Unknown - Past Medical History & Family History Past Medical History?: Yes - Past Social History Smoking Status: Former Smoker - CARDIAC Hx Hypercholesterolemia: Yes Hx Hypertension: Yes - PULMONARY Hx Asthma: Yes Hx Chronic Obstructive Pulmonary Disease (COPD): Yes Hx Emphysema: Yes - NEUROLOGICAL Hx Neurological Disorder: Yes HX Cerebrovascular Accident: No Other/Comment: Peripheral Neuropathy, LLE radiculopathy and paresthesia. - HEENT Hx HEENT Problems: No - RENAL Hx Chronic Kidney Disease: No - ENDOCRINE/METABOLIC Hx Hypothyroidism: Yes - HEMATOLOGICAL/ONCOLOGICAL Hx Anemia: Yes - INTEGUMENTARY Hx Dermatological Problems: No - MUSCULOSKELETAL/RHEUMATOLOGICAL Hx Arthritis: Yes Hx Osteoporosis: Yes - GASTROINTESTINAL Hx Gall Bladder Disease: Yes Hx Pancreatitis: Yes - GENITOURINARY/GYNECOLOGICAL Hx Genitourinary Disorders: Yes Hx Urinary Tract Infection: Yes (not at present) - PSYCHIATRIC Hx Depression: Yes Hx Substance Use: No - SURGICAL HISTORY Hx Cholecystectomy: Yes (1998) - ANESTHESIA Hx Anesthesia: Yes Hx Anesthesia Reactions: No Hx Malignant Hyperthermia: No Meds Allergies/Adverse Reactions: Allergies Allergy/AdvReac Type Severity Reaction Status Date / Time No Known Allergies Allergy Verified 09/18/18 19:20 Results - Vital Signs Recent Vital Signs: Last Vital Signs Temp 99.1 F 09/18/18 22:26 Pulse 63 11/24/18 22:26 Resp 16 09/18/18 22:26 BP 110/64 09/18/18 22:26 Pulse Ox 100 09/18/18 22:58 - Labs Result Diagrams: 09/19/18 03:53 09/19/18 03:53 Labs: Laboratory Results - last 24 hr 09/18/18 09/18/18 20:35 20:35 WBC 11.2 H D RBC 3.74 L Hgb 11.5 D Hct 33.0 L MCV 88.3 D MCH 30.8 MCHC 34.9 RDW 13.3 Plt Count 228 MPV 9.3 Neut % (Auto) 77.8 H Lymph % (Auto) 15.7 L [place] % (Auto) 5.5 Eos % (Auto) 0.6 Baso % (Auto) 0.4 Neut # (Auto) 8.7 H Lymph # (Auto) 1.8 [place] # (Auto) 0.6 Eos # (Auto) 0.1 Baso # (Auto) 0.0 Sodium 137 Potassium 2.9 L Chloride 100 Carbon Dioxide 23 Anion Gap 17 BUN 13 Creatinine 0.8 Est GFR ( Amer) > 60 Est GFR (Non-Af Amer) > 60 Random Glucose 136 H Calcium 9.1 Total Bilirubin 0.4 AST 25 ALT 23 Alkaline Phosphatase 93 Total Protein 7.2 Albumin 3.9 Globulin 3.3 Albumin/Globulin Ratio 1.2 Lipase 185
[2018-09-19 03:56] LABS: BASO # 0.1 K/uL (0.0-0.2); BASO % 0.5 % (0.0-2.0); EOS # 0.1 K/uL (0.0-0.7); EOS % 0.8 % (0.0-4.0); HEMOGLOBIN 9.8 g/dL (11.0-16.0); LYMPH # 1.9 K/uL (1.0-4.3); LYMPH % 18.8 % (20.0-40.0); MEAN CELL VOLUME 88.9 fL (81.0-99.0); MEAN CORPUSCULAR HGB CONC 33.7 g/dL (33.0-37.0); MEAN PLATELET VOLUME 8.6 fL (7.2-11.7); MONO # 0.7 K/uL (0.0-0.8); MONO % 6.6 % (0.0-10.0); NEUT # 7.6 K/uL (1.8-7.0); NEUT % 73.3 % (50.0-75.0); RBC 3.29 Mil/uL (3.80-5.20); WHITE BLOOD COUNT 10.3 K/uL (4.8-10.8)
[2018-09-19 04:08] LABS: ALB/GLOB RATIO 1.2 (1.0-2.1); ALBUMIN 3.2 g/dL (3.5-5.0); ALT/SGPT 22 U/L (9-52); AST/SGOT 19 U/L (14-36); BLOOD UREA NITROGEN 12 mg/dL (7-17); CALCIUM 7.8 mg/dl (8.6-10.4); GFR NON-AFRICAN AMERICAN > 60
[2018-09-19] MEDS ORDERED: Albuterol-Ipratrop 20 mcg/actuation (4 g) IH SCH (06:00)
[2018-09-19 06:01] LABS: SQUAMOUS EPITHIAL 4 /hpf (0-5); URINE BACTERIA RARE (<OCC); URINE BILIRUBIN NEGATIVE (NEGATIVE); URINE BLOOD 1+ (NEGATIVE); URINE CLARITY Clear (Clear); URINE COLOR Yellow (YELLOW); URINE GLUCOSE (UA) NORMAL (Normal); URINE LEUKOCYTE ESTERASE NEG Leu/uL (Negative); URINE PROTEIN NEGATIVE (NEGATIVE); URINE UROBILINOGEN NORMAL mg/dL (0.2-1.0)
[2018-09-19] MEDS: metroNIDAZOLE IV 500 mg/100 ml 500 MG/100 ML BAG IVPB SCH ×3 (06:30→21:57)
--- NOTE | 2018-09-19 10:48 | CT ---
Date of service: 09/18/2018 PROCEDURE: CT Abdomen and Pelvis with contrast HISTORY: abd pain COMPARISON: 07/15/2018 TECHNIQUE: Contrast dose: 100 mL Omnipaque 350 Radiation dose: Total exam DLP = 505.5 mGy-cm. This CT exam was performed using one or more of the following dose reduction techniques: Automated exposure control, adjustment of the mA and/or kV according to patient size, and/or use of iterative reconstruction technique. FINDINGS: LOWER THORAX: Incidental 3 mm nodules right middle lobe, for which no follow-up is advised. LIVER: Unremarkable. No gross lesion or ductal dilatation. GALLBLADDER AND BILE DUCTS: Cholecystectomy PANCREAS: Unremarkable. No gross lesion or ductal dilatation. SPLEEN: Unremarkable. ADRENALS: Unremarkable. No mass. KIDNEYS AND URETERS: Unremarkable. No hydronephrosis. No solid mass. VASCULATURE: Unremarkable. No aortic aneurysm. There is atherosclerotic calcification of the abdominal aorta BOWEL: There is perrin colonic mural thickening consistent with nonspecific colitis. There are no abnormal small bowel loops. There is extensive diverticulosis of the colon most prominently in the descending and sigmoid colon. Focal pericolonic inflammatory changes noted at the sigmoid colon common nonspecific. There is also mild inflammatory change seen about the sigmoid colon. There are no abnormal small bowel loops. There is no bowel obstruction. APPENDIX: Normal appendix. PERITONEUM: Minimal ascites in the pelvis LYMPH NODES: Unremarkable. No enlarged lymph nodes. BLADDER: Unremarkable. REPRODUCTIVE: Normal uterus BONES: No acute fracture. OTHER FINDINGS: None. IMPRESSION: Nonspecific perrin colitis. No evidence of enteritis. No evidence of appendicitis. Diverticulosis of the descending and sigmoid colon. No bowel obstruction. Status post cholecystectomy. The preliminary findings for this examination were reported by [facility] at 10:11 p.m. on 09/18/2018. There is concurrence of this report with the preliminary findings.
--- NOTE | 2018-09-19 11:07 | CP.PCM.CON ---
History of Present Illness - History of Present Illness History of Present Illness: This is a 58 year old woman with abdominal pain and diarrhea. Patient is known to me from the office. She was originally evaluated in June,, for epigastric pain, nausea and vomiting. She underwent EGD on 07/17/14 which showed esophageal candidiasis, hiatal hernia, and nonerosive gastritis. Colonoscopy was performed on 01/05/15 and showed diverticulosis and two small adenomatous polyps. EGD was repeated on03/14/2016 for nausea, vomiting, epigastric pain. This showed nonerosive gastritis, negative for H pylori. She was admitted 07/15/2018 for another episode of nausea, vomiting, diarrhea and generalized abdominal pain. She improved with hydration and was discharged on 07/17/2018. She consulted Dr. Jose last week for cold symptoms and was given a prescription for amoxicillin. On Thursday night, five days prior to admission, she had a meal of [employer]. Early Thursday morning, she developed diarrhea and abdominal pain. The diarrhea was watery, eight to ten times daily, without blood. The abdominal pain was generalized, sharp and colicky in quality, occurred daily, intermittent, but lasting hours at a time. The pain was not clearly related to eating or to defecating. She also complained of fever to 101.9 and chills. The diarrhea began to subside on Thursday, and yesterday she had only one soft bowel movement. She presented to the ER last night. At that time, the temperature was 99.3, and VS were stable. There was tenderness to palpation in the epigastrium and the left side of t he abdomen. The WBC count was slightly elevated at 11,200. The potassium level was low at 2.9. CT scan showed perrin-colonic mural thickening consistent with colitis. Patient denies having nausea, vomiting, difficulty swallowing, heartburn, constipation and rectal bleeding. Her appetite has been poor, and she has lost 20 pounds in the past month. Review of Systems - Review of Systems All systems: reviewed and no additional remarkable complaints except - Constitutional Constitutional: Chills, Fever, Weakness - Respiratory Respiratory: absent: Cough, Dyspnea - Gastrointestinal Gastrointestinal: Abdominal Pain, Diarrhea. absent: Constipation, Dysphagia, Heartburn, Hematochezia, Melena, Nausea, Vomiting - Genitourinary Genitourinary: Dysuria. absent: Hematuria - Musculoskeletal Musculoskeletal: absent: Back Pain Past Patient History - Tetanus Immunizations Tetanus Immunization: Unknown - Past Medical History & Family History Past Medical History?: Yes - Past Social History Smoking Status: Former Smoker - CARDIAC Hx Hypercholesterolemia: Yes Hx Hypertension: Yes - PULMONARY Hx Asthma: Yes Hx Chronic Obstructive Pulmonary Disease (COPD): Yes Hx Emphysema: Yes - NEUROLOGICAL Hx Neurological Disorder: Yes HX Cerebrovascular Accident: No Other/Comment: Peripheral Neuropathy, LLE radiculopathy and paresthesia. - HEENT Hx HEENT Problems: No - RENAL Hx Chronic Kidney Disease: No - ENDOCRINE/METABOLIC Hx Hypothyroidism: Yes - HEMATOLOGICAL/ONCOLOGICAL Hx Anemia: Yes - INTEGUMENTARY Hx Dermatological Problems: No - MUSCULOSKELETAL/RHEUMATOLOGICAL Hx Arthritis: Yes Hx Osteoporosis: Yes - GASTROINTESTINAL Hx Gall Bladder Disease: Yes Hx Pancreatitis: Yes - GENITOURINARY/GYNECOLOGICAL Hx Genitourinary Disorders: Yes Hx Urinary Tract Infection: Yes (not at present) - PSYCHIATRIC Hx Depression: Yes Hx Substance Use: No - SURGICAL HISTORY Hx Cholecystectomy: Yes (1998) - ANESTHESIA Hx Anesthesia: Yes Hx Anesthesia Reactions: No Hx Malignant Hyperthermia: No Meds Allergies/Adverse Reactions: Allergies Allergy/AdvReac Type Severity Reaction Status Date / Time No Known Allergies Allergy Verified 09/18/18 19:20 - Medications Medications: Current Medications Albuterol/Ipratropium (Combivent Respimat) 1 puff IH RQ8 [facility] Last Admin: 09/19/18 06:42 Dose: 1 puff Alprazolam (Xanax) 0.5 mg PO HS [facility] Aspirin (Aspirin Chewable) 81 mg PO DAILY [facility] Last Admin: 09/19/18 10:04 Dose: 81 mg Ciprofloxacin (Cipro 400mg/200ml Dsw) 400 mg in 200 mls @ 133 mls/hr IVPB Q12H [facility]; Protocol Metronidazole (Flagyl) 500 mg in 100 mls @ 100 mls/hr IVPB Q8H [facility]; Protocol Last Admin: 09/19/18 06:30 Dose: 100 mls/hr Potassium Chloride 40 meq/ (Sodium Chloride) 1,020 mls @ 75 mls/hr IV .[id number] [facility] Last Admin: 09/19/18 02:17 Dose: 75 mls/hr Morphine Sulfate (Morphine) 2 mg IVP Q6H PRN PRN Reason: Pain, severe (8-10) Last Admin: 09/19/18 09:56 Dose: 2 mg Pantoprazole Sodium (Protonix Inj) 40 mg IVP DAILY [facility] Last Admin: 09/19/18 10:04 Dose: 40 mg Physical Exam - Constitutional Appears: No Acute Distress - Head Exam Head Exam: ATRAUMATIC, NORMOCEPHALIC - Eye Exam Eye Exam: EOMI - Neck Exam Neck exam: Negative for: Lymphadenopathy, Thyromegaly - Respiratory Exam Respiratory Exam: NORMAL BREATHING PATTERN. absent: Rales, Rhonchi, Wheezes - Cardiovascular Exam Cardiovascular Exam: REGULAR RHYTHM, +S1, +S2. absent: Gallop, Rubs, Systolic Murmur - GI/Abdominal Exam GI & Abdominal Exam: Distended, Normal Bowel Sounds, Soft, Tenderness. absent: Mass, Organomegaly Additional comments: Diffuse tenderness to palpation without rebound or guarding - Rectal Exam Rectal Exam: Deferred - Extremities Exam Extremities exam: Negative for: calf tenderness, pedal edema Results - Vital Signs Recent Vital Signs: Last Vital Signs Temp 98 F 09/19/18 09:23 Pulse 61 09/19/18 09:23 Resp 18 09/19/18 09:23 BP 119/62 09/19/18 09:23 Pulse Ox 100 09/19/18 09:23 - Labs Result Diagrams: 09/19/18 03:53 09/19/18 03:53 Labs: Laboratory Results - last 24 hr 09/18/18 09/18/18 09/19/18 20:35 20:35 03:53 WBC 11.2 H D RBC 3.74 L Hgb 11.5 D Hct 33.0 L MCV 88.3 D MCH 30.8 MCHC 34.9 RDW 13.3 Plt Count 228 MPV 9.3 Neut % (Auto) 77.8 H Lymph % (Auto) 15.7 L [place] % (Auto) 5.5 Eos % (Auto) 0.6 Baso % (Auto) 0.4 Neut # (Auto) 8.7 H Lymph # (Auto) 1.8 [place] # (Auto) 0.6 Eos # (Auto) 0.1 Baso # (Auto) 0.0 Sodium 137 137 Potassium 2.9 L 3.6 Chloride 100 107 Carbon Dioxide 23 18 L Anion Gap 17 15 BUN 13 12 Creatinine 0.8 0.7 Est GFR ( Amer) > 60 > 60 Est GFR (Non-Af Amer) > 60 > 60 Random Glucose 136 H 90 Calcium 9.1 7.8 L Phosphorus 3.9 Magnesium 1.7 Total Bilirubin 0.4 0.6 AST 25 19 ALT 23 22 Alkaline Phosphatase 93 85 Total Protein 7.2 6.0 L Albumin 3.9 3.2 L Globulin 3.3 2.8 Albumin/Globulin Ratio 1.2 1.2 Lipase 185 Urine Color Urine Clarity Urine pH Ur Specific Leon Urine Protein Urine Glucose (UA) Urine Ketones Urine Blood Urine Nitrate Urine Bilirubin Urine Urobilinogen Ur Leukocyte Esterase Urine WBC (Auto) Urine RBC (Auto) Ur Squamous Epith Cells Urine Bacteria 09/19/18 09/19/18 03:53 05:50 WBC 10.3 RBC 3.29 L Hgb 9.8 L Hct 29.2 L MCV 88.9 MCH 30.0 MCHC 33.7 RDW 13.0 Plt Count 183 MPV 8.6 Neut % (Auto) 73.3 Lymph % (Auto) 18.8 L [place] % (Auto) 6.6 Eos % (Auto) 0.8 Baso % (Auto) 0.5 Neut # (Auto) 7.6 H Lymph # (Auto) 1.9 [place] # (Auto) 0.7 Eos # (Auto) 0.1 Baso # (Auto) 0.1 Sodium Potassium Chloride Carbon Dioxide Anion Gap BUN Creatinine Est GFR ( Amer) Est GFR (Non-Af Amer) Random Glucose Calcium Phosphorus Magnesium Total Bilirubin AST ALT Alkaline Phosphatase Total Protein Albumin Globulin Albumin/Globulin Ratio Lipase Urine Color Yellow Urine Clarity Clear Urine pH 6.0 Ur Specific Leon 1.005 Urine Protein Negative Urine Glucose (UA) Normal Urine Ketones Negative Urine Blood 1+ H Urine Nitrate Negative Urine Bilirubin Negative Urine Urobilinogen Normal Ur Leukocyte Esterase Neg Urine WBC (Auto) 2 Urine RBC (Auto) 7 H Ur Squamous Epith Cells 4 Urine Bacteria Rare Assessment & Plan (1) Diarrhea Assessment and Plan: Patient had sudden onset of diarrhea after eating fried chicken. In addition, she was treated for three days with amoxicillin. The most likely etiologies are C difficile, salmonella and campylobacter. Recommend checking stool for C di fficile and enteric pathogens. Will follow. Status: Acute
[2018-09-19] MEDS: Ciprofloxacin 400mg/200ml D5W 400 MG/200 ML BAG IVPB SCH (12:24)
[2018-09-19] MEDS ORDERED: metroNIDAZOLE IV 500 mg/100 ml 500 MG/100 ML BAG ONE (14:26)
--- NOTE | 2018-09-19 14:49 | CP.PCM.PN ---
Subjective - Date & Time of Evaluation Date of Evaluation: 09/19/18 Time of Evaluation: 14:47 - Subjective Subjective: Patient now in the emergency room still. Awaiting for bed. Abdominal pain noted. Liquid diet tolerating. No vomiting. Today no diarrhea yet, no bowel movement. Abdominal distention and pain noted On IV fluid On examination: Vital signs low-grade fever noted. Blood pressure 110/64 Respiration 16 saturation 100% Chest good air entry regular heart sound abdominal tenderness present Patient was seen by valuation manager. Labs reviewed Nonspecific Assessment and recommendation 58-year-old female admitted to the hospital with a possible acute pancolitis. Infectious, inflammatory. Workup pending. On Cipro Flagyl. IV fluid. Continue the current treatment close monitoring for possible chronic side effects secondary to colitis including obstruction and perforation. Will follow- up the patient Objective - Vital Signs/Intake and Output Vital Signs (last 24 hours): Temp Pulse Resp BP Pulse Ox 98 F 61 18 119/62 100 09/19/18 09:23 09/19/18 09:23 09/19/18 09:23 09/19/18 09:23 09/19/18 09:23 - Medications Medications: Current Medications Albuterol/Ipratropium (Combivent Respimat) 1 puff IH RQ8 [facility] Last Admin: 09/19/18 06:42 Dose: 1 puff Alprazolam (Xanax) 0.5 mg PO HS [facility] Aspirin (Aspirin Chewable) 81 mg PO DAILY [facility] Last Admin: 09/19/18 10:04 Dose: 81 mg Ciprofloxacin (Cipro 400mg/200ml Dsw) 400 mg in 200 mls @ 133 mls/hr IVPB Q12H [facility]; Protocol Last Admin: 09/19/18 12:24 Dose: 133 mls/hr Metronidazole (Flagyl) 500 mg in 100 mls @ 100 mls/hr IVPB Q8H [facility]; Protocol Last Admin: 09/19/18 06:30 Dose: 100 mls/hr Potassium Chloride 40 meq/ (Sodium Chloride) 1,020 mls @ 75 mls/hr IV .[id number] [facility] Last Admin: 09/19/18 14:19 Dose: 75 mls/hr Morphine Sulfate (Morphine) 2 mg IVP Q6H PRN PRN Reason: Pain, severe (8-10) Last Admin: 09/19/18 09:56 Dose: 2 mg Pantoprazole Sodium (Protonix Inj) 40 mg IVP DAILY [facility] Last Admin: 09/19/18 10:04 Dose: 40 mg - Labs Labs: 09/19/18 03:53 09/19/18 03:53
[2018-09-19 18:36] LABS: BASO % 0.4 % (0.0-2.0); EOS % 0.5 % (0.0-4.0); HEMOGLOBIN 11.3 g/dL (11.0-16.0); LYMPH # 1.3 K/uL (1.0-4.3); LYMPH % 15.9 % (20.0-40.0); MEAN CELL VOLUME 89.1 fL (81.0-99.0); MEAN CORPUSCULAR HEMOGLOBIN 29.7 pg (27.0-31.0); MEAN CORPUSCULAR HGB CONC 33.3 g/dL (33.0-37.0); MEAN PLATELET VOLUME 8.4 fL (7.2-11.7); MONO # 0.4 K/uL (0.0-0.8); MONO % 4.9 % (0.0-10.0); NEUT # 6.4 K/uL (1.8-7.0); NEUT % 78.3 % (50.0-75.0); RBC 3.82 Mil/uL (3.80-5.20); WHITE BLOOD COUNT 8.2 K/uL (4.8-10.8)
[2018-09-19 18:56] LABS: ALB/GLOB RATIO 1.2 (1.0-2.1); ALBUMIN 3.5 g/dL (3.5-5.0); ALT/SGPT 18 U/L (9-52); AST/SGOT 22 U/L (14-36); BLOOD UREA NITROGEN 11 mg/dL (7-17); CALCIUM 8.3 mg/dl (8.6-10.4); GFR NON-AFRICAN AMERICAN > 60
[2018-09-20] MEDS: Ciprofloxacin 400mg/200ml D5W 400 MG/200 ML BAG IVPB SCH ×2 (00:30→12:22)
[2018-09-20] MEDS: Albuterol-Ipratrop 20 mcg/actuation (4 g) IH SCH (02:02)
[2018-09-20] MEDS ORDERED: metroNIDAZOLE IV 500 mg/100 ml 500 MG/100 ML BAG ONE (06:43)
[2018-09-20] MEDS: metroNIDAZOLE IV 500 mg/100 ml 500 MG/100 ML BAG IVPB SCH ×4 (06:46→21:50)
--- NOTE | 2018-09-20 09:27 | CP.PCM.PN ---
Subjective - Date & Time of Evaluation Date of Evaluation: 09/20/18 Time of Evaluation: 09:24 - Subjective Subjective: Patient states that the abdominal pain persists, unchanged. She denies having nausea, vomiting. Of note, she has not had any diarrhea in the past 24 hours. Objective - Vital Signs/Intake and Output Vital Signs (last 24 hours): Temp Pulse Resp BP Pulse Ox 97.5 F L 60 20 139/69 95 09/20/18 08:38 09/20/18 08:38 09/20/18 08:38 09/20/18 08:38 09/20/18 08:38 - Medications Medications: Current Medications Albuterol/Ipratropium (Combivent Respimat) 1 puff IH RQ8 [facility] [place] Last Admin: 09/20/18 02:02 Dose: 1 puff Alprazolam (Xanax) 0.5 mg PO HS [facility] [place] Last Admin: 09/19/18 21:57 Dose: 0.5 mg Aspirin (Aspirin Chewable) 81 mg PO DAILY [facility] Last Admin: 09/19/18 10:04 Dose: 81 mg Ciprofloxacin (Cipro 400mg/200ml Dsw) 400 mg in 200 mls @ 133 mls/hr IVPB Q12H [facility]; Protocol Last Admin: 09/20/18 00:30 Dose: 133 mls/hr Metronidazole (Flagyl) 500 mg in 100 mls @ 100 mls/hr IVPB Q8H [facility]; Protocol Last Admin: 09/20/18 06:46 Dose: 100 mls/hr Morphine Sulfate (Morphine) 2 mg IVP Q4 PRN PRN Reason: Pain, moderate (4-7) Last Admin: 09/20/18 06:35 Dose: 2 mg Pantoprazole Sodium (Protonix Inj) 40 mg IVP DAILY [facility] Last Admin: 09/19/18 10:04 Dose: 40 mg - Labs Labs: 09/19/18 18:29 09/19/18 18:29 - Constitutional Appears: No Acute Distress - Head Exam Head Exam: ATRAUMATIC, NORMOCEPHALIC - Eye Exam Eye Exam: EOMI, PERRL - Neck Exam Neck Exam: absent: Lymphadenopathy, Thyromegaly - Respiratory Exam Respiratory Exam: NORMAL BREATHING PATTERN. absent: Rales, Rhonchi, Wheezes - Cardiovascular Exam Cardiovascular Exam: REGULAR RHYTHM, +S1, +S2. absent: Gallop, Rubs, Murmur - GI/Abdominal Exam GI & Abdominal Exam: Soft, Tenderness, Normal Bowel Sounds. absent: Mass, Organomegaly Additional comments: Diffuse mild tenderness - Rectal Exam Rectal Exam: Deferred - Extremities Exam Extremities Exam: absent: Calf Tenderness, Pedal Edema Assessment and Plan (1) Diarrhea Assessment & Plan: Diarrhea has resolved, though patient continues to complain of abdominal pain. Initial stool examination shows the presence of leukocytes, but C difficile toxin was negative. Will check other stool studies (C+S, O+P, giardia antigen). Status: Acute
[2018-09-20] MEDS: Dextrose 5%/0.45% NS 1,000 ML IV SCH (14:56)
--- NOTE | 2018-09-20 20:54 | CARD ---
APPROVED REPORT Date of service: 09/18/2018 EKG Measurement Heart [id number] <Conclusion> Normal sinus rhythm Normal ECG
[2018-09-21] MEDS: Albuterol-Ipratrop 20 mcg/actuation (4 g) IH SCH ×3 (00:18→17:27)
[2018-09-21] MEDS: Ciprofloxacin 400mg/200ml D5W 400 MG/200 ML BAG IVPB SCH ×2 (00:30→11:55)
[2018-09-21] MEDS: Dextrose 5%/0.45% NS 1,000 ML IV SCH ×3 (04:05→18:26)
[2018-09-21] MEDS: metroNIDAZOLE IV 500 mg/100 ml 500 MG/100 ML BAG IVPB SCH ×3 (05:53→21:57)
--- NOTE | 2018-09-21 10:28 | CP.PCM.PN ---
Subjective - Date & Time of Evaluation Date of Evaluation: 09/21/18 Time of Evaluation: 10:25 - Subjective Subjective: Patient reports vomiting four times since yesterday. She continues to experience diffuse abdominal pain requiring parenteral narcotics. She has not had any bowel movements. Objective - Vital Signs/Intake and Output Vital Signs (last 24 hours): Temp Pulse Resp BP Pulse Ox 98.2 F 55 L 20 159/81 H 98 09/21/18 07:00 09/21/18 07:00 09/21/18 07:00 09/21/18 07:00 09/21/18 07:00 Intake and Output: 09/21/18 09/21/18 06:59 18:59 Intake Total 625 Balance 625 - Medications Medications: Current Medications Albuterol/Ipratropium (Combivent Respimat) 1 puff IH RQ8 [facility] Last Admin: 09/21/18 07:54 Dose: 1 puff Alprazolam (Xanax) 0.5 mg PO HS [facility] Last Admin: 09/20/18 21:50 Dose: 0.5 mg Aspirin (Aspirin Chewable) 81 mg PO DAILY [facility] Last Admin: 09/21/18 09:21 Dose: 81 mg Ciprofloxacin (Cipro 400mg/200ml Dsw) 400 mg in 200 mls @ 133 mls/hr IVPB Q12H [facility]; Protocol Last Admin: 09/21/18 00:30 Dose: 133 mls/hr Metronidazole (Flagyl) 500 mg in 100 mls @ 100 mls/hr IVPB Q8H [facility]; Protocol Last Admin: 09/21/18 05:53 Dose: 100 mls/hr Dextrose/Sodium Chloride (Dextrose 5%/0.45% Ns 1000 Ml) 1,000 mls @ 75 mls/hr IV .[id number] [facility] Last Admin: 09/21/18 05:56 Dose: 75 mls/hr Morphine Sulfate (Morphine) 2 mg IVP Q4 PRN PRN Reason: Pain, moderate (4-7) Last Admin: 09/21/18 09:22 Dose: 2 mg Ondansetron HCl (Zofran Inj) 4 mg IVP Q6H PRN PRN Reason: Nausea/Vomiting Pantoprazole Sodium (Protonix Inj) 40 mg IVP DAILY [facility] Last Admin: 09/21/18 09:22 Dose: 40 mg - Labs Labs: 11/25/18 18:29 09/19/18 18:29 - Constitutional Appears: No Acute Distress - Head Exam Head Exam: ATRAUMATIC, NORMOCEPHALIC - Eye Exam Eye Exam: EOMI, PERRL - Neck Exam Neck Exam: absent: Lymphadenopathy, Thyromegaly - Respiratory Exam Respiratory Exam: NORMAL BREATHING PATTERN. absent: Rales, Rhonchi, Wheezes - Cardiovascular Exam Cardiovascular Exam: REGULAR RHYTHM, +S1, +S2. absent: Gallop, Rubs, Murmur - GI/Abdominal Exam GI & Abdominal Exam: Soft, Tenderness, Normal Bowel Sounds. absent: Mass, Organomegaly Additional comments: Diffuse tenderness, maximal in LUQ - Rectal Exam Rectal Exam: Deferred - Extremities Exam Extremities Exam: absent: Calf Tenderness, Pedal Edema Assessment and Plan (1) Diarrhea Assessment & Plan: Diarrhea has resolved, but patient continues to complain of vomiting and abdominal pain. Will repeat CT scan. Status: Acute
[2018-09-21] MEDS ORDERED: Iohexol 240 (50 ml) PO ONE (12:00)
[2018-09-21 14:08] LABS: BASO % 0.5 % (0.0-2.0); EOS # 0.1 K/uL (0.0-0.7); EOS % 1.1 % (0.0-4.0); HEMOGLOBIN 10.8 g/dL (11.0-16.0); LYMPH # 1.3 K/uL (1.0-4.3); LYMPH % 24.1 % (20.0-40.0); MEAN CELL VOLUME 88.3 fL (81.0-99.0); MEAN CORPUSCULAR HEMOGLOBIN 29.7 pg (27.0-31.0); MEAN CORPUSCULAR HGB CONC 33.7 g/dL (33.0-37.0); MEAN PLATELET VOLUME 8.5 fL (7.2-11.7); MONO # 0.3 K/uL (0.0-0.8); MONO % 6.2 % (0.0-10.0); NEUT # 3.7 K/uL (1.8-7.0); NEUT % 68.1 % (50.0-75.0); NRBC % 0.1 % (0.0-2.0); RBC 3.62 Mil/uL (3.80-5.20); WHITE BLOOD COUNT 5.4 K/uL (4.8-10.8)
[2018-09-21 14:23] LABS: ALB/GLOB RATIO 1.1 (1.0-2.1); ALBUMIN 3.3 g/dL (3.5-5.0); ALT/SGPT 27 U/L (9-52); AST/SGOT 22 U/L (14-36); BLOOD UREA NITROGEN 13 mg/dL (7-17); CALCIUM 8.1 mg/dl (8.6-10.4); GFR NON-AFRICAN AMERICAN > 60
[2018-09-21 16:44] LABS: SOURCE STOOL
[2018-09-21] MEDS ORDERED: Acetaminophen IV 1,000 MG in Premixed IV 1 EA IV PRN (17:17)
--- NOTE | 2018-09-21 17:28 | CT ---
Date of service: 09/21/2018 PROCEDURE: CT Abdomen and Pelvis without intravenous contrast HISTORY: Abdominal pain, history of colitis COMPARISON: Comparison is made with 09/18/2018 TECHNIQUE: Axial and reformatted coronal and sagittal CT images of the abdomen and pelvis were obtained without IV or oral contrast administration.. Contrast dose: 0 Radiation dose: Total exam DLP = 561.79 mGy-cm. This CT exam was performed using one or more of the following dose reduction techniques: Automated exposure control, adjustment of the mA and/or kV according to patient size, and/or use of iterative reconstruction technique. FINDINGS: LOWER THORAX: Interval appearance of small bilateral pleural effusions since the previous study. LIVER: No significant interval change in the liver noted since the previous exam. No evidence of liver mass. GALLBLADDER AND BILE DUCTS: This post cholecystectomy. PANCREAS: Unremarkable. No gross lesion or ductal dilatation. SPLEEN: Unremarkable. ADRENALS: Unremarkable. No mass. KIDNEYS AND URETERS: Unremarkable. No hydronephrosis. No solid mass. VASCULATURE: Unremarkable. No aortic aneurysm. Foci of atherosclerotic calcification are again noted in the abdominal aorta BOWEL: Interval improvement in the previously noted diffuse large bowel wall thickening suggestive of pancolitis. Mild fat stranding noted adjacent to the hepatic flexure. Colonic diverticulosis are seen without evidence of diverticulitis. No evidence of small bowel obstruction. APPENDIX: No evidence of appendicitis. PERITONEUM: Unremarkable. No free fluid. No free air. LYMPH NODES: Unremarkable. No enlarged lymph nodes. BLADDER: Unremarkable. REPRODUCTIVE: Unremarkable. BONES: No acute fracture. OTHER FINDINGS: None. IMPRESSION: Interval significant improvement in the previously noted diffuse large bowel wall thickening. The assessment of the GI system is somewhat limited without oral and IV contrast administration. Mild fat stranding noted adjacent to the splenic flexure in the left upper abdomen. Colonic diverticulosis without evidence of diverticulitis. Otherwise no significant interval changes.
--- NOTE | 2018-09-21 20:37 | PN ---
DATE: 09/20/2018 TIME OF VISIT: 12:30 p.m. SUBJECTIVE: The patient was seen by shrimper in the morning. Abdominal pain persistently noted. Vomiting present, but less then before. Currently, she does not have any bowel movement, but able to pass the gas. No problem in urination. Nausea noted also. PHYSICAL EXAMINATION: VITAL SIGNS: Stable. ASSESSMENT AND PLAN: Currently, the patient is receiving ciprofloxacin and Flagyl intravenously. Some improvement noted. We will continue the intravenous fluid, antibiotic, closely monitor. Keep her n.p.o. GI evaluation. We will follow the patient. Carol Wong MD
[2018-09-21] MEDS: Potassium Chl 40 mEq in D5-1/2 1,000 ML IV SCH (21:56)
[2018-09-22] MEDS: Ciprofloxacin 400mg/200ml D5W 400 MG/200 ML BAG IVPB SCH ×3 (00:14→23:49)
[2018-09-22] MEDS: Albuterol-Ipratrop 20 mcg/actuation (4 g) IH SCH ×3 (00:31→17:26)
[2018-09-22] MEDS: metroNIDAZOLE IV 500 mg/100 ml 500 MG/100 ML BAG IVPB SCH ×3 (05:35→21:45)
--- NOTE | 2018-09-22 07:10 | PN ---
DATE: 09/21/2018 SUBJECTIVE: The patient is now seen by me in bedside. The patient's doctor received CAT scan of the abdomen with oral and IV contrast. Still having episodes of vomiting. She at least vomited six times since morning. Still n.p.o. Receiving IV fluids. The patient is still having progressively worsening abdominal pain. No bowel moments noted, but able to pass the gas. Urine output is okay. The patient is having some blood in the urine. PHYSICAL EXAMINATION: VITAL SIGNS: Temperature is afebrile, 98.2; pulse 55; blood pressure 159/81; respirations 20; saturation 90% on room air. ABDOMEN: There is a significant tenderness in the left upper quadrant as well as in the epigastric region. EXTREMITIES: No pedal edema. NEUROLOGICAL: The patient is alert, awake, and oriented. LABORATORY DATA: The patient's labs reviewed, which were done today. Potassium is 3.3, magnesium is 1.8, which was done yesterday. CRP was noted to be 24.1. CBC: WBC improved to 5.4. Stool leukocytes are positive. Cryptosporidium was not detected. C. difficile is negative. Giardia antigen was negative, but Salmonella testing is still currently pending. The patient now had a CAT scan, official report is pending, but seems to be there is some improvement in the colitis changes. ASSESSMENT AND PLAN: A 58-year-old female with history of nonobstructive coronary artery disease, chronic obstructive pulmonary disease, hypertension, hypercholesterolemia. The patient has cervical and lumbar spinal surgical interventions for disk disease, on pain management. Admitted with acute colitis involving pancolitis associated with symptoms of abdominal pain, nausea and vomiting. Still the patient is not improving. We will continue with intravenous fluids, potassium supplementation. Awaiting for CAT scan of the abdomen results. Gastroenterology followup. Reduce the opioid medications. Added Tylenol intravenously for at least two days for low pain. We will follow the patient. I spoke the patient in detail. Carol Wong MD
--- NOTE | 2018-09-22 08:02 | CP.PCM.PN ---
Subjective - Date & Time of Evaluation Date of Evaluation: 09/22/18 Time of Evaluation: 07:58 - Subjective Subjective: Patient states that the pain has improved. She has not vomited since yesterday around the time of the repeat CT scan. She has not had a bowel movement since her arrival on the floor. Objective - Vital Signs/Intake and Output Vital Signs (last 24 hours): Temp Pulse Resp BP Pulse Ox 98 F 50 L 20 156/70 H 96 09/22/18 07:56 09/22/18 07:56 09/22/18 07:56 09/22/18 07:56 09/22/18 07:56 Intake and Output: 09/22/18 09/22/18 06:59 18:59 Intake Total 750 Balance 750 - Medications Medications: Current Medications Albuterol/Ipratropium (Combivent Respimat) 1 puff IH RQ8 [facility] Last Admin: 09/22/18 07:41 Dose: 1 puff Alprazolam (Xanax) 0.5 mg PO HS [facility] Last Admin: 09/21/18 21:57 Dose: 0.5 mg Aspirin (Aspirin Chewable) 81 mg PO DAILY [facility] Last Admin: 09/21/18 09:21 Dose: 81 mg Ciprofloxacin (Cipro 400mg/200ml Dsw) 400 mg in 200 mls @ 133 mls/hr IVPB Q12H [facility]; Protocol Last Admin: 09/22/18 00:14 Dose: 133 mls/hr Metronidazole (Flagyl) 500 mg in 100 mls @ 100 mls/hr IVPB Q8H [facility]; Protocol Last Admin: 09/22/18 05:35 Dose: 100 mls/hr Dextrose/Sodium Chloride (Dextrose 5%/0.45% Ns 1000 Ml) 1,000 mls @ 75 mls/hr IV .[id number] [facility] Last Admin: 09/21/18 18:26 Dose: 75 mls/hr Acetaminophen 1,000 mg/ (Miscellaneous) 100 mls @ 400 mls/hr IV Q6 PRN PRN Reason: Pain, moderate (4-7) Stop: 09/22/18 17:18 Potassium Chloride/Dextrose/Sod Cl (Potassium Chl 40 Meq In D5-1/2ns) 1,000 mls @ 75 mls/hr IV .[id number] [facility] Last Admin: 09/21/18 21:56 Dose: 75 mls/hr Losartan Potassium (Cozaar) 25 mg PO Q12 [facility] Last Admin: 09/21/18 21:57 Dose: 25 mg Morphine Sulfate (Morphine) 2 mg IVP Q6 PRN PRN Reason: Pain, severe (8-10) Last Admin: 09/22/18 04:15 Dose: 2 mg Ondansetron HCl (Zofran Inj) 4 mg IVP Q6H PRN PRN Reason: Nausea/Vomiting Last Admin: 09/21/18 12:37 Dose: 4 mg Pantoprazole Sodium (Protonix Inj) 40 mg IVP DAILY [facility] Last Admin: 09/21/18 09:22 Dose: 40 mg - Labs Labs: 09/21/18 14:00 09/21/18 14:00 - Constitutional Appears: No Acute Distress - Head Exam Head Exam: ATRAUMATIC, NORMOCEPHALIC - Eye Exam Eye Exam: EOMI, PERRL - Neck Exam Neck Exam: absent: Lymphadenopathy, Thyromegaly - Respiratory Exam Respiratory Exam: NORMAL BREATHING PATTERN. absent: Rales, Rhonchi, Wheezes - Cardiovascular Exam Cardiovascular Exam: REGULAR RHYTHM, +S1, +S2. absent: Gallop, Rubs, Murmur - GI/Abdominal Exam GI & Abdominal Exam: Soft, Normal Bowel Sounds. absent: Tenderness, Organomegaly - Rectal Exam Rectal Exam: Deferred - Extremities Exam Extremities Exam: absent: Calf Tenderness, Pedal Edema Assessment and Plan (1) Diarrhea Assessment & Plan: Diarrhea, vomiting, and abdominal pain have improved. The repeat CT scan shows resolution of the previously-reported thickening of the colon wall. Will adavance diet and observe. Status: Acute
[2018-09-22 08:35] LABS: BLOOD UREA NITROGEN 8 mg/dL (7-17); GFR NON-AFRICAN AMERICAN > 60
--- NOTE | 2018-09-22 12:47 | PN ---
DATE: 09/22/2018 TIME OF VISIT: At 08:18 a.m. SUBJECTIVE: The patient is now comfortable than yesterday. Less pain noted. No vomiting. She has no bowel movements. The patient was seen by otr owner operator truck driver this morning, recommended to advance the diet at this time, on IV fluid. PHYSICAL EXAMINATION: VITAL SIGNS: Temperature is 98, pulse 50, blood pressure 156/70, saturation is 98%. HEENT: PERRLA. NECK: Supple. CHEST: Bilateral good air entry. ABDOMEN: Abdominal tenderness in the left upper quadrant area noted. EXTREMITIES: No pedal edema. LABORATORY DATA: No labs done today. CAT scan of the abdomen, which was done last night, is showing evidence of improvement in the colitis. ASSESSMENT AND PLAN: A 58-year-old female with a history of chronic obstructive pulmonary disease, nonobstructive coronary artery disease, cervical and lumbar spinal fusion surgeries, on pain management, admitted with acute pancolitis, on Cipro and Flagyl. We will continue the intravenous antibiotic and intravenous fluid. We will start the patient on clear liquid diet today. If tolerates, we will advance the diet and possible discharge plan once the patient is clinically stable and cleared by the Gastroenterology. Carol Wong MD
[2018-09-22] MEDS: Potassium Chl 40 mEq in D5-1/2 1,000 ML IV SCH ×2 (13:47→23:55)
[2018-09-23] MEDS: Albuterol-Ipratrop 20 mcg/actuation (4 g) IH SCH ×2 (00:38→07:39)
[2018-09-23] MEDS: Potassium Chl 40 mEq in D5-1/2 1,000 ML IV SCH (02:43)
[2018-09-23] MEDS: metroNIDAZOLE IV 500 mg/100 ml 500 MG/100 ML BAG IVPB SCH (05:49)
[2018-09-23 08:08] VITALS: RESP 20
[2018-09-23] MEDS: Ciprofloxacin 400mg/200ml D5W 400 MG/200 ML BAG IVPB SCH (11:03)
--- NOTE | 2018-09-23 14:37 | CP.PCM.PN ---
Subjective - Date & Time of Evaluation Date of Evaluation: 09/23/18 Time of Evaluation: 14:35 - Subjective Subjective: Patient denies having abdominal pain, nausea, vomiting. She has not had a bowel movement in several days. She is tolerating the diet. Objective - Vital Signs/Intake and Output Vital Signs (last 24 hours): Temp Pulse Resp BP Pulse Ox 98 F 60 20 147/74 94 L 09/23/18 08:07 09/23/18 09:42 09/23/18 08:07 09/23/18 09:42 09/23/18 08:07 Intake and Output: 09/23/18 09/23/18 06:59 18:59 Intake Total 600 600 Balance 600 600 - Medications Medications: Current Medications Albuterol/Ipratropium (Combivent Respimat) 1 puff IH RQ8 [facility] Last Admin: 09/23/18 07:39 Dose: 1 puff Alprazolam (Xanax) 0.5 mg PO HS [facility] Last Admin: 09/22/18 21:46 Dose: 0.5 mg Aspirin (Aspirin Chewable) 81 mg PO DAILY [facility] Last Admin: 09/23/18 09:47 Dose: 81 mg Ciprofloxacin (Cipro) 500 mg PO BID [facility]; Protocol Last Admin: 09/23/18 12:15 Dose: 500 mg Losartan Potassium (Cozaar) 25 mg PO Q12 [facility] Last Admin: 09/23/18 09:46 Dose: 25 mg Metronidazole (Flagyl) 500 mg PO Q8H [facility]; Protocol Last Admin: 09/23/18 13:42 Dose: 500 mg Morphine Sulfate (Morphine) 2 mg IVP Q6 PRN PRN Reason: Pain, severe (8-10) Last Admin: 09/23/18 05:50 Dose: 2 mg Ondansetron HCl (Zofran Inj) 4 mg IVP Q6H PRN PRN Reason: Nausea/Vomiting Last Admin: 09/21/18 12:37 Dose: 4 mg Pantoprazole Sodium (Protonix Inj) 40 mg IVP DAILY [facility] [place] Last Admin: 09/23/18 09:44 Dose: 40 mg - Labs Labs: 09/21/18 14:00 09/22/18 08:11 - Constitutional Appears: No Acute Distress - Head Exam Head Exam: ATRAUMATIC, NORMOCEPHALIC - Eye Exam Eye Exam: EOMI, PERRL - Neck Exam Neck Exam: absent: Lymphadenopathy, Thyromegaly - Respiratory Exam Respiratory Exam: NORMAL BREATHING PATTERN. absent: Rales, Rhonchi, Wheezes - Cardiovascular Exam Cardiovascular Exam: REGULAR RHYTHM, +S1, +S2. absent: Gallop, Rubs, Murmur - GI/Abdominal Exam GI & Abdominal Exam: Soft, Normal Bowel Sounds. absent: Tenderness, Mass, Organomegaly - Rectal Exam Rectal Exam: Deferred - Extremities Exam Extremities Exam: absent: Calf Tenderness, Pedal Edema Assessment and Plan (1) Diarrhea Assessment & Plan: Patient is doing better. Pain, diarrhea, and vomiting have resolved. Recommend discharge planning and office follow-up. Status: Acute
[2018-09-24] MEDS: Albuterol-Ipratrop 20 mcg/actuation (4 g) IH SCH ×2 (00:38→08:08)
[2018-09-24 08:16] VITALS: TEMP 97.8; O2SAT 97
[2018-09-24 09:34] VITALS: BP 159/73; PULSE 72
[2018-09-24] MEDS ORDERED: Pantoprazole 40 mg EC Tab PO SCH (10:00)
--- NOTE | 2018-10-01 01:32 | PN ---
DATE: 09/23/2018 TIME: 6:30 p.m. SUBJECTIVE: The patient today is feeling much better. No more vomiting noted, and she has no diarrhea noted. Abdominal pain is also improving. The patient was earlier seen by density control puncher. Currently, she is receiving ciprofloxacin and Flagyl. PHYSICAL EXAMINATION: VITAL SIGNS: Currently temperature 98, pulse 60, blood pressure 147/74, saturation is 94%. CHEST: Good air entry. CARDIOPULMONARY: Regular heart sounds. ABDOMEN: No tenderness noted. CENTRAL NERVOUS SYSTEM: Alert, awake, oriented x3. No functional neurological deficits. ASSESSMENT AND PLAN: The patient admitted initially with diarrhea and abdominal pain and pancolitis, most likely secondary to possible salmonella infection. Currently, she is on antibiotics, doing well. We will discharge the patient possibly tomorrow. Carol Wong MD
--- NOTE | 2018-10-01 04:56 | DS ---
HISTORY OF PRESENT ILLNESS: A 58-year-old female with a history of hypertension, COPD, cervical spondylosis, lumbar disk disease, status post surgical intervention for both cervical and lumbar disks with diskectomy and laminectomy, also had thyroidectomy, following thyromegaly and abnormal thyroid biopsy, also on chronic pain management, admitted to the hospital with severe abdominal pain, nausea, vomiting, poor intake for at least three days' duration. Few days ago, the patient went to [facility], and the patient was eating chicken as well as salads, and following that food, she started having increasing abdominal pain. The patient's symptoms got worse. She called my office, and I advised her to go to the emergency room. In the emergency room, the patient was continued to have increasing abdominal discomfort, pain, nausea, vomiting, and also was having frequent diarrhea. No blood in that noted. PAST MEDICAL HISTORY: The patient has a multiple past medical history. PAST SURGICAL HISTORY: She has also had surgical history, multiple for the back as well as in the cervical region, cholecystectomy, and partial thyroidectomy. FAMILY HISTORY: Significant for hypertension, CAD, and also history of AIDS in the family. PHYSICAL EXAMINATION: GENERAL: In the beginning, the patient has diffuse abdominal pain. VITAL SIGNS: Initially have mild tachycardia and hypertension. The patient was started on intravenous IV fluid earlier. LABORATORY DATA: The WBC was also noted to be on the high side. COURSE IN THE HOSPITAL: The patient was hospitalized with suspected colitis as the CAT scan of the abdomen showing evidence of diffuse pancolitis. The patient was started on ciprofloxacin and Flagyl intravenously, kept n.p.o. GI evaluation was called in. Over the course of time, the patient's abdominal pain slowly improved. She was started tolerating the feeding. Stool workup on multiple testing negative most of them, but equivocal for Salmonella O type, noted equivocally high. I discussed with the sales and service advisor as the patient possibly has Salmonella infection. I advised her to continue Cipro and Flagyl for one more week. She will continue the rest of her home medication, and we will follow up the patient. FINAL DIAGNOSIS: Acute pancolitis, likely secondary to infectious process, improving markedly. Carol Wong MD
== END 2018-09-24 14:20 | disposition home or self-care (01) | DRG 373 ==
LOC: C.ER 19:07 → C.9E 23:08 → C.5S 09-20 07:20
PROVIDERS: ADMIT Internal Medicine; ATTEND Internal Medicine
DX: A02.0 Salmonella enteritis (principal); J43.9 Emphysema, unspecified; K57.90 Diverticulosis of intestine, part unspecified, without perforation or abscess without bleeding; E89.0 Postprocedural hypothyroidism; I10 Essential (primary) hypertension; I25.10 Atherosclerotic heart disease of native coronary artery without angina pectoris; M81.0 Age-related osteoporosis without current pathological fracture; K29.70 Gastritis, unspecified, without bleeding; E78.00 Pure hypercholesterolemia, unspecified; Z87.891 Personal history of nicotine dependence; Z86.010 Personal history of colon polyps; Z90.49 Acquired absence of other specified parts of digestive tract; Z98.1 Arthrodesis status; Z87.440 Personal history of urinary (tract) infections; Z82.49 Family history of ischemic heart disease and other diseases of the circulatory system

== ENCOUNTER 2018-11-19 12:57 | Outpatient (CLI) | payer MEDICARE, MEDICAID | END 2018-11-19 12:58 | disposition home or self-care (01) | LOC: C.CTH 12:57 | DX: Z12.31 Encounter for screening mammogram for malignant neoplasm of breast (principal) ==

== ENCOUNTER 2018-12-02 12:55 | Outpatient (CLI) | payer MEDICARE, MEDICAID | END 2018-12-02 12:56 | disposition home or self-care (01) | LOC: C.CTH 12:56 ==

== ENCOUNTER → 2019-02-01 | Outpatient (CLI) | payer MEDICARE, MEDICAID | END | disposition home or self-care (01) | LOC: C.LAB 10:01 | DX: E78.00 Pure hypercholesterolemia, unspecified (principal); J43.9 Emphysema, unspecified; I10 Essential (primary) hypertension; F32.9 Major depressive disorder, single episode, unspecified; R53.83 Other fatigue; G47.33 Obstructive sleep apnea (adult) (pediatric) ==

== ENCOUNTER → 2019-02-01 | Outpatient (CLI) | payer MEDICARE, MEDICAID | END | disposition home or self-care (01) | LOC: C.LAB 10:11 | DX: R10.13 Epigastric pain (principal); K57.30 Diverticulosis of large intestine without perforation or abscess without bleeding; K21.9 Gastro-esophageal reflux disease without esophagitis; B37.81 Candidal esophagitis; K59.00 Constipation, unspecified; K44.9 Diaphragmatic hernia without obstruction or gangrene; Z86.010 Personal history of colon polyps ==

== ENCOUNTER 2019-02-03 09:09 | Outpatient (CLI) | payer MEDICARE, MEDICAID | END 2019-02-03 09:10 | disposition home or self-care (01) | LOC: C.CTH 09:09 | DX: R10.13 Epigastric pain (principal) ==

== ENCOUNTER 2019-03-23 08:29 | Outpatient (CLI) | payer MEDICARE, MEDICAID | END 2019-03-23 08:30 | disposition home or self-care (01) | LOC: C.VASC 08:29 ==